=== PATIENT | female | born 1940 | race Caucasian/White ===

== ENCOUNTER 2017-04-08 12:12 | Emergency (ER) | payer OTHER, MEDICARE ==
--- NOTE | 2017-04-08 12:22 | PDOC ---
Attending Attestation - Resident Resident Name: Norah Love - ED Attending Attestation I have performed the following: I have examined & evaluated the patient, The case was reviewed & discussed with the resident, I agree w/resident's findings & plan, Exceptions are as noted - HPI HPI: 04/08/17 12:40 76yo F hx COPD, breast ca in remission, HTN, lung nodule p/w fall after her pants leg was caught on a drawer. She fell onto her R side with head strike and reports a few seconds of LOC. Per her , she was back to her baseline immediately when she came to. Reports R arm pain but no headache. Was able to walk afterwards. Has otherwise been in her USOH. Denies recent fevers, chills, CP, SOB, abd pain, N/V/D, LE edema, dysuria. - Physicial Exam PE: 04/08/17 12:47 GENERAL: Awake, alert, and fully oriented, in no acute distress HEAD: No signs of trauma EYES: PERRLA, EOMI, sclera anicteric, conjunctiva clear ENT: Auricles normal inspection, hearing grossly normal, nares patent, oropharynx clear without exudates. Moist mucosa NECK: Normal ROM, supple, no lymphadenopathy, JVD, or masses LUNGS: Breath sounds equal, clear to auscultation bilaterally. No wheezes, and no crackles HEART: Regular rate and rhythm, normal S1 and S2, no murmurs, rubs or gallops ABDOMEN: Soft, nontender, normoactive bowel sounds. No guarding, no rebound. No masses EXTREMITIES: RUE with pain in shoulder with passive range of motion, no edema, no bruising of RUE. No clubbing or cyanosis. No cords, erythema, or tenderness. 2+ distal pulses. Able to give thumbs up, okay sign, and outstretch her fingers in her RUE without difficulty. NEUROLOGICAL: Normal speech, cranial nerves intact, negative pronator drift, 5/ 5 strength in all 4 extremities, normal sensation to light touch in all 4 extremities, normal cerebellar exam, normal gait, normal reflexes and tone SKIN: Warm, Dry, normal turgor, no rashes or lesions noted. - Medical Decision Making 04/08/17 12:52 76-year-old female p/w RUE pain after a mechanical fall. Not on anticoagulation. Also with HS and LOC for a few seconds. Pt is neurologically intact but given LOC, will obtain CTH and c-spine. Will also image RUE. -CT -XR -tylenol -reassess
[2017-04-08 12:28] VITALS: BMI 20.7
--- NOTE | 2017-04-08 12:38 | PDOC ---
History of Present Illness - General Chief Complaint: Syncope/Near Syncope Stated Complaint: FALL Time Seen by Provider: 04/08/17 12:20 History Source: Patient, Family - History of Present Illness Initial Comments: 04/08/17 12:37 CC: Mechanical Fall Patient is a 76 y.o. female with a PMH of HTN, RA, h/o Breast CA (s/p L lumpectomy in 1997) and inoperable lung nodule who presents to our ED today c/o mechanical fall and subsequent R upper arm pain. Patient was bending down to arrange juarez in a flowerpot on the edge of her driveway when her pant leg was caught in a drawer on the driveway (patient's was removing furniture from the garage). Patient states she fell onto her right side hitting her head and possibly losing consciousness for few seconds. Patient denies any pre-fall shortness of breath, lightheadedness, blurry vision of confusion. Patient states her helped her post fall and further denies any confusion or headache. PMH: HTN, h/o Breast CA, lung nodule, rheumatoid arthritis (as per EMR, patient has h/o pancreatitis and multiple episodes of syncope) Past surgical: L lumpectomy (1997), appendicitis (childhood) Social: (-) nicotine, (-) alcohol, (-) marijuana/cocaine/heroin PCP: Dr. Bowman Allergies: Morphine 04/08/17 12:50 04/08/17 13:03 04/08/17 13:15 Past History - Past Medical History Allergies/Adverse Reactions: Allergies Allergy/AdvReac Type Severity Reaction Status Date / Time morphine AdvReac Mild N/V Verified 04/08/17 12:17 Home Medications: Ambulatory Orders Amlodipine Besylate [Norvasc -] 5 mg PO BID 10/15/15 Labetalol HCl [Normodyne -] 200 mg PO BID 10/15/15 Prednisone [Deltasone -] 7 mg PO DAILY 04/14/16 Acetaminophen [Tylenol -] 500 mg PO Q8H #36 tablet 04/08/17 Anemia: Yes Asthma: No Cancer: Yes (BREAST) Cardiac Disorders: No CVA: Yes (tia) COPD: Yes (chronic hemoptysis) CHF: No Dementia: No Diabetes: No GI Disorders: Yes (gastritis, pancreatitis) Disorders: No HTN: Yes Hypercholesterolemia: No Liver Disease: No Psychiatric Problems: No Suicide Attempt (Hx): No Seizures: No Thyroid Disease: No - Surgical History Abdominal Surgery: Yes (stent placement pancreas) Appendectomy: Yes Cholecystectomy: No Orthopedic Surgery: No - Immunization History Immunization Up to Date: Yes - Psycho/Social/Smoking Cessation Hx Anxiety: No Suicidal Ideation: No Smoking Status: No Smoking History: Never smoked Have you smoked in the past 12 months: No Number of Cigarettes Smoked Daily: 0 Hx Alcohol Use: No Drug/Substance Use Hx: No Substance Use Type: None Hx Substance Use Treatment: No Review of Systems - Review of Systems Constitutional: No: Fever, Weakness, Unexplained wgt Loss HEENTM: No: Blurred Vision, Double Vision, Tinnitus, Hearing Loss Respiratory: No: Shortness of Breath Cardiac (ROS): No: Chest Pain, Edema, Irregular Heart Rate, Lightheadedness, Palpitations ABD/GI: No: Constipated, Diarrhea Neurological: Yes: Pre-Existing Deficit, Tremors. No: Headache, Numbness All Other Systems: Reviewed and Negative *Physical Exam - Vital Signs Last Vital Signs Temp Pulse Resp BP Pulse Ox 98.3 F 70 20 129/69 95 04/08/17 12:13 04/08/17 12:13 04/08/17 12:13 04/08/17 12:13 04/08/17 12:13 - Physical Exam General Appearance: Yes: Appropriately Dressed, Thin HEENT: positive: EOMI, TRINY Neck: positive: Normal Thyroid, Supple Respiratory/Chest: positive: Lungs Clear, Normal Breath Sounds Cardiovascular: positive: Regular Rhythm, Regular Rate, S1, S2 Musculoskeletal: positive: Decreased Range of Motion (Decreased ROM in RUE, TTP over R humerus, RUE neurovascularly intact, R mandarin chinese teacher intact) Extremity: positive: Normal Capillary Refill, Other (R Humerus/Shoulder edematous c/o L) Integumentary: positive: Dry Neurologic: positive: boiler erector II-XII NML intact, Fully Oriented, Alert ED Treatment Course - RADIOLOGY Radiology Studies Ordered: Category Date Time Status HEAD CT WITHOUT CONTRAST [CT] Stat CT Scan 04/08/17 12:36 Ordered HUMERUS-RIGHT [RAD] Stat Radiology 04/08/17 12:36 Ordered Medical Decision Making - Medical Decision Making 04/08/17 13:41 Patient is a 76 y.o. female who presents following a mechanical fall earlier today in which she hit her head +/- LOC and . On PE, patient is A&O x4, however is c/o RUE pain, localized over her humerus. PLAN 1. CT head 2. R humerus XR 3. R shoulder XR 4. Chest XR 04/08/17 19:03 R humerus XR shows acute fracture of humeral head. CT chest/RUE shows comminuted fracture of humeral neck. Patient RUE stablized in a sling and patient discharged with instruction to follow-up with orthopedic surgery. Also , patient's PCP to be contacted Monday to give updated information on bronchiectasis appreciated on CXR and CT Chest. *DC/Admit/Observation/Transfer Diagnosis at time of Disposition: Falls - Discharge Dispostion Admit: No - Prescriptions Prescriptions: Acetaminophen [Tylenol -] 500 mg PO Q8H #36 tablet - Referrals Referrals: Raysa Davis MD [Primary Care Provider] - - Patient Instructions Additional Instructions: You were evaluated today in the ED and X-ray and CT scan showed that you have a fractured humerus. We have placed your arm in a sling, please keep the sling on daily and at night and remove only when showering. Please call Dr. Pryor, Orthopedic Surgery at [phone] on Monday (April 10, 2017) to make an appointment for further treatment. A prescription for supply Tylenol has been called to your pharmacy. Please return to the Emergency Department should you experience severe pain, shortness of breath or chest pain. - Attestations Physician Attestion: 04/08/17 18:35 I, Dr. Norah Love, attest that this document reflect my medical decision making.
[2017-04-08] MEDS ORDERED: ACETAMINOPHEN 500 MG TABLET (FP) PO ONE (12:50)
[2017-04-08 17:48] VITALS: TEMP 98.2
[2017-04-08 19:07] VITALS: BP 160/68; PULSE 66
== END 2017-04-08 19:09 | disposition home or self-care (01) ==
LOC: JER 12:12
DX: S42.294A Other nondisplaced fracture of upper end of right humerus, initial encounter for closed fracture (principal); S09.8XXA Other specified injuries of head, initial encounter; W01.198A Fall on same level from slipping, tripping and stumbling with subsequent striking against other object, initial encounter; Y93.H2 Activity, gardening and landscaping; Y92.014 Private driveway to single-family (private) house as the place of occurrence of the external cause; I10 Essential (primary) hypertension; M06.9 Rheumatoid arthritis, unspecified; Z85.3 Personal history of malignant neoplasm of breast
CPT/HCPCS: 70450-TC; 71020-TC; 71250-TC; 72125-TC; 73030-TC-RT; 73060-TC-RT; 73200-TC-RT; 99283-25

== ENCOUNTER 2017-04-16 13:05 | Inpatient (IN) | payer OTHER, MEDICARE ==
[2017-04-16 13:15] VITALS: BMI 20.7
--- NOTE | 2017-04-16 13:31 | PDOC ---
Attending Attestation - Resident Resident Name: Felicitas Epperson - ED Attending Attestation I have performed the following: I have examined & evaluated the patient, The case was reviewed & discussed with the resident, I agree w/resident's findings & plan, Exceptions are as noted - HPI HPI: 04/16/17 13:30 Broken Arm, Nausea and Vomiting after Pain Medicine - Physicial Exam PE: 04/16/17 13:30 VSS/ NAD/ Not Hypotensive Not Tachycardia - Medical Decision Making 04/16/17 13:[address] Epperson's assessment and plan
[2017-04-16] MEDS ORDERED: SODIUM CHLORIDE 1,000 ML IV STA ×2 (13:49→16:53)
[2017-04-16 14:35] LABS: BASOPHIL 0.3 % (0-2.0); EOSINOPHIL 1.7 % (0-4.5); MCH 28.6 pg (25.7-33.7); MCHC 32.7 g/dl (32.0-36.0); MEAN CELL VOLUME 87.4 fl (80-96); MEAN PLT VOLUME 7.1 fl (7.5-11.1); NEUTROPHILS 84.8 % (42.8-82.8); PLATELET COUNT 295 K/MM3 (134-434)
[2017-04-16] MEDS ORDERED: ONDANSETRON 4 MG/2 ML VIAL IVPB ONE (14:43)
[2017-04-16 15:01] LABS: ALBUMIN 3.2 g/dl (3.4-5.0); ANION GAP 9 (8-16); CALCIUM 9.1 mg/dL (8.5-10.1); CO2 27 mmol/L (21-32); CREATININE 1.2 mg/dL (0.55-1.02); GLUCOSE,RANDOM 124 mg/dL (74-106); SGPT/ALT 27 U/L (12-78)
[2017-04-16 15:05] LABS: ALK PHOS 82 U/L (45-117); BILIRUBIN,TOTAL 0.7 mg/dL (0.2-1.0); TOT PROT 7.7 g/dl (6.4-8.2); TROPONIN I < 0.02 ng/ml (0.00-0.05)
[2017-04-16 15:06] LABS: CPK 96 IU/L (26-192); SGOT/AST 43 U/L (15-37)
[2017-04-16] MEDS ORDERED: ONDANSETRON 4 MG/2 ML VIAL ONE (15:22)
[2017-04-16] MEDS ORDERED: traMADol HCL 50 MG TABLET PO ONE (15:27)
[2017-04-16] MEDS ORDERED: traMADol HCL 50 MG TABLET ONE (15:29)
[2017-04-16 16:16] LABS: URINE APPEARANCE CLEAR; URINE BILIRUBIN NEGATIVE (NEGATIVE); URINE BLOOD NEGATIVE (NEGATIVE); URINE COLOR LTYELLOW; URINE GLUCOSE (UA) NEGATIVE (NEGATIVE); URINE KETONE NEGATIVE (NEGATIVE); URINE LEUK ESTERASE NEGATIVE (NEGATIVE); URINE NITRITE NEGATIVE (NEGATIVE); URINE PROTEIN NEGATIVE (NEGATIVE); URINE UROBILINOGEN NEGATIVE mg/dL (0.2-1.0)
--- NOTE | 2017-04-16 16:58 | PDOC ---
History of Present Illness - General Chief Complaint: Nausea/Vomiting Stated Complaint: RT JOINT PAIN Time Seen by Provider: 04/16/17 13:17 History Source: Patient, Spouse Exam Limitations: Other (lethargic) - History of Present Illness Initial Comments: 76yo F with PMH of syncope, HTN presenting c/o nausea s/p syncope. Pt was last in ER one week ago with a Right humerus fx s/p mechanical fall. Pt has been taking Tramadol x 1 week for the fracture pain. Pt reports decreased appetite over the last week. This morning she had coffee and toast for breakfast, then went back to bed to lay down. At noon she syncopized in bed, and upon regaining consciousness felt nausea with some dry heaving prompting pt to come to the ER. Pt's at bedside assisted in giving history. Pt denies fever , chest pain, palpitations, SOB. 04/16/17 16:56 Timing/Duration: 1-3 hours Past History - Past Medical History Allergies/Adverse Reactions: Allergies Allergy/AdvReac Type Severity Reaction Status Date / Time morphine AdvReac Mild N/V Verified 04/16/17 13:15 Home Medications: Ambulatory Orders Amlodipine Besylate [Norvasc -] 5 mg PO DAILY 10/15/15 Labetalol HCl [Normodyne -] 200 mg PO BID 10/15/15 Prednisone [Deltasone -] 7 mg PO DAILY 04/14/16 Acetaminophen [Tylenol -] 500 mg PO Q8H #36 tablet 04/08/17 Tramadol HCl [Ultram] 50 mg PO Q6H PRN 04/16/17 Anemia: Yes Asthma: No Cancer: Yes (BREAST, inoperable lung Ca) Cardiac Disorders: No CVA: Yes (tia) COPD: Yes (chronic hemoptysis) CHF: No Dementia: No Diabetes: No GI Disorders: Yes (gastritis, pancreatitis) Disorders: No HTN: Yes Hypercholesterolemia: No Liver Disease: No Psychiatric Problems: No Suicide Attempt (Hx): No Seizures: No Thyroid Disease: No Other medical history: syncope, rheumatoid arthritis - Surgical History Abdominal Surgery: Yes (stent placement pancreas) Appendectomy: Yes Cholecystectomy: No Orthopedic Surgery: No Other Surgical History: Left lumpectomy 2/2 breast Ca 04/16/17 17:22 - Immunization History Immunization Up to Date: Yes - Psycho/Social/Smoking Cessation Hx Anxiety: No Suicidal Ideation: No Smoking Status: No Smoking History: Never smoked Have you smoked in the past 12 months: No Number of Cigarettes Smoked Daily: 0 Information on smoking cessation initiated: No Hx Alcohol Use: No Drug/Substance Use Hx: No Substance Use Type: None Hx Substance Use Treatment: No Review of Systems - Review of Systems Able to Perform ROS?: Yes Is the patient limited Chinese proficient: No Constitutional: Yes: Loss of Appetite, Weight Stable. No: Chills, Diaphoresis, Fever HEENTM: No: Recent change in vision, Ear Pain, Nose Pain, Throat Pain Respiratory: No: Cough, Orthopnea, Shortness of Breath, Stridor, Wheezing, Hemoptysis Cardiac (ROS): Yes: Syncope. No: Chest Pain, Irregular Heart Rate, Palpitations ABD/GI: Yes: Nausea. No: Abdominal Distended, Constipated, Diarrhea, Rectal Bleeding, Vomiting : No: Dysuria, Hematuria Musculoskeletal: Yes: Joint Pain (Right shoulder s/p humerus fx) Integumentary: Yes: Bruising (Right shoulder). No: Dryness, Lesions, Rash Neurological: Yes: Headache (mild), Weakness (mild generalized), Dizziness (mild ). No: Numbness, Paresthesia, Tingling *Physical Exam - Vital Signs Last Vital Signs Temp Pulse Resp BP Pulse Ox 97.7 F 77 16 160/80 98 04/16/17 13:07 04/16/17 15:48 04/16/17 15:48 04/16/17 15:48 04/16/17 15:48 - Physical Exam General Appearance: Yes: Thin, Other (lethargic, had difficulty answering all my questions. Pt's filled in the gaps for the history.). No: Apparent Distress HEENT: positive: EOMI, Normal Voice, Other (dry mucous membranes). negative: Pale Conjunctivae, Scleral Icterus (R), Scleral Icterus (L) Neck: positive: Trachea midline, Supple Respiratory/Chest: positive: Lungs Clear, Normal Breath Sounds. negative: Respiratory Distress, Accessory Muscle Use Cardiovascular: positive: Regular Rhythm, Regular Rate, S1, S2. negative: Murmur Gastrointestinal/Abdominal: positive: Soft. negative: Distended, Guarding, Rebound, Tenderness Extremity: negative: Swelling, Calf Tenderness, Erythema Integumentary: positive: Bruising (Right shoulder) Neurologic: positive: Alert. negative: Confused, Disoriented ED Treatment Course - LABORATORY CBC & Chemistry Diagram: 04/16/17 14:11 04/16/17 14:11 - ADDITIONAL ORDERS Additional order review: Laboratory Results 04/16/17 04/16/17 15:46 14:11 Sodium 137 Potassium 4.7 Chloride 101 Carbon Dioxide 27 Anion Gap 9 BUN 28 H Creatinine 1.2 H Creat Clearance w eGFR 43.56 Random Glucose 124 H Calcium 9.1 Total Bilirubin 0.7 AST 43 H D ALT 27 Alkaline Phosphatase 82 Creatine Kinase 96 Troponin I < 0.02 Total Protein 7.7 Albumin 3.2 L Urine Color Ltyellow Urine Appearance Clear Urine pH 7.0 Urine Protein Negative Urine Glucose (UA) Negative Urine Ketones Negative Urine Blood Negative Urine Nitrite Negative Urine Bilirubin Negative Urine Urobilinogen Negative Ur Leukocyte Esterase Negative 04/16/17 14:11 RBC 3.91 MCV 87.4 MCHC 32.7 RDW 15.0 MPV 7.1 L D Neutrophils % 84.8 H Lymphocytes % 5.8 L Monocytes % 7.4 D Eosinophils % 1.7 D Basophils % 0.3 - Medications Given in the ED: ED Medications Discontinued Medications Generic Name Dose Route Start Last Admin Trade Name Freq PRN Reason Stop Dose Admin Sodium Chloride 1,000 mls @ 1,000 mls/hr 04/16/17 13:49 04/16/17 13:51 Normal Saline - IV 04/16/17 14:48 1,000 mls/hr ASDIR STA Administration Ondansetron HCl 8 mg 04/16/17 14:43 04/16/17 15:28 Zofran Injection IVPB 04/16/17 14:44 8 mg ONCE ONE Administration Tramadol HCl 50 mg 04/16/17 15:27 04/16/17 15:47 Ultram - PO 04/16/17 15:28 50 mg ONCE ONE Administration Medical Decision Making - Medical Decision Making 76yo F with PMH of syncope, HTN presents c/o nausea s/p syncope. Pt with Right humerus fx s/p mechanical fall 1 week ago. Pt takes Tramadol for pain; nausea is a common adverse reaction. Pt likely dehydrated 2/2 decreased po intake over the last week. Zofran given for nausea 1 L NS bolus CBC with diff, CMP troponin (-) U/A (-) EKG -> NSR, LVH Pt has extensive hx of syncope, 30+ yrs, at all different times of day, with no discernable pattern. Most recent Head CT non-contrast and Chest CT non- contrast were on 04/08/17 showing no significant interval change. Tramadol given for pain After Zofran and NS bolus, pt looks better and reports she is feeling better. However, pt's will not take pt home as he feels she needs to be admitted. Pt's went home. Pt's PMD (Dr. Davis) called. Dr. Puentes is covering for Dr. Davis, and agreed to the admission since pt's has left. Consider Cardiology Consult and echo. 04/16/17 17:34 *DC/Admit/Observation/Transfer Diagnosis at time of Disposition: Syncope - Discharge Dispostion Admit: Yes - Referrals Referrals: Raysa Davis MD [Primary Care Provider] -
--- NOTE | 2017-04-16 22:47 | HP ---
DATE OF ADMISSION: 04/16/2017 CHIEF COMPLAINT: Syncope. HISTORY OF PRESENT ILLNESS: On the day of admission, this 76-year-old female with multiple medical problems including recent syncope and recent right humerus fracture for which the patient is taking tramadol, presents to the emergency room after the patient had an episode of syncope while she was lying in bed. This was soon after the patient had taken breakfast. The patient reports a feeling of weakness prior to the syncope, but no other associated complaints. The patient recovered normal mentation spontaneously and has no subsequent symptoms. The patient reports no specific aggravating or relieving factors. PAST MEDICAL HISTORY: Syncope, recent right humerus fracture, history of hypertension, history of COPD, history of rheumatoid arthritis, breast and lung cancer, gastritis and pancreatitis. PAST SURGICAL HISTORY: Pancreas stent placement, left lumpectomy secondary to breast cancer. FAMILY AND SOCIAL HISTORY: Unremarkable except for remote history of smoking. ALLERGIES: MORPHINE. HOME MEDICATIONS: Reviewed. REVIEW OF SYSTEMS: Unremarkable, except for presenting complaints. PHYSICAL EXAMINATION: General: This is an elderly female, in no acute distress. Vital signs: Temperature on admission 97.7 degrees Fahrenheit, pulse 77 per minute and regular, respiratory rate 16 per minute and nonlabored, blood pressure initially 160/80 and later 135/80, oxygen saturation 98%. HEENT: Examination is within normal limits. Neck: Supple with no JVD. Chest: Clear to auscultation with scattered crackles. Good air entry. No use of accessory muscles. Heart: Rate and rhythm are regular. S1, S2 heard. Abdomen: Soft, nontender, nondistended with normal bowel sounds. Extremities: No edema. Neurologic: The patient was awake, alert, oriented x3 with no gross focal neurological deficits. LABORATORY: WBC count is 10, hemoglobin 11.2, hematocrit was 34.2%, platelet count 295, sodium 137, potassium 4.7, BUN 28, creatinine 1.2. An EKG showed normal sinus rhythm with left ventricular hypertrophy by electrical criteria. IMPRESSION: 1. Syncope. 2. History of hypertension. 3. History of rheumatoid arthritis. 4. Chronic obstructive pulmonary disease. 5. Breast and lung cancer. 6. Transient ischemic attack in the past. 7. History of gastritis and pancreatitis. 8. History of recent right humerus fracture. PLAN: The patient will be admitted and monitored on telemetry. Cardiology will be consulted. The patient's usual medications have been continued. Blood pressure will be monitored and treated accordingly. Further management will be according to the results of these interventions. Tierney [id number]
[2017-04-16] MEDS: LABETALOL HCL 200 MG TABLET (FP) PO SCH (22:50)
[2017-04-16] MEDS: traMADol HCL 50 MG TABLET PO PRN (23:31)
[2017-04-17] MEDS: ACETAMINOPHEN 500 MG TABLET (FP) PO PRN ×2 (03:01→16:23)
[2017-04-17 07:52] LABS: BASOPHIL 0.3 % (0-2.0); EOSINOPHIL 1.8 % (0-4.5); MCH 28.5 pg (25.7-33.7); MCHC 32.7 g/dl (32.0-36.0); MEAN CELL VOLUME 87.1 fl (80-96); MEAN PLT VOLUME 6.9 fl (7.5-11.1); PLATELET COUNT 305 K/MM3 (134-434); RDW 14.9 % (11.6-15.6); WHITE BLOOD COUNT 7.2 K/mm3 (4.0-10.0)
[2017-04-17 08:23] LABS: ANION GAP 9 (8-16); CO2 27 mmol/L (21-32); GLUCOSE,RANDOM 67 mg/dL (74-106)
[2017-04-17 08:31] LABS: ALK PHOS 70 U/L (45-117); BILIRUBIN,TOTAL 0.7 mg/dL (0.2-1.0); SGOT/AST 23 U/L (15-37); SGPT/ALT 23 U/L (12-78); TROPONIN I 0.03 ng/ml (0.00-0.05)
[2017-04-17] MEDS: traMADol HCL 50 MG TABLET PO PRN ×2 (09:50→16:23)
[2017-04-17] MEDS: LABETALOL HCL 200 MG TABLET (FP) PO SCH ×2 (09:51→22:52)
[2017-04-17] MEDS: amLODIPine BESYLATE 5 MG TABLET (FP) PO SCH (09:52)
[2017-04-17] MEDS ORDERED: predniSONE 20 MG TABLET (UD) PO SCH (10:00)
[2017-04-17] MEDS: ENOXAPARIN NA (PORCINE) 40 MG/0.4 ML DISP.SYRIN SQ SCH (10:47)
[2017-04-17] MEDS: PREDNISONE PO SCH (13:38)
--- NOTE | 2017-04-17 18:44 | PN ---
Progress Note (short form) - Note Progress Note: Pt seen and examined. She is about 1 week s/p fall and right proximal humerus fracture. She c/o pain with motion, otherwise is comfortable. RUE is NVI Good ROM at the right elbow, forearm, wrist, fingers. NTD from an ortho pov I rec wearing a sling.
--- NOTE | 2017-04-17 20:44 | PN ---
Progress Note, Physician Chief Complaint: Feels better - Current Medication List Current Medications: Active Medications Acetaminophen (Tylenol -) 500 mg PO Q8H PRN PRN Reason: PAIN OR FEVER Last Admin: 04/17/17 16:23 Dose: 500 mg Amlodipine Besylate (Norvasc -) 5 mg PO DAILY [facility] Last Admin: 04/17/17 09:52 Dose: 5 mg Enoxaparin Sodium (Lovenox -) 40 mg SQ DAILY [facility] Last Admin: 04/17/17 10:47 Dose: 40 mg Labetalol HCl (Normodyne -) 200 mg PO BID [facility] Last Admin: 04/17/17 09:51 Dose: 200 mg Prednisone 5 mg/ Prednisone 2 (mg) 7 mg PO DAILY [facility] Last Admin: 04/17/17 13:38 Dose: 7 mg Tramadol HCl (Ultram -) 50 mg PO Q6H PRN PRN Reason: PAIN Last Admin: 04/17/17 16:23 Dose: 50 mg - Objective Vital Signs: Vital Signs Temperature 99.8 F H 04/17/17 17:50 Pulse Rate 76 04/17/17 17:50 Respiratory Rate 18 04/17/17 17:50 Blood Pressure 125/73 04/17/17 17:50 O2 Sat by Pulse Oximetry (%) 95 04/17/17 09:00 Constitutional: Yes: No Distress Neck: Yes: Supple Cardiovascular: Yes: Regular Rate and Rhythm, S1, S2 Respiratory: Yes: CTA Bilaterally Gastrointestinal: Yes: Normal Bowel Sounds, Soft Neurological: Yes: Alert, Oriented. No: Loss of Sensation ...Motor Strength: WNL Labs: CBC, BMP 04/17/17 06:00 04/17/17 06:00 Problem List - Problems (1) Syncope Assessment/Plan: Troponins negative, telemetry unremarkable, cardiology eval pending Code(s): R55 - SYNCOPE AND COLLAPSE Qualifiers: Encounter type: sequela (2) Humerus fracture Assessment/Plan: Seem by ortho, sling, pain control, rehab Code(s): S42.309A - UNSP FRACTURE OF SHAFT OF HUMERUS, UNSP ARM, INIT Qualifiers: Encounter type: subsequent encounter Humerus Location: proximal Fracture type: closed Fracture morphology: unspecified fracture morphology Laterality: right Fracture healing: with routine healing Qualified Code(s): S42.201D - Unspecified fracture of upper end of right humerus , subsequent encounter for fracture with routine healing
--- NOTE | 2017-04-17 22:16 | EKG ---
Test Reason : Blood Pressure : / mmHG Vent. Rate : 065 BPM Atrial Rate : 065 BPM P-R Int : 158 ms QRS Dur : 102 ms QT Int : 444 ms P-R-T Axes : 053 -24 045 degrees QTc Int : 461 ms NORMAL SINUS RHYTHM MODERATE VOLTAGE CRITERIA FOR LVH, MAY BE NORMAL VARIANT INFERIOR INFARCT , AGE UNDETERMINED ABNORMAL ECG WHEN COMPARED WITH ECG OF 14-APR-2016 17:10, NO SIGNIFICANT CHANGE WAS FOUND Confirmed by JANIS ALTAMIRANO MD ([id number]) on 04/17/2017 10:15:42 PM Referred By: Confirmed By:JANIS ALTAMIRANO MD
[2017-04-18] MEDS: traMADol HCL 50 MG TABLET PO PRN ×3 (06:37→22:15)
--- NOTE | 2017-04-18 08:48 | PN ---
Progress Note (short form) - Note Progress Note: 76 yo F admitted for a possible syncopal episode on Monday. went to lie down after lunch, took a short nap and when attempted to get up got very dizzy, slumped back to bed and her mind was very foggy. could not get her to the car so they called 911 to come to er. known history of frequent syncopal episodes without significant abnormalities. recently suffered a right humerus fracture, for which she used a sling and prn tramadol. 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
[2017-04-18 10:01] LABS: BASOPHIL 0.2 % (0-2.0); EOSINOPHIL 1.1 % (0-4.5); MCH 28.4 pg (25.7-33.7); MCHC 32.3 g/dl (32.0-36.0); MEAN CELL VOLUME 87.7 fl (80-96); MEAN PLT VOLUME 6.6 fl (7.5-11.1); NEUTROPHILS 72.6 % (42.8-82.8); PLATELET COUNT 330 K/MM3 (134-434); RDW 14.9 % (11.6-15.6); WHITE BLOOD COUNT 8.3 K/mm3 (4.0-10.0)
[2017-04-18] MEDS: amLODIPine BESYLATE 5 MG TABLET (FP) PO SCH (10:28)
[2017-04-18] MEDS: ENOXAPARIN NA (PORCINE) 40 MG/0.4 ML DISP.SYRIN SQ SCH (10:28)
[2017-04-18] MEDS: LABETALOL HCL 200 MG TABLET (FP) PO SCH ×2 (10:28→22:13)
[2017-04-18] MEDS ORDERED: PT OWN MED DRAWER 7, Y5N ONE (10:30)
[2017-04-18] MEDS: PREDNISONE PO SCH (10:32)
[2017-04-18 10:35] LABS: ALBUMIN 3.1 g/dl (3.4-5.0); ALK PHOS 84 U/L (45-117); ANION GAP 10 (8-16); BILIRUBIN,TOTAL 0.7 mg/dL (0.2-1.0); CALCIUM 9.4 mg/dL (8.5-10.1); CO2 29 mmol/L (21-32); CREATININE 1.3 mg/dL (0.55-1.02); GLUCOSE,RANDOM 93 mg/dL (74-106); SGOT/AST 27 U/L (15-37); SGPT/ALT 27 U/L (12-78); TOT PROT 7.5 g/dl (6.4-8.2); TROPONIN I 0.02 ng/ml (0.00-0.05)
--- NOTE | 2017-04-18 14:34 | PN ---
Progress Note (short form) - Note Progress Note: comfortable nvi Imp: doing well Plan: DC when medically ok. F/U as outpatient X 1 week
--- NOTE | 2017-04-18 20:41 | CONS ---
DATE OF CONSULTATION: 04/18/2017 TIME OF CONSULTATION: 7:15 p.m. CARDIOLOGY CONSULTATION REQUESTED BY: Raysa Davis MD CHIEF COMPLAINT: Loss of consciousness. The patient is a 76-year-old [place]ri[place] female with history of hypertension, polymyalgia rheumatica, and chronic obstructive pulmonary disease. Patient states that she recently had a syncopal episode which occurred while she was bending down, and felt lightheaded and fell on her right shoulder and apparently had transient loss of consciousness. She sustained a fracture of the shoulder. The patient, while she was home, got up from her bed and noticed lightheadedness that she describes as being severe. There is no history of dizziness, and she suddenly fell back and again lost consciousness that was witnessed by her . There is no history of loss of sphincter control, seizures, or focal weakness. There is no history of chest pain or discomfort either at rest or with exertion, history of exertional dyspnea especially walking up an incline, no history of paroxysmal nocturnal dyspnea or orthopnea. No history of palpitations. History of intermittent vertigo. No history of diabetes mellitus, hypercholesterolemia. No history of heart murmur. PAST HISTORY: As mentioned in the history of present illness. SURGICAL HISTORY: 1. Status post appendectomy. 2. History of stenting of the pancreatic duct. 3. Status post left lumpectomy followed by chemotherapy and radiation. 4. Status post left cataract extraction. SOCIAL HISTORY: . Has 3 children, 2 sons and a daughter. The sons are healthy. The daughter has had carcinoma of the fallopian tube. Does not smoke or drink. FAMILY HISTORY: Father in his late 80s of unknown cause. Mother in her 40s of unknown cause. Has 2 sisters and 2 brothers who are healthy. ALLERGIES: Patient is intolerant to MORPHINE. CURRENT MEDICATIONS: 1. Prednisone 7 mg p.o. daily. 2. Lovenox 40 mg subcutaneous daily. 3. Amlodipine 5 mg p.o. daily. 4. Labetalol 200 mg p.o. b.i.d. 5. Tramadol 50 mg q.6 h. p.r.n. REVIEW OF SYSTEMS: Constitutional: No history of chills, fever or night sweats. No history of unintentional weight loss. HEENT: Denies having any recent headaches, diplopia, or blurred vision. No history of epistaxis, hoarseness. No history of recent tinnitus. History of vertigo. No history of deafness reported. Cardiovascular: No history of palpitations, chest pain or discomfort. No history of rheumatic fever. Respiratory: History of COPD. No history of recent cough, expectoration or hemoptysis. No history of tuberculosis. Gastrointestinal: No history of nausea, vomiting, melena, or hematemesis. No history of abdominal pain or discomfort. No history of change in bowel habits. Neurological: See history of present illness. History of tremors involving the right hand and arm, right foot, and mouth, which according to the patient has progressively become more pronounced. Musculoskeletal: History of polymyalgia rheumatica. No history of arthralgias. Endocrine: No history of polyuria or polydipsia. Denies having intolerance to cold or warm weather. Hematological: No history of anemia, ecchymosis, or bleeding. EXAMINATION: General: A 76-year-old female who is in no acute distress. She was alert, coherent. There is no pallor, cyanosis, clubbing, or jaundice. Vital Signs: Blood pressure was 146/75 mmHg. Pulse was 82 beats per minute and regular. She was afebrile. Respirations were 18 per minute. Neck: Supple. No jugular venous distention. Carotids were equal and upstrokes were normal. No bruits were heard and no thyromegaly was present. Heart: PMI was in the 5th intercostal space. No heaves or thrills. S1 and S2 were normal. No murmur or gallops were heard. Lungs: Clear on auscultation. Chest: Probable scoliosis. Expansion was symmetrical. Abdomen: Soft, slightly protuberant, and nontender. No hepatosplenomegaly or palpable masses were felt. Bowel sounds were heard, no bruits were present. Extremities: No calf tenderness or dependent edema. Pulses were equal. Posterior tibial pulses could not be palpated. There were resting and intentional tremors involving the right hand, right foot, and lips. LABORATORY DATA: CT scan of the head dated April 18: Since April 08, 2017, there is moderate atrophy, ventricular dilatation, and mild periventricular chronic microvascular ischemic changes. No mass lesion, focal acute infarct, or intracranial hemorrhage are identified. There is calcification of the cavernous carotid arteries. CBC April 18, 2017: WBC 8300, hemoglobin 11.7 g, platelet count 330,000. Monocytes were elevated at 13.7. Sodium 140, potassium 3.9, chloride 101, CO2 29 mmol/L, BUN 26, creatinine 1.3 mg/dL. Normal liver function tests. Calcium was 9.4 mg/dL. ECG April 16, 2017: Normal sinus rhythm, moderate voltage criteria for LVH, may be a normal variant. Inferior infarct, age indeterminate. When compared to ECG of April 14, 2016, no significant changes are found. IMPRESSION: 1. Syncope, etiology to be determined. 2. Hypertension. 3. Hypertensive . 4. Chronic obstructive pulmonary disease. 5. History of pancreatitis, status post stenting of the pancreatic duct. 6. Status post carcinoma of the breast. 7. History of tremors, etiology to be determined. Parkinsonism needs to be excluded. RECOMMENDATIONS: 1. Check blood pressure supine and standing. 2. Holter monitor. 3. Neurological evaluation. 4. Carotid ultrasound. 5. Cause of syncope is not determined. Patient should have a tilt table test and, if necessary, event monitoring. Thank you for your referral. Yours sincerely, ADAM WEBSTER M.D. [id number]
[2017-04-19] MEDS: traMADol HCL 50 MG TABLET PO PRN ×3 (05:59→20:40)
[2017-04-19 07:31] LABS: BASOPHIL 0.4 % (0-2.0); EOSINOPHIL 1.3 % (0-4.5); MCH 28.6 pg (25.7-33.7); MEAN CELL VOLUME 86.8 fl (80-96); PLATELET COUNT 310 K/MM3 (134-434); RDW 14.8 % (11.6-15.6); WHITE BLOOD COUNT 7.8 K/mm3 (4.0-10.0)
[2017-04-19 07:45] LABS: ANION GAP 8 (8-16); CALCIUM 8.9 mg/dL (8.5-10.1); CO2 31 mmol/L (21-32); GLUCOSE,RANDOM 77 mg/dL (74-106)
[2017-04-19 07:52] LABS: ALK PHOS 79 U/L (45-117); BILIRUBIN,TOTAL 0.7 mg/dL (0.2-1.0); CREATININE 1.1 mg/dL (0.55-1.02); SGOT/AST 24 U/L (15-37); SGPT/ALT 27 U/L (12-78); TOT PROT 6.9 g/dl (6.4-8.2); TROPONIN I 0.04 ng/ml (0.00-0.05)
--- NOTE | 2017-04-19 08:36 | PN ---
Progress Note (short form) - Note Progress Note: 76 yo F admitted for a possible syncopal episode on Monday. went to lie down after lunch, took a short nap and when attempted to get up got very dizzy, slumped back to bed and her mind was very foggy. could not get her to the car so they called 911 to come to er. known history of frequent syncopal episodes without significant abnormalities. recently suffered a right humerus fracture, for which she used a sling and prn tramadol. 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
[2017-04-19] MEDS ORDERED: PT OWN MED DRAWER 7, Y5N ONE (08:50)
[2017-04-19] MEDS: ACETAMINOPHEN 500 MG TABLET (FP) PO PRN (08:57)
[2017-04-19] MEDS: PREDNISONE PO SCH (09:00)
[2017-04-19] MEDS: ENOXAPARIN NA (PORCINE) 40 MG/0.4 ML DISP.SYRIN SQ SCH (09:00)
[2017-04-19] MEDS: LABETALOL HCL 200 MG TABLET (FP) PO SCH (09:01)
[2017-04-19] MEDS: amLODIPine BESYLATE 5 MG TABLET (FP) PO SCH (09:01)
--- NOTE | 2017-04-19 19:05 | PN ---
Progress Note (short form) - Note Progress Note: 76yer old [place] female admitted with H/O syncope,known case of hypertension, polymyagia rheumatica and COPD.No further LOC,no palpitations or dizziness.work up in progress. Active Medications Acetaminophen (Tylenol -) 500 mg PO Q8H PRN PRN Reason: PAIN OR FEVER Last Admin: 04/19/17 08:57 Dose: 500 mg Amlodipine Besylate (Norvasc -) 5 mg PO DAILY [facility] Last Admin: 04/19/17 09:01 Dose: 5 mg Enoxaparin Sodium (Lovenox -) 40 mg SQ DAILY [facility] Last Admin: 04/19/17 09:00 Dose: 40 mg Labetalol HCl (Normodyne -) 200 mg PO BID [facility] Last Admin: 04/19/17 09:01 Dose: 200 mg Prednisone 5 mg/ Prednisone 2 (mg) 7 mg PO DAILY [facility] Last Admin: 04/19/17 09:00 Dose: 7 mg Tramadol HCl (Ultram -) 50 mg PO Q6H PRN PRN Reason: PAIN Last Admin: 04/19/17 10:41 Dose: 50 mg 76 year old female in no distress,no pallor,cyanosis,clubbing or jaundice. Vital Signs - 8 hr 04/19/17 14:55 Pulse Rate [ 82 Sitting] Pulse Rate [ 88 Standing] Pulse Rate [ 70 Supine] Blood Pressure 103/65 [Sitting] Blood Pressure 90/46 [Standing] Blood Pressure 133/73 [Supine] NECK: Supple,no JVD,carotids equal,no bruits or thyromegly. HEART: PMI in 5th ICS,no heaves or thrills.S1 and S2 were normal,NEC heard long the LSB.Grade I/ systolic murmur at the apex,no gallops heard. LUNGS: Bilateral basilar crepitations. ABDOMEN: Soft,nontender,no organomegaly or masses felt. EXTREMITIES: No calf tenderness or dependent edema. CBC, BMP 04/19/17 06:30 04/19/17 06:30 Echocardiogram report reviewed; Mitral and Tricuspid valve thickening with mild mitral and tricuspid regurgitation. Aortic valve thickening and aortic regurgitation A: 1. Syncope ot undetermined etiology. 2. Hypertension. 3. Polymyalgia Rheumatica. REcommendation; 1. Patient will require tilt table test if work up is inconclusive. 2. Holter monitor. 3. CT scan of the chest.
--- NOTE | 2017-04-19 20:56 | CONSULT ---
Consult - text type - Consultation Consultation Note: NEUROLOGY CONSULTATION is greatly appreciated: This 76 yo RHG woman with h/o HTN on labetolol, amlodipine, breat Ca, lung Ca, gastritis and pancreatitis is admitted after syncope. Pt fell 1 week ago with right humerus fracture treated with a sling. She recalls bending forward, then losing her balance, falling forward and then brief LOC. On day of admission was feeling week and unsteady. Became whoosy, dizzy and lightheaded and had brief LOC. Rapidly reoriented. Since admission, BP's have varied from 90/46-155/80. EKG-NSR. CT of head (reviewed): Normal. Pt notes > 1 year (maybe up to three) of progressive tremor. CHELI: Right arm and thigh echymoses. No bruits. No head trauma. NEURO: MS/Speech: Normal CN II-XII: Normal aside from rhythmic jaw tremor. Motor: Rhythmic (4-5 cps) Rest tremor. + cogwheel rigidity increased by reinforcement. Right arm strength difficult to test due to pain but Pts moves all groups well. Otherwise strength is normal. Normal reflexes. Toes downgoing. Coord: No FTN dystaxia Sensory: Normal Gait: Mild flexed and shuffling. IMP: Parkinson's Disease. Probable associated dysautonomia with orthostatic hypotension and syncope. SUGGEST: Keep well hydrated. Follow orthostatic BP's. Decrease labetolol to 100 mg BID Add Sinemet CR 25/100 as follows: 1/2 PO TID with meals x 3 days then 1 PO TID with meals. Neuro f/u as out patient. Thank you very much, Lino Hampton MD
[2017-04-19] MEDS: LABETALOL HCL 100 MG TABLET (FP) PO SCH (21:13)
[2017-04-20] MEDS ORDERED: PT OWN MED DRAWER 7, Y5N ONE ×3 (05:32→09:29)
[2017-04-20] MEDS: traMADol HCL 50 MG TABLET PO PRN (05:37)
[2017-04-20 07:06] LABS: BASOPHIL 0.5 % (0-2.0); EOSINOPHIL 1.9 % (0-4.5); MCH 28.4 pg (25.7-33.7); MCHC 32.8 g/dl (32.0-36.0); MEAN CELL VOLUME 86.6 fl (80-96); MEAN PLT VOLUME 6.9 fl (7.5-11.1); NEUTROPHILS 67.7 % (42.8-82.8); PLATELET COUNT 293 K/MM3 (134-434); RDW 14.7 % (11.6-15.6); WHITE BLOOD COUNT 6.8 K/mm3 (4.0-10.0)
[2017-04-20 07:28] LABS: ALBUMIN 2.8 g/dl (3.4-5.0); ANION GAP 9 (8-16); BILIRUBIN,TOTAL 0.6 mg/dL (0.2-1.0); CALCIUM 8.9 mg/dL (8.5-10.1); CO2 28 mmol/L (21-32); GLUCOSE,RANDOM 77 mg/dL (74-106); SGOT/AST 20 U/L (15-37); SGPT/ALT 23 U/L (12-78); TOT PROT 6.8 g/dl (6.4-8.2)
[2017-04-20 07:29] LABS: ALK PHOS 80 U/L (45-117)
--- NOTE | 2017-04-20 09:09 | DS ---
Physical Examination Vital Signs: Vital Signs Temperature 98.1 F 04/20/17 05:47 Pulse Rate 101 H 04/20/17 05:47 Respiratory Rate 20 04/20/17 05:47 Blood Pressure 138/89 04/20/17 05:47 O2 Sat by Pulse Oximetry (%) 96 04/19/17 22:00 Constitutional: Yes: Calm Eyes: Yes: EOM Intact HENT: Yes: Normocephalic Neck: Yes: Trachea Midline Cardiovascular: Yes: Regular Rate and Rhythm Respiratory: Yes: CTA Bilaterally Gastrointestinal: Yes: Normal Bowel Sounds, Soft Peripheral Pulses WNL: Yes Wound/Incision: Yes: Other (humerus fracture with hematoma) Neurological: Yes: Alert, Oriented, Tremors, Unsteady Gait Psychiatric: Yes: WNL Labs: CBC, BMP 04/20/17 06:00 04/20/17 06:00 Discharge Summary Reason For Visit: SYNCOPE Current Active Problems Anemia due to blood loss, chronic (Acute) Generalized weakness (Acute) History of polymyalgia rheumatica (Acute) Humerus fracture (Acute) ILD (interstitial lung disease) (Acute) Orthostatic hypotension (Acute) Pulmonary hypertension (Acute) Seizure (Acute) Syncope (Acute) Hospital Course: admitted for syncopal/nearsyncopal episode head CT unchanged echo unremarkable telemetry monitoring unremarkable noted to have orthostatic hypotension was seen by neurology -likely Parkinsons BP meds were reduced started sinemet educated on how to avoid orthostatic BP drops medically stable to f/up as outpt offered VNS, offered rehab evaluation, pt refused both Condition: Fair - Instructions Referrals: Raysa Davis MD [Primary Care Provider] - Disposition: HOME - Home Medications Comprehensive Discharge Medication List: Ambulatory Orders Amlodipine Besylate [Norvasc -] 5 mg PO DAILY 10/15/15 Prednisone [Deltasone -] 7 mg PO DAILY 04/14/16 Acetaminophen [Tylenol .Extra-Strength -] 500 mg PO Q8H #36 tablet 04/08/17 Tramadol HCl [Ultram -] 50 mg PO Q6H PRN 04/16/17 Carbidopa/Levodopa *Cr* 25/100 [Sinemet *Cr* 25/100 -] 1 combo PO TIDCM #90 tab 04/20/17 Labetalol HCl [Normodyne -] 100 mg PO BID #60 tablet 04/20/17
[2017-04-20] MEDS: amLODIPine BESYLATE 5 MG TABLET (FP) PO SCH (09:18)
[2017-04-20] MEDS: LABETALOL HCL 100 MG TABLET (FP) PO SCH (09:18)
[2017-04-20] MEDS: ENOXAPARIN NA (PORCINE) 40 MG/0.4 ML DISP.SYRIN SQ SCH (09:18)
[2017-04-20] MEDS: ACETAMINOPHEN 500 MG TABLET (FP) PO PRN (09:22)
[2017-04-20] MEDS: PREDNISONE PO SCH (09:30)
--- NOTE | 2017-04-20 09:47 | PN ---
Progress Note (short form) - Note Progress Note: Pt seen and examined. She has a right proximal humerus fracture. She is doing well. Less pain, better ROM of the RUE, better function. Plan: she can be DC'd from an ortho pov, then f/u as an out pt in 7-10 days for a f/u xray needs a sling
[2017-04-20 10:54] VITALS: BP 142/76; PULSE 85; TEMP 98.6
== END 2017-04-20 11:33 | disposition home or self-care (01) | DRG 312 ==
LOC: JER 13:05 → JERBED 17:16 → J4S 23:18
PROVIDERS: ADMIT Internal Medicine; ATTEND Internal Medicine
DX: I95.1 Orthostatic hypotension (principal); C34.90 Malignant neoplasm of unspecified part of unspecified bronchus or lung; J84.9 Interstitial pulmonary disease, unspecified; R11.0 Nausea; R51 Headache; E86.0 Dehydration; G20 Parkinson's disease; I10 Essential (primary) hypertension; Z85.3 Personal history of malignant neoplasm of breast; Z86.73 Personal history of transient ischemic attack (TIA), and cerebral infarction without residual deficits; J44.9 Chronic obstructive pulmonary disease, unspecified; M35.3 Polymyalgia rheumatica; Z91.81 History of falling; S42.201D Unspecified fracture of upper end of right humerus, subsequent encounter for fracture with routine healing; S50.11XD Contusion of right forearm, subsequent encounter; S70.11XD Contusion of right thigh, subsequent encounter; W01.0XXD Fall on same level from slipping, tripping and stumbling without subsequent striking against object, subsequent encounter
CPT/HCPCS: 36415; 70450-TC; 80053; 81003; 84484; 85025; 93005; 93010; 93306-TC; 93880-TC; 97116-GP; 97161-GP; 99285-25

== ENCOUNTER 2017-04-25 12:13 | Inpatient (IN) | payer OTHER, MEDICARE ==
--- NOTE | 2017-04-25 12:40 | PDOC ---
History of Present Illness <Roddy Dempsey - Last Filed: 04/25/17 16:22> - General History Source: Patient Exam Limitations: No Limitations - History of Present Illness Initial Comments: 04/25/17 13:25 Patient is a 76 year old female with h/o temporal arteritis (diagnosed 3 yo ago) , polymyalgia rheumatica, Parkinsons disease HTN, breast Ca, lung Ca, gastritis and pancreatitis who presents to the ED sent in by her fact checker for vision changes and headache. She reports intermittent headache localized to the bilateral temples with associated left eye vision changes she describes as half of the eye blackness. Patient states that she was initially diagnosed with polymyalgia rheumatica and was started on prednisone 3 year ago and is currently being tapered. Patient notes that after taking second dose of prednisone she was able to receive mild alleviation of her headache. She denies nausea or vomiting. She denies any recent falls, states that her last fall was on 04/16 which she was evaluated at [facility] s/p syncopal episode and had a negative CT finding. ALL - morphine Credit Control Manager - Dr. Pugh PCP - Dr. Alvarez <Ev Ansari - Last Filed: 04/25/17 16:56> - General Chief Complaint: Headache Stated Complaint: HEADACHE, BLURRY VISION Time Seen by Provider: 04/25/17 12:40 Past History - Past Medical History Anemia: Yes Asthma: No Cancer: Yes (BREAST) Cardiac Disorders: No CVA: Yes (tia) COPD: Yes (chronic hemoptysis) CHF: No Dementia: No Diabetes: No GI Disorders: Yes (gastritis, pancreatitis) Disorders: No HTN: Yes Hypercholesterolemia: No Liver Disease: No Psychiatric Problems: No Suicide Attempt (Hx): No Seizures: No Thyroid Disease: No Other medical history: tremors - Surgical History Abdominal Surgery: Yes (stent placement pancreas) Appendectomy: Yes Cholecystectomy: No Orthopedic Surgery: No - Immunization History Immunization Up to Date: Yes - Psycho/Social/Smoking Cessation Hx Anxiety: No Suicidal Ideation: No Smoking Status: No Smoking History: Never smoked Have you smoked in the past 12 months: No Number of Cigarettes Smoked Daily: 0 Information on smoking cessation initiated: No Hx Alcohol Use: No Drug/Substance Use Hx: No Substance Use Type: None Hx Substance Use Treatment: No <Roddy Dempsey - Last Filed: 04/25/17 16:22> <Kay Ansariyna - Last Filed: 04/25/17 16:56> - Past Medical History Allergies/Adverse Reactions: Allergies Allergy/AdvReac Type Severity Reaction Status Date / Time morphine AdvReac Mild N/V Verified 04/25/17 12:21 Home Medications: Ambulatory Orders Amlodipine Besylate [Norvasc -] 5 mg PO DAILY 10/15/15 Prednisone [Deltasone -] 7 mg PO DAILY 04/14/16 Acetaminophen [Tylenol .Extra-Strength -] 500 mg PO Q8H #36 tablet 04/08/17 Carbidopa/Levodopa *Cr* 25/100 [Sinemet *Cr* 25/100 -] 1 combo PO TIDCM #90 tab 04/20/17 Labetalol HCl [Normodyne -] 100 mg PO BID #60 tablet 04/20/17 *Physical Exam - Vital Signs Last Vital Signs Temp Pulse Resp BP Pulse Ox 98 F 81 19 146/77 98 04/25/17 12:19 04/25/17 12:19 04/25/17 12:19 04/25/17 12:19 04/25/17 12:19 <Roddy Dempsey - Last Filed: 04/25/17 16:22> - Vital Signs Last Vital Signs Temp Pulse Resp BP Pulse Ox 98 F 81 19 146/77 98 04/25/17 12:19 04/25/17 12:19 04/25/17 12:19 04/25/17 12:19 04/25/17 12:19 - Physical Exam Comments: 04/25/17 13:26 GENERAL: The patient is awake, alert, and fully oriented, in no acute distress. HEAD:+left scalp tenderness. Normal with no signs of trauma. EYES: Pupils equal, round and reactive to light, extraocular movements intact, sclera anicteric, conjunctiva clear with no pallor. ENT: Ears normal, nares patent, oropharynx clear without exudates. Moist mucous membranes. NECK: Normal range of motion, supple without lymphadenopathy, JVD, or masses. LUNGS: Breath sounds equal, clear to auscultation bilaterally. No wheeze/ crackles. HEART: Regular rate and rhythm, normal S1 and S2 without murmur or rub. ABDOMEN: Soft/nontender/nondistended. BS wnl. No guarding or rebound. No palpable masses. No hepatosplenomegaly. EXTREMITIES: Normal range of motion, no edema. No clubbing or cyanosis. No cords, erythema, or tenderness. NEUROLOGICAL: +resting jaw and bilateral upper extremity tremors. Cranial nerves II through XII grossly intact. Normal speech. PSYCH: Normal mood, normal affect. SKIN: Warm, Dry, normal turgor, no rashes or lesions noted. <Ev Ansari - Last Filed: 04/25/17 16:56> Heart Score/ECG Review #1 04/25/17 16:56 Sinus at 81 LVH QTC normal Inferior and septal Q waves No acute ST changes <Ev Ansari - Last Filed: 04/25/17 16:56> ED Treatment Course - LABORATORY CBC & Chemistry Diagram: 04/25/17 13:00 04/25/17 13:00 <Roddy Dempsey - Last Filed: 04/25/17 16:22> - LABORATORY CBC & Chemistry Diagram: 04/25/17 13:00 04/25/17 13:00 - ADDITIONAL ORDERS Additional order review: 04/25/17 13:00 RBC 3.83 MCV 87.7 MCHC 32.1 RDW 15.3 MPV 6.6 L Neutrophils % 82.9 H D Lymphocytes % 9.0 D Monocytes % 7.7 Eosinophils % 0.1 D Basophils % 0.3 <Ev Ansari - Last Filed: 04/25/17 16:56> Medical Decision Making - Medical Decision Making 04/25/17 13:01 76y/o F h/o PMR and diagnosed temporal arteritis diagnosed years ago on steroids daily, recently tapered to 8mg p/w onset of L temporal headache yesterday with vision changes similar to past TA, so she took an additional dose of her prednisone, called her fact checker Dr. Pugh, and was referred to the ED. TEJEDA stightly improved but persistent, vision still not back to baseline. VS as noted alert, fluent speech, pleasant woman with baseline resting tremor + L scalp ttp, EOMI, gross visual acuity intact, 20/70 on L 76y/o F with h/o PMR/temporal arteritis p/w L scapular headache and L vision change yesterday, now improving. Case discussed with Dr. Pugh, who knows the patient well. Apparently patient has been having these exacerbations recently, previous ESR wnl (45, 03/28/17) and CRP nl, so steroid doses were not increased. Recommends checking levels today before giving treatment dose steroids. labs including esr/crp ct head consider iv steroids pending results dispo accordingly 04/25/17 15:52 ESR now 75, elevated compared to prior 45. Will d/w Dr. Pugh regarding increasing steroid treatment in light of this finding. CT otherwise unchanged, labs otherwise wnl, CRP at baseline 1.6. 04/25/17 15:56 D/W Dr. Pugh, recommends IV therapeutic dosing of solumedrol 80mg. Will admit for further management and ophtho eval. 04/25/17 16:22 Accepted for inpt med/surg by Dr. Romero. <Roddy Dempsey - Last Filed: 04/25/17 16:22> - Medical Decision Making 04/25/17 13:27 A call was placed to Dr. Pugh at 1:06 PM Case was discussed with Dr. Pugh at 1:13 PM <Ev Ansari - Last Filed: 04/25/17 16:56> *DC/Admit/Observation/Transfer - Discharge Dispostion Admit: Yes <Roddy Dempsey - Last Filed: 04/25/17 16:22> - Attestations Scribe Attestion: 04/25/17 13:26 Documentation prepared by KESHA Hart, acting as medical anthropology director for Roddy Dempsey MD. <Ev Ansari - Last Filed: 04/25/17 16:56> Diagnosis at time of Disposition: Polymyalgia rheumatica, Temporal arteritis Headache Qualifiers: Headache type: unspecified Headache chronicity pattern: acute headache Intractability: not intractable Qualified Code(s): R51 - Headache - Discharge Dispostion Condition at time of disposition: Fair - Referrals Referrals: Raysa Davis MD [Primary Care Provider] -
[2017-04-25 13:12] LABS: BASOPHIL 0.3 % (0-2.0); EOSINOPHIL 0.1 % (0-4.5); MCH 28.1 pg (25.7-33.7); MCHC 32.1 g/dl (32.0-36.0); MEAN CELL VOLUME 87.7 fl (80-96); MEAN PLT VOLUME 6.6 fl (7.5-11.1); NEUTROPHILS 82.9 % (42.8-82.8); PLATELET COUNT 366 K/MM3 (134-434); RDW 15.3 % (11.6-15.6); WHITE BLOOD COUNT 5.8 K/mm3 (4.0-10.0)
[2017-04-25 13:27] LABS: INR 1.04 (0.82-1.09); PROTHROMBIN TIME (PATIENT) 11.4 SEC (9.98-11.88)
[2017-04-25 13:29] LABS: ACTIVATED PTT 25.4 SECONDS (26.9-34.4)
[2017-04-25 14:43] LABS: ALBUMIN 3.3 g/dl (3.4-5.0); ANION GAP 12 (8-16); C-REACTIVE PROTEIN 1.6 MG/DL (0.00-0.3); CALCIUM 9.3 mg/dL (8.5-10.1); CO2 26 mmol/L (21-32); CREATININE 1.2 mg/dL (0.55-1.02); GLUCOSE,RANDOM 153 mg/dL (74-106); SGOT/AST 28 U/L (15-37); SGPT/ALT 30 U/L (12-78); TOT PROT 7.4 g/dl (6.4-8.2)
[2017-04-25 14:48] LABS: ALK PHOS 133 U/L (45-117); BILIRUBIN,TOTAL 0.4 mg/dL (0.2-1.0)
[2017-04-25 15:26] LABS: ERYTHROCYTE SEDIMENTATION RATE 75 mm/hr (0-30)
[2017-04-25] MEDS ORDERED: methylPREDNISolone NA SUCC 125 MG/2 ML VIAL IVPB ONE ×2 (15:55)
[2017-04-25 17:50] VITALS: BMI 21.4
[2017-04-25] MEDS: ACETAMINOPHEN 500 MG TABLET (FP) PO PRN (21:07)
[2017-04-25] MEDS ORDERED: LABETALOL HCL 100 MG TABLET (FP) PO SCH (22:00)
[2017-04-26] MEDS: ACETAMINOPHEN 500 MG TABLET (FP) PO PRN (05:04)
[2017-04-26] MEDS ORDERED: PT OWN MED DRAWER 7, Y5N ONE (06:47)
[2017-04-26] MEDS: amLODIPine BESYLATE 5 MG TABLET (FP) PO SCH (06:49)
[2017-04-26] MEDS: LABETALOL HCL 100 MG TABLET (FP) PO SCH ×2 (06:50→22:01)
--- NOTE | 2017-04-26 08:57 | HP ---
Admitting History and Physical - Primary Care Physician PCP: Raysa Davis - Admission Chief Complaint: headache and transient visual field deficit History of Present Illness: came to er yesterday with c/o left sided temporal headache and also noted transient left eye lateral visual field deficit. in er hypertensive, but visual field deficit resolved -according to patient after the steroid administration. now still has left sided TEJEDA and blurry vision without deficit. 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 temporal artery biopsy on was not consistent with arteritis.) - Past Surgical History Past Surgical History: Yes: Appendectomy (at age 18), Hernia Repair (L inguinal 1983) Additional Past Surgical History: left breast lumpectomy - Smoking History Smoking history: Never smoked Have you smoked in the past 12 months: No Aproximately how many cigarettes per day: 0 - Alcohol/Substance Use Hx Alcohol Use: No - Social History ADL: Independent History of Recent Travel: No Home Medications - Allergies Allergies/Adverse Reactions: Allergies Allergy/AdvReac Type Severity Reaction Status Date / Time morphine AdvReac Mild N/V Verified 04/25/17 12:21 - Home Medications Home Medications: Ambulatory Orders Amlodipine Besylate [Norvasc -] 5 mg PO DAILY 10/15/15 Prednisone [Deltasone -] 7 mg PO DAILY 04/14/16 Acetaminophen [Tylenol .Extra-Strength -] 500 mg PO Q8H #36 tablet 04/08/17 Carbidopa/Levodopa *Cr* 25/100 [Sinemet *Cr* 25/100 -] 1 combo PO TIDCM #90 tab 04/20/17 Labetalol HCl [Normodyne -] 100 mg PO BID #60 tablet 04/20/17 Family Disease History - Family Disease History Family Disease History: Other: Father ( of CVA in 90s, HTN), Brother (HTN, prostate ca), Sister (HTN), Daughter Other Family History: ovarian ca. thyroid ca. Review of Systems - Review of Systems Eyes: reports: Blurred Vision Neurological: reports: Headache Physical Examination Vital Signs: Vital Signs Temperature 97.9 F 04/26/17 05:18 Pulse Rate 92 H 04/26/17 05:18 Respiratory Rate 92 H 04/26/17 05:37 Blood Pressure 155/96 04/26/17 05:37 O2 Sat by Pulse Oximetry (%) 94 L 04/25/17 17:22 Constitutional: Yes: No Distress, Calm Eyes: Yes: Conjunctiva Clear. No: Diplopia HENT: Yes: Atraumatic, Normocephalic Neck: Yes: Trachea Midline Cardiovascular: Yes: Regular Rate and Rhythm Respiratory: Yes: CTA Bilaterally Gastrointestinal: Yes: Normal Bowel Sounds, Soft Musculoskeletal: Yes: Other (right humerus fracture with resolving hematoma) Edema: No Peripheral Pulses WNL: Yes Neurological: Yes: Tremors (resting and intentional), Unsteady Gait, Other (no focal deficit) Imaging - Results Cat Scan: Report Reviewed Problem List - Problems (1) Headache Code(s): R51 - HEADACHE Qualifiers: Headache type: unspecified Headache chronicity pattern: acute headache Intractability: not intractable Qualified Code(s): R51 - Headache (2) History of polymyalgia rheumatica Code(s): Z87.39 - PERSONAL HISTORY OF DISEASES OF THE MS SYS AND CONN TISS (3) ILD (interstitial lung disease) Code(s): J84.9 - INTERSTITIAL PULMONARY DISEASE, UNSPECIFIED (4) Polymyalgia rheumatica Code(s): M35.3 - POLYMYALGIA RHEUMATICA (5) COPD (chronic obstructive pulmonary disease) Code(s): J44.9 - CHRONIC OBSTRUCTIVE PULMONARY DISEASE, UNSPECIFIED Qualifiers : COPD type: unspecified COPD Qualified Code(s): J44.9 - Chronic obstructive pulmonary disease, unspecified (6) Hypertension Code(s): I10 - ESSENTIAL (PRIMARY) HYPERTENSION Qualifiers: Hypertension type: essential hypertension Qualified Code(s): I10 - Essential (primary) hypertension (7) Poorly controlled blood pressure Code(s): I99.8 - OTHER DISORDER OF CIRCULATORY SYSTEM Assessment/Plan with elevated ESR, temporal TEJEDA and visual deficit r/o temporal arteritis, high dose steroids until rheumatology and neuro eval requested vascular consult if biopsy is needed MRI brain r/o TIA
[2017-04-26] MEDS ORDERED: ALPRAZolam 0.25 MG TABLET PO SCH (09:11)
[2017-04-26] MEDS: methylPREDNISolone NA SUCC 40 MG/1 ML VIAL IVPB SCH (09:34)
[2017-04-26] MEDS: PANTOPRAZOLE 40 MG TABLET (FP) PO SCH (09:34)
[2017-04-26] MEDS ORDERED: amLODIPine BESYLATE 5 MG TABLET (FP) PO SCH (10:00)
--- NOTE | 2017-04-26 11:09 | EKG ---
Test Reason : Blood Pressure : / mmHG Vent. Rate : 081 BPM Atrial Rate : 081 BPM P-R Int : 162 ms QRS Dur : 094 ms QT Int : 380 ms P-R-T Axes : 059 -23 060 degrees QTc Int : 441 ms NORMAL SINUS RHYTHM POSSIBLE LEFT ATRIAL ENLARGEMENT LEFT VENTRICULAR HYPERTROPHY INFERIOR INFARCT (CITED ON OR BEFORE 04-MAY-2012) ANTEROSEPTAL INFARCT , AGE UNDETERMINED ABNORMAL ECG WHEN COMPARED WITH ECG OF 16-APR-2017 13:37, NO SIGNIFICANT CHANGE WAS FOUND Confirmed by JULIÁN LEON, LESLIE ([id number]) on 04/26/2017 11:08:34 AM Referred By: Confirmed By:LESLIE GALLEGO MD
[2017-04-26] MEDS ORDERED: ALPRAZolam 0.25 MG TABLET PO ONE (14:45)
--- NOTE | 2017-04-26 17:22 | CONSULT ---
Consult Consult Specialty:: Rheumatology - History of Present Illness History of Present Illness: 76 year old female, with a significant past medical history of anemia, breast CA , COPD, HTN, pancreatitis, fibromyalgia and chronic headaches admitted with transient hemianopia in the left eye and MRI findings incicative of acute infarct. Ruleout temporal arteritis. HPI On 10/15/15 the patient was admitted with a 4 month history of headaches, blurry vision and fatigue. She had been taking Prednisone 5 mg.d, She had atemporal artery biopsy that was reported as negative for temporal arteritis. On 04/16/17 she was admitted after she had a syncope and fracture of the right humerus. In the present visit the patient reports she has been having chronic severe headaches for the last year, mainly localized to the occipital region. Yesterday she developed sudden loss of vision in the nasal field of the left eye , that resolved after 3 hours. She denies change in headaches and denies joint pain. On admission she was started on Solumedrol 60 mg IV daily. MRI reported with small acute right occipital /temporal cortical infarct and small chroinic left cerebelar infarct. Other changes (mild volume loss with multiple foci of small vessel infarction in the periventricular white matter and brainstem) unchanged when compared with previous study. Laboratory work-up revealed ESR 75 and CRP 1.6. Creatinine 1.2. 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 temporal artery biopsy on was not consistent with arteritis.) - Past Surgical History Past Surgical History: Yes: Appendectomy (at age 18), Hernia Repair (L inguinal 1983) - Alcohol/Substance Use Hx Alcohol Use: No - Smoking History Smoking history: Never smoked Have you smoked in the past 12 months: No Aproximately how many cigarettes per day: 0 - Social History ADL: Independent History of Recent Travel: No Home Medications - Allergies Allergies/Adverse Reactions: Allergies Allergy/AdvReac Type Severity Reaction Status Date / Time morphine AdvReac Mild N/V Verified 04/25/17 12:21 - Home Medications Home Medications: Ambulatory Orders Amlodipine Besylate [Norvasc -] 5 mg PO DAILY 10/15/15 Prednisone [Deltasone -] 7 mg PO DAILY 04/14/16 Acetaminophen [Tylenol .Extra-Strength -] 500 mg PO Q8H #36 tablet 04/08/17 Carbidopa/Levodopa *Cr* 25/100 [Sinemet *Cr* 25/100 -] 1 combo PO TIDCM #90 tab 04/20/17 Labetalol HCl [Normodyne -] 100 mg PO BID #60 tablet 04/20/17 Family Disease History - Family Disease History Family Disease History: Other: Father ( of CVA in 90s, HTN), Brother (HTN, prostate ca), Sister (HTN), Daughter Other Family History: ovarian ca. thyroid ca. Review of Systems - Review of Systems Constitutional: reports: Malaise Eyes: reports: Other HENT: reports: No Symptoms Neck: reports: No Symptoms Cardiovascular: reports: No Symptoms Respiratory: reports: No Symptoms Gastrointestinal: reports: No Symptoms Musculoskeletal: reports: No Symptoms Physical Exam Vital Signs: Vital Signs Temperature 98.4 F 04/26/17 14:14 Pulse Rate 89 04/26/17 14:14 Respiratory Rate 16 04/26/17 14:14 Blood Pressure 147/79 04/26/17 14:14 O2 Sat by Pulse Oximetry (%) 94 L 04/25/17 17:22 Constitutional: Yes: No Distress Eyes: Yes: WNL HENT: Yes: WNL Neck: Yes: WNL Cardiovascular: Yes: WNL Respiratory: Yes: WNL Gastrointestinal: Yes: WNL Musculoskeletal: Yes: Other (Temporal arteries not tender and normal in pulsation and consistency. Tenderness in sylvester right arm related to recent fracture. No active joints.) Labs: Laboratory Tests 04/25/17 04/25/17 13:00 13:00 WBC 5.8 RBC 3.83 Hgb 10.8 Hct 33.6 MCV 87.7 MCH 28.1 MCHC 32.1 RDW 15.3 Plt Count 366 D MPV 6.6 L Neutrophils % 82.9 H D Lymphocytes % 9.0 D Monocytes % 7.7 Eosinophils % 0.1 D Basophils % 0.3 ESR 75 H Sodium 140 Potassium 3.9 Chloride 102 Carbon Dioxide 26 Anion Gap 12 BUN 23 H Creatinine 1.2 H Creat Clearance w eGFR 43.56 Random Glucose 153 H D Calcium 9.3 Total Bilirubin 0.4 D AST 28 D ALT 30 D Alkaline Phosphatase 133 H D C-Reactive Protein 1.6 H D Total Protein 7.4 Albumin 3.3 L Problem List - Problems (1) CVA (cerebral vascular accident) Assessment/Plan: Acute occipital CVA. The MRI findings help to explain visual symptoms. It is unlikely that the patient has temporal arteritis. As per discussion with Dr. Noble, she will call Dr. Hampton for further management. Code(s): I63.9 - CEREBRAL INFARCTION, UNSPECIFIED
--- NOTE | 2017-04-26 19:52 | CONSULT ---
Consult - History of Present Illness History of Present Illness: 76 year old woman on whom I performed a temporal artery biopsy in 2016. She was admitted with left eye vision loss and CT showing occlipital stroke. She has chronic headache in back of head and neck pain. She has fibromyalgia and is on chronic prednisone therapy. 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 temporal artery biopsy on was not consistent with arteritis.) - Past Surgical History Past Surgical History: Yes: Appendectomy (at age 18), Hernia Repair (L inguinal 1983) - Alcohol/Substance Use Hx Alcohol Use: No - Smoking History Smoking history: Never smoked Have you smoked in the past 12 months: No Aproximately how many cigarettes per day: 0 - Social History ADL: Independent History of Recent Travel: No Home Medications - Allergies Allergies/Adverse Reactions: Allergies Allergy/AdvReac Type Severity Reaction Status Date / Time morphine AdvReac Mild N/V Verified 04/25/17 12:21 - Home Medications Home Medications: Ambulatory Orders Amlodipine Besylate [Norvasc -] 5 mg PO DAILY 10/15/15 Prednisone [Deltasone -] 7 mg PO DAILY 04/14/16 Acetaminophen [Tylenol .Extra-Strength -] 500 mg PO Q8H #36 tablet 04/08/17 Carbidopa/Levodopa *Cr* 25/100 [Sinemet *Cr* 25/100 -] 1 combo PO TIDCM #90 tab 04/20/17 Labetalol HCl [Normodyne -] 100 mg PO BID #60 tablet 04/20/17 Family Disease History - Family Disease History Family Disease History: Other: Father ( of CVA in 90s, HTN), Brother (HTN, prostate ca), Sister (HTN), Daughter Other Family History: ovarian ca. thyroid ca. Physical Exam Vital Signs: Vital Signs Temperature 98.4 F 04/26/17 14:14 Pulse Rate 89 04/26/17 14:14 Respiratory Rate 16 04/26/17 14:14 Blood Pressure 147/79 04/26/17 14:14 O2 Sat by Pulse Oximetry (%) 94 L 04/25/17 17:22 Constitutional: Yes: Anxious Eyes: Yes: EOM Intact HENT: Yes: Other (No temporal tenderness. S/p biopsy left temporal artery) Problem List - Problems (1) Temporal arteritis Assessment/Plan: While clinical picture and elevated ESR and CRP could be suggestive for temporal arteritis, I would agree with Dr. Capone that this diagnosis is unlikely. She has had a negative biopsy in the past. She has underlying PMR and fibromyalgia and this will cause the lab findings. She is already on daily steroids and so the biopsy will not greatly alter her management. The vision changes are explained by her acute stroke. Code(s): M31.6 - OTHER GIANT CELL ARTERITIS
[2017-04-26] MEDS: ASPIRIN COATED 81 MG TABLET.EC PO SCH (20:30)
[2017-04-27] MEDS: ACETAMINOPHEN 500 MG TABLET (FP) PO PRN (01:08)
[2017-04-27 08:51] LABS: BASOPHIL 0.2 % (0-2.0); EOSINOPHIL 0.1 % (0-4.5); MCH 28.4 pg (25.7-33.7); MCHC 32.5 g/dl (32.0-36.0); MEAN CELL VOLUME 87.5 fl (80-96); NEUTROPHILS 68.2 % (42.8-82.8); PLATELET COUNT 403 K/MM3 (134-434); RDW 15.2 % (11.6-15.6); WHITE BLOOD COUNT 7.4 K/mm3 (4.0-10.0)
[2017-04-27 09:24] LABS: ALBUMIN 3.2 g/dl (3.4-5.0); ALK PHOS 124 U/L (45-117); ANION GAP 10 (8-16); BILIRUBIN,TOTAL 0.8 mg/dL (0.2-1.0); C-REACTIVE PROTEIN 0.5 MG/DL (0.00-0.3); CALCIUM 9.3 mg/dL (8.5-10.1); CO2 28 mmol/L (21-32); CREATININE 1.3 mg/dL (0.55-1.02); GLUCOSE,RANDOM 94 mg/dL (74-106); SGOT/AST 28 U/L (15-37); SGPT/ALT 16 U/L (12-78); TOT PROT 7.2 g/dl (6.4-8.2)
[2017-04-27] MEDS: PANTOPRAZOLE 40 MG TABLET (FP) PO SCH (09:49)
[2017-04-27] MEDS: ASPIRIN COATED 81 MG TABLET.EC PO SCH (09:49)
[2017-04-27] MEDS: LABETALOL HCL 100 MG TABLET (FP) PO SCH ×2 (09:49→21:27)
[2017-04-27] MEDS: amLODIPine BESYLATE 5 MG TABLET (FP) PO SCH ×2 (09:49→21:27)
[2017-04-27] MEDS: methylPREDNISolone NA SUCC 40 MG/1 ML VIAL IVPB SCH (09:49)
[2017-04-27 10:11] LABS: ERYTHROCYTE SEDIMENTATION RATE 50 mm/hr (0-30)
--- NOTE | 2017-04-27 12:24 | PN ---
Progress Note (short form) - Note Progress Note: Admitted for transient vision loss and left sided temporal/orbital pain CBC, BMP 04/27/17 08:00 04/27/17 08:00 Vital Signs Period Temp Pulse Resp BP Sys/Garcia Pulse Ox Last 24 Hr 98.1 F-98.4 F 81-89 16-20 147-161/79-90 94 vision has improved, but still has some floaters S1S2 RRR Lungs cta Abd soft NT no focal neurological deficit, ambulating in hallway resting tremor present. IMp MRI with small right occipital, temporal cortical acute infarcts recent Echo and carotid last week was unremarkable. holter was requested add asa, statin, improve BP control neuro/cardiology f/up requested consults appreciated Problem List - Problems (1) Headache Code(s): R51 - HEADACHE Qualifiers: Headache type: unspecified Headache chronicity pattern: acute headache Intractability: not intractable Qualified Code(s): R51 - Headache (2) History of polymyalgia rheumatica Code(s): Z87.39 - PERSONAL HISTORY OF DISEASES OF THE MS SYS AND CONN TISS (3) ILD (interstitial lung disease) Code(s): J84.9 - INTERSTITIAL PULMONARY DISEASE, UNSPECIFIED (4) Polymyalgia rheumatica Code(s): M35.3 - POLYMYALGIA RHEUMATICA (5) COPD (chronic obstructive pulmonary disease) Code(s): J44.9 - CHRONIC OBSTRUCTIVE PULMONARY DISEASE, UNSPECIFIED Qualifiers : COPD type: unspecified COPD Qualified Code(s): J44.9 - Chronic obstructive pulmonary disease, unspecified (6) Hypertension Code(s): I10 - ESSENTIAL (PRIMARY) HYPERTENSION Qualifiers: Hypertension type: essential hypertension Qualified Code(s): I10 - Essential (primary) hypertension (7) Poorly controlled blood pressure Code(s): I99.8 - OTHER DISORDER OF CIRCULATORY SYSTEM
--- NOTE | 2017-04-27 12:49 | CONSULT ---
Admitting History and Physical - Primary Care Physician PCP: Bozena Helton - Admission History of Present Illness: Admitted for transient vision loss and left sided temporal/orbital pain. 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 temporal artery biopsy on was not consistent with arteritis.) - Past Surgical History Past Surgical History: Yes: Appendectomy (at age 18), Hernia Repair (L inguinal 1983) Additional Past Surgical History: left breast lumpectomy - Smoking History Smoking history: Never smoked Have you smoked in the past 12 months: No Aproximately how many cigarettes per day: 0 - Alcohol/Substance Use Hx Alcohol Use: No - Social History ADL: Independent History of Recent Travel: No History - Admission Reason For Visit: TEMPORAL ARTERITIS - Diagnostics MRI: Report Reviewed (small right occipital, temporal cortical acute infarcts) - General Mental Status: Alert and Oriented, Awake and Alert, Able to Follow Commands Attention: Intact Ability to Follow Directions: Excellent Head/Neck Control: WFL - Hearing Hearing: Functional Speech Evaluation - Communication Primary Language: BRITISH Communication: Yes: Within Normal Limits Oral Expression Ability: Yes: No Impairment - Speech Production Able to Make Needs Known: Yes: WNL Intelligibility: Yes: WNL - Speech Characteristics Voice Loudness: Normal Voice Pitch: Yes: Normal Voice Phonatory-based Quality: Yes: Dysphonia (mild) Speech Pattern: Normal Speech Clarity: < 100% Nasal Resonance: Normal Articulation: Yes: Precise Rate of Speech: Intact - Language/Auditory Comprehension Follows: Yes: 1 Stage Simple Commands Observation: Able to respond to yes/no queries: Yes, Yes/No Confusion: No, Comprehends Conversational Speech: Yes - Language/Verbal Expression Able to Respond to Simple Queries: Yes: WNL Able to Communicate Wants and Needs: Yes: WNL Functional Communication Status: Yes: WNL Attention: Yes: Intact - Memory/Perception group home Memory: Yes: WNL Short Term Memory: Yes: WNL - Swallow Evaluation/Bedside Assessment Current Nutritional Intake: Regular, Thin Liquids Oral Secretions: Yes: WFL Dentition: Yes: Adequate Facial Symmetry at Rest: Symmetrical Facial Symmetry on Retraction: Symmetrical Facial Movement: Controlled Sensation: Normal Against Resistance Opening: Normal Against Resistance Closing: Normal Pucker Lips: Normal Smile: Normal Lingual Movement: Symmetric (tongue/jaw tremor) Lingual Speed of Movement: Normal Lingual Movement Strgth Against Opposition: Normal Lingual Movement Characteristics: Normal Velopharyngeal Movement: Normal Laryngeal Elevation: WFL Laryngeal Movement: Able to Palpate Rate of Intake: WFL Bolus Size: WFL Labial Seal: WFL Chewing: WFL Oral Prep Time: WFL A-P Transit: WFL Pocketing: None Timing of Swallow: WFL Coughing/Throat Clear: No Change in Voice: No Recommendations - Speech Evaluation, Impression/Plan Impression: jaw/tongue tremor, said to be baseline.Tolerating diet. Speech/ language/swallow/cognition intact. Dysphonia. MRI with small right occipital, temporal cortical acute infarcts - Dysphagia Impressions/Plan Swallowing Skills: [facility] Dysphagia Impressions: No Impairment *Silent aspiration: cannot be R/O at bedside Recommendations: Neuro Consult, Modified Barium Swallow (if cough, congestion, fever.) - Recommendations Diet Consistency: Regular Medication Administration: Whole with water Liquids: Thin Liquids
--- NOTE | 2017-04-27 20:37 | CONSULT ---
Consult - text type - Consultation Consultation Note: NEUROLOGY CONSULTATION is greatly appreciated: Events reviewed and discussed with . This 76 yo RH woman with h/o HTN, Breast CA, Lung CA, gastritis and pancreatitis was seen by me on 04/19/17 after syncope and R arm fracture. Given L-Dopa for progressive tremors which was well-tolerated, to my knowledge, but discontinued by the patient at home since the same Rx, perhaps 3 years ago, produced dizziness. Pt carries a diagnosis of Temporal arteritis and polymyalgia rheumatica since 2016 although TA biopsy was negative. Headaches improved on prednisone ( maintained on 10 mg q d x last few years). Over the last few weeks the patient has had persistent, pressing, holocranial headaches. 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 Headaches have already improved markedly. CT of head (reviewed): scattered microvascular changes. MRI of brain (reviewed): scattered white matter changes including the Right occipetal lobe. CHELI: No bruits. Cor reg. No TA Palp tenderness. NEURO: MS/Speech: Vague but probably normal CN: Full monocular and binocular visual garcia. Rhythmic jaw tremor. Motor: 4-5 cps rest tremor. B/L Cogwheel rigidity. Normal to brisk, symmetrical reflexes. No FTN Dystaxia Sensory Normal. Gait: Deferred. IMP: Parkinson's disease. Temporal Arteritis. Suggest: Taper IV steroids. Give prednisone 60 mg qd x 2 weeks, then 40 mg qd x 2 weeks then 20 mg qd while following Glucose. Neuro and rheum follow-up. Thank you very much, Lino Hampton MD
[2017-04-27] MEDS: ATORVASTATIN CA 10 MG TABLET (FP) PO SCH (21:27)
[2017-04-27] MEDS: HEPARIN NA (PORCINE) 5,000 UNITS/ML 1ML VIAL SQ SCH (21:27)
[2017-04-28] MEDS: ACETAMINOPHEN 500 MG TABLET (FP) PO PRN (06:19)
[2017-04-28] MEDS: LABETALOL HCL 100 MG TABLET (FP) PO SCH ×3 (07:55→22:14)
[2017-04-28] MEDS: amLODIPine BESYLATE 5 MG TABLET (FP) PO SCH ×2 (07:55→22:14)
[2017-04-28] MEDS: ASPIRIN COATED 81 MG TABLET.EC PO SCH (07:55)
[2017-04-28] MEDS: PANTOPRAZOLE 40 MG TABLET (FP) PO SCH (09:17)
[2017-04-28] MEDS: predniSONE 20 MG TABLET (UD) PO SCH (09:18)
[2017-04-28] MEDS: HEPARIN NA (PORCINE) 5,000 UNITS/ML 1ML VIAL SQ SCH ×2 (09:18→22:14)
--- NOTE | 2017-04-28 09:26 | PN ---
Progress Note (short form) - Note Progress Note: Admitted for transient vision loss and left sided temporal/orbital pain CBC, BMP 04/27/17 08:00 04/27/17 08:00 Vital Signs Period Temp Pulse Resp BP Sys/Garcia Pulse Ox Last 24 Hr 98.2 F-98.9 F 82-85 20-22 138-176/74-95 94 vision has improved S1S2 RRR Lungs cta Abd soft NT no focal neurological deficit, ambulating in hallway resting tremor present. IMp MRI with small right occipital, temporal cortical acute infarcts recent Echo and carotid last week was unremarkable. holter was requested add asa, statin, improve BP control ESR down to 50 neuro/cardiology f/up requested/appreciated consults appreciated awaiting holter report dc planning afterwards slow steroid taper Problem List - Problems (1) Headache Code(s): R51 - HEADACHE Qualifiers: Headache type: unspecified Headache chronicity pattern: acute headache Intractability: not intractable Qualified Code(s): R51 - Headache (2) History of polymyalgia rheumatica Code(s): Z87.39 - PERSONAL HISTORY OF DISEASES OF THE MS SYS AND CONN TISS (3) ILD (interstitial lung disease) Code(s): J84.9 - INTERSTITIAL PULMONARY DISEASE, UNSPECIFIED (4) Polymyalgia rheumatica Code(s): M35.3 - POLYMYALGIA RHEUMATICA (5) COPD (chronic obstructive pulmonary disease) Code(s): J44.9 - CHRONIC OBSTRUCTIVE PULMONARY DISEASE, UNSPECIFIED Qualifiers : COPD type: unspecified COPD Qualified Code(s): J44.9 - Chronic obstructive pulmonary disease, unspecified (6) Hypertension Code(s): I10 - ESSENTIAL (PRIMARY) HYPERTENSION Qualifiers: Hypertension type: essential hypertension Qualified Code(s): I10 - Essential (primary) hypertension (7) Poorly controlled blood pressure Code(s): I99.8 - OTHER DISORDER OF CIRCULATORY SYSTEM
[2017-04-28] MEDS ORDERED: predniSONE 20 MG TABLET (UD) PO SCH (10:00)
--- NOTE | 2017-04-28 13:18 | HOL ---
Hook-up date: 2017-04-27 09:40:00 Duration: 23:56:00 Test Indications: R/O ATRIAL FIBRILLATION Medications: 75025 QRS complexes 711 Ventricular ectopics which represent 1 % of total QRS comp. 110 Supraventricular ectopics which represent <1 % of total QRS comp. * Paced QRS complexs which represent % of total QRS comp. 63 % of Time Classified as Noise VENTRICULAR ECTOPY 701 Isolated 0 Bigeminal Cycles 5 Couplets 0 Runs 0 Beats in Runs * Beats LONGEST at * BPM at :: -- * Beats FASTEST at * BPM at :: -- SUPRAVENTRICULAR ECTOPY 91 Isolated 2 Couplets 2 Runs 15 Beats in Runs 12 Beats LONGEST at 161 BPM at 14:06:53 2017-04-27 12 Beats FASTEST at 161 BPM at 14:06:53 2017-04-27 HEART RATES 65 MIN at 07:04:04 2017-04-28 84 AVG 114 MAX at 15:17:55 2017-04-27 LONGEST RR 1.256 secs at 23:33:43 2017-04-27 The underlying rhythm was normal sinus ranging from 65 to 114bpm. One short self limited run of paroxysmal supraventricular tachycardia lasting 12 beats at a rate of 161bpm. Frequent unifocal VPCs with rare ventricular couplets. No significant pauses. No diary entries. Confirmed by ANAHY DOHERTY MD ([id number]) on 04/28/2017 1:17:27 PM Referred By: Overread By: ANAHY DOHERTY MD
[2017-04-28] MEDS: ATORVASTATIN CA 10 MG TABLET (FP) PO SCH (22:14)
[2017-04-29] MEDS: LABETALOL HCL 100 MG TABLET (FP) PO SCH (06:03)
--- NOTE | 2017-04-29 07:47 | DS ---
Physical Examination Vital Signs: Vital Signs Temperature 97.8 F 04/29/17 05:59 Pulse Rate 78 04/29/17 05:59 Respiratory Rate 18 04/29/17 05:59 Blood Pressure 156/78 04/29/17 05:59 O2 Sat by Pulse Oximetry (%) 96 04/28/17 21:00 Constitutional: Yes: No Distress, Calm Eyes: Yes: Conjunctiva Clear Neck: Yes: Trachea Midline Cardiovascular: Yes: Regular Rate and Rhythm Respiratory: Yes: CTA Bilaterally Gastrointestinal: Yes: Normal Bowel Sounds, Soft Peripheral Pulses WNL: Yes Neurological: Yes: Tremors Labs: CBC, BMP 04/27/17 08:00 04/27/17 08:00 Discharge Summary Reason For Visit: TEMPORAL ARTERITIS Current Active Problems Anemia due to blood loss, chronic (Acute) CVA (cerebral vascular accident) (Acute) Generalized weakness (Acute) Headache (Acute) History of polymyalgia rheumatica (Acute) ILD (interstitial lung disease) (Acute) Orthostatic hypotension (Acute) Polymyalgia rheumatica (Acute) Pulmonary hypertension (Acute) Seizure (Acute) Temporal arteritis (Acute) Vision disorder (Acute) Hospital Course: Admitted for transient left visual loss and headache-improved on high dose steroid. However MRI brain showed right tremporooccipital acute small CVAs recent echo and carotid US reviewed 24 H holter shows no Afib. seen and examined by neuro and rheum. h/o PMR, no direct evidence of temporal arteritis other than elevated ESR and clinical improvment on steroids. Will taper steroids slowly, but also continue asa, statin and BP meds for stroke Condition: Fair - Instructions Diet, Activity, Other Instructions: f/up with next week and in 2 weeks Referrals: Raysa Davis MD [Primary Care Provider] - - Home Medications Comprehensive Discharge Medication List: Ambulatory Orders Active Medications Amlodipine Besylate (Norvasc -) 5 mg PO BID [facility] Last Admin: 04/28/17 22:14 Dose: 5 mg Aspirin (Ecotrin -) 81 mg PO DAILY [facility] Last Admin: 04/28/17 07:55 Dose: 81 mg Atorvastatin Calcium (Lipitor -) 10 mg PO HS [facility] Last Admin: 04/28/17 22:14 Dose: 10 mg Carbidopa/Levodopa (Sinemet *Cr* 25/100 -) 1 combo PO TIDCM [facility] Last Admin: 04/28/17 17:24 Dose: 1 combo Labetalol HCl (Normodyne -) 100 mg PO TID [facility] Last Admin: 04/29/17 06:03 Dose: 100 mg Pantoprazole Sodium (Protonix -) 40 mg PO DAILY [facility] Last Admin: 04/28/17 09:17 Dose: 40 mg Prednisone (Deltasone -) 60 mg PO DAILY [facility] Last Admin: 04/28/17 09:18 Dose: 60 mg taper to 40 mg daily on 05.02, then 20 mg daily on .2
[2017-04-29] MEDS: PANTOPRAZOLE 40 MG TABLET (FP) PO SCH (09:01)
[2017-04-29] MEDS: amLODIPine BESYLATE 5 MG TABLET (FP) PO SCH (09:02)
[2017-04-29] MEDS: predniSONE 20 MG TABLET (UD) PO SCH (09:02)
[2017-04-29] MEDS: HEPARIN NA (PORCINE) 5,000 UNITS/ML 1ML VIAL SQ SCH (09:03)
[2017-04-29] MEDS: ASPIRIN COATED 81 MG TABLET.EC PO SCH (09:03)
[2017-04-29 09:52] VITALS: BP 143/80; PULSE 74; TEMP 98
--- NOTE | 2017-04-29 19:23 | CONS ---
DATE OF CONSULTATION: 04/28/2017 TIME OF CONSULTATION: 2:45 p.m. REQUESTING PHYSICIAN: Bozena Helton MD CHIEF COMPLAINT: 1. History of occipital headaches for 3 days prior to admission. 2. History of sudden and partial loss of vision involving the left eye. HISTORY: A 76-year-old [place] female with a history of hypertension, hypertensive cardiovascular disease diagnosed with temporal arteritis and a history of fibromyalgia. The patient is also known to have chronic obstructive pulmonary disease/interstitial lung disease, divisum status post stents, history of recurring pancreatitis, history of superior mesenteric artery stenosis, celiac artery stenosis, history of chronic headaches. The patient states that prior to admission she developed severe occipital headaches, which radiated to the temporal areas for approximately 3 days. On the day of admission, she developed sudden and partial loss of vision involving the left eye. No focal weakness was reported. There was no history of dizziness or loss of consciousness. There was no history of speech disturbances. The patient was diagnosed to have right occipital stroke. No history of chest pain or discomfort either at rest or with exertion. Has minimal exertional dyspnea. No paroxysmal or nocturnal dyspnea, or orthopnea reported. No history of palpitations, lightheadedness, dizziness, presyncope, or syncope. PAST MEDICAL HISTORY: As mentioned in the history of present illness. PAST SURGICAL HISTORY: 1. Status post appendectomy. 2. Status post left inguinal hernia repair. SOCIAL HISTORY: She is . Has children. She is a nonsmoker. Denies excessive use of alcohol or caffeine. FAMILY HISTORY: Her daughter has had fallopian tube carcinoma. Father in his 80s. Mother in her 40s appropriately related to an infection. Has 2 brothers and 2 sisters who apparently are healthy. ALLERGIES: Intolerant to MORPHINE. CURRENT MEDICATIONS: 1. Prednisone 60 mg p.o. daily. 2. Labetalol 100 mg p.o. t.i.d. 3. Amlodipine 5 mg p.o. t.i.d. 4. Carbidopa/levodopa 25/100 mg p.o. t.i.d. 5. Atorvastatin 10 mg p.o. daily. 6. Aspirin 81 mg p.o. daily. 7. Protonix 40 mg p.o. daily. REVIEW OF SYSTEMS: Constitutional: No history of chills, fever, or night sweats reported. No history of unintentional weight loss. HEENT: See history of present illness. History of partial loss of vision involving the left eye. No history of diplopia. History of intermittent floaters in the left eye. No history of hoarseness or epistaxis. No history of tinnitus or deafness reported. Cardiovascular: No history of recent chest pain or discomfort. No history of rheumatic fever. Respiratory: See history of present illness. No history of recent cough or expectoration. Gastrointestinal: History of pancreas divisum. No history of recent abdominal pain or discomfort. No history of nausea, vomiting, melena, or hematemesis. No history of change in bowel habits reported. History of diverticulosis. Central Nervous System: See history of present illness. Musculoskeletal: Denies having any arthralgias or myalgias. Gastrointestinal: No history of dysuria, frequency, or hematuria. Endocrine: No history of polyuria or polydipsia. No history of intolerance to cold or warm weather. Hematological: No history of ecchymosis, bleeding, or anemia. PHYSICAL EXAMINATION: General: A 76-year-old female who is in no acute distress. No pallor, cyanosis, clubbing, or jaundice. Vital Signs: Blood pressure at 8 a.m. is 174/92 mmHg, currently 154/84 mmHg, pulse 82 beats per minute and regular, afebrile, respirations 20 per minute, weight 124.9 pounds. Neck: Supple. No jugular venous distention. Carotids are 2+. Upstrokes are normal. No bruits are heard, and no thyromegaly is present. Heart: PMI is in the 5th intercostal space. No heaves or thrills. S1, S2 are normal. Nonejection systolic click is heard along the left sternal border in the apex. No murmur or gallops are appreciated. Lungs: Fine crepitations at the right base decreased with cough. No expiratory wheezing or extraneous sounds are heard. Chest: Normal AP diameter. Expansion is symmetrical. Abdomen: Soft, slightly protuberant, and nontender. No hepatosplenomegaly or palpable masses are felt. There are no hernias palpated. Bowel sounds are present. No bruits are heard. Extremities: No calf tenderness or dependent edema. Pulses are equal. Dorsalis pedis and posterior tibial pulses are 1+. LABORATORY DATA: April 27, 2017 CBC: WBC count 7400, hemoglobin 11.3 g/dL, platelet count 403,000, monocytes 16.2%. ESR was elevated at 50 mg mm the first hour. Chemistry April 27, 2017: Sodium 141, potassium 3.7, chloride 103, CO2 is 28 mmol/L, BUN 38, creatinine 1.3 mg/dL, glucose 94 mg/dL, alkaline phosphatase slightly elevated at 1214, C-reactive protein elevated initially at 1.6 and on April 27 was 0.5. ECG dated April 25, 2017: Normal sinus rhythm, poor R-wave progression V1-V3, possibility of anteroseptal wall myocardial infarction cannot be excluded, left axis deviation, minor ST changes. Holter monitor dated April 27. Conclusion: Underlying rhythm was normal saline ranging from 65-114 beats per minute. One short, self-limited run of paroxysmal supraventricular tachycardia lasting 12 beats at a rate of 161 beats per minute. Frequent unifocal with rare ventricular couplets. No significant pauses. No diary entries. MRI of the brain April 26, 2017. Impression: Small, acute right occipital/temporal cortical infarcts are noted. The remainder of the exam appears unchanged in comparison to previous MRI study of March 20, 2015. Punctate, bilateral, frontal, subcortical, chronic infarcts. Small, left cerebellar infarct. IMPRESSION: 1. Hypertension, hypertensive cardiovascular disease. 2. Acute right occipital/temporal infarct. 3. Partial loss of vision secondary to number 2. 4. History of chronic, right-sided tremors in association with tremors. Has been diagnosed to have Parkinsonism. 5. Pancreas divisum. 6. History of chronic obstructive pulmonary disease/interstitial lung disease. 7. Supraventricular tachycardia. 8. History of fibromyalgia. 9. History of temporal arteritis. 10. Hypercholesterolemia. RECOMMENDATIONS: 1. Consider an event monitor, which would be undertaken on an outpatient basis to exclude the possibility of atrial fibrillation. 2. Strict control of blood pressure in view of multiple strokes both recent and old. 3. Lipid profile and if LDL remains elevated, consider increase in the dose of Lipitor. 4. Risk modifications. 5. Post follow up of blood pressure. Thank you for your referral. Tierney [id number]
== END 2017-04-29 10:31 | disposition home or self-care (01) | DRG 65 ==
LOC: JER 12:13 → JERBED 16:22 → J6S 18:09
PROVIDERS: ADMIT Internal Medicine; ATTEND Internal Medicine
DX: I63.9 Cerebral infarction, unspecified (principal); J84.9 Interstitial pulmonary disease, unspecified; C34.90 Malignant neoplasm of unspecified part of unspecified bronchus or lung; M35.3 Polymyalgia rheumatica; G20 Parkinson's disease; K29.60 Other gastritis without bleeding; J44.9 Chronic obstructive pulmonary disease, unspecified; I10 Essential (primary) hypertension; D64.9 Anemia, unspecified; I11.9 Hypertensive heart disease without heart failure; M79.7 Fibromyalgia; I27.2 Other secondary pulmonary hypertension; Z85.3 Personal history of malignant neoplasm of breast
CPT/HCPCS: 36415; 70450-TC; 70551-TC; 80053; 85025; 85610; 85651; 85730; 86140; 93005; 93010; 93225; 93226; 97116-GP; 97161-GP; 99284-25; J1644

== ENCOUNTER 2017-05-16 13:12 | Emergency (ER) | payer OTHER, MEDICARE ==
[2017-05-16 13:16] VITALS: BMI 21.4
--- NOTE | 2017-05-16 13:20 | PDOC ---
History of Present Illness - General Chief Complaint: Headache Stated Complaint: HEADACHES Time Seen by Provider: 05/16/17 13:19 - History of Present Illness Initial Comments: Patient is a 76 year old female with h/o temporal arteritis (diagnosed 3 yo ago but biopsy negative), polymyalgia rheumatica, Parkinsons disease HTN, breast Ca, lung Ca, gastritis and pancreatitis who presents to the ED sent in by her hand alterations seamstress for vision changes and headache. She has had this headache and left sided visual blurriness for the past month that were better when on her high dose steroids. However, they have worsened as she has started to taper her steroids. She describes the headache as a bi-temporal throbbing with occipital pain as well. The visual symptoms are simply unclear image borders in the left eye. She did have cataract surgery on that eye last year. She hasn't seen the outpatient neurologist or origination specialist yet but her rheuamtolgist recommended she come to the ER because she was going on vacation soon to see if these symptoms were anything serious. 05/16/17 14:28 Past History - Past Medical History Allergies/Adverse Reactions: Allergies Allergy/AdvReac Type Severity Reaction Status Date / Time morphine AdvReac Mild N/V Verified 05/16/17 13:17 Home Medications: Ambulatory Orders Carbidopa/Levodopa *Cr* 25/100 [Sinemet *Cr* 25/100 -] 1 combo PO TIDCM #90 tab 04/20/17 Amlodipine Besylate [Norvasc -] 5 mg PO BID #60 tablet 04/29/17 Aspirin Coated [Ecotrin -] 81 mg PO DAILY #30 tablet 04/29/17 Atorvastatin Ca [Lipitor] 10 mg PO HS #30 tablet 04/29/17 Pantoprazole Sodium [Protonix -] 40 mg PO DAILY #30 tab 04/29/17 Labetalol HCl [Normodyne -] 200 mg PO TID 05/16/17 Prednisone [Deltasone -] 20 mg PO DAILY 05/16/17 Prednisone [Deltasone -] 60 mg PO DAILY #21 tablet 05/16/17 Anemia: Yes Asthma: No Cancer: Yes (BREAST) Cardiac Disorders: No CVA: Yes (tia) COPD: Yes (chronic hemoptysis) CHF: No Dementia: No Diabetes: No GI Disorders: Yes (gastritis, pancreatitis) Disorders: No HTN: Yes Hypercholesterolemia: No Liver Disease: No Psychiatric Problems: No Seizures: No Thyroid Disease: No Other medical history: Right Shoulder Fracture - Surgical History Abdominal Surgery: Yes (stent placement pancreas) Appendectomy: Yes Cholecystectomy: No Orthopedic Surgery: No - Immunization History Immunization Up to Date: Yes - Suicide/Smoking/Psychosocial Hx Smoking Status: No Smoking History: Never smoked Have you smoked in the past 12 months: No Number of Cigarettes Smoked Daily: 0 Information on smoking cessation initiated: No Hx Alcohol Use: No Drug/Substance Use Hx: No Substance Use Type: None Hx Substance Use Treatment: No Review of Systems - Review of Systems Constitutional: No: Chills, Diaphoresis, Fever, Loss of Appetite HEENTM: Yes: Blurred Vision. No: Tearing, Recent change in vision Respiratory: No: Cough, Productive cough Cardiac (ROS): No: Chest Pain, Lightheadedness, Syncope ABD/GI: No: Diarrhea, Nausea, Vomiting : No: Dysuria, Hematuria *Physical Exam - Vital Signs Last Vital Signs Temp Pulse Resp BP Pulse Ox 97.5 F L 73 18 146/81 96 05/16/17 13:14 05/16/17 13:14 05/16/17 13:14 05/16/17 13:14 05/16/17 13:14 - Physical Exam General Appearance: Yes: Nourished, Appropriately Dressed. No: Apparent Distress HEENT: positive: EOMI, TRINY, Normal Voice, Other. negative: Normal ENT Inspection (bilateral temporal tenderness) Neck: positive: Trachea midline, Normal Thyroid. negative: Tender Respiratory/Chest: positive: Lungs Clear, Normal Breath Sounds. negative: Chest Tender, Respiratory Distress, Accessory Muscle Use Cardiovascular: positive: Regular Rhythm, Regular Rate Gastrointestinal/Abdominal: positive: Normal Bowel Sounds, Flat, Soft. negative : Tender Musculoskeletal: positive: Normal Inspection Extremity: positive: Normal Inspection, Normal Range of Motion Neurologic: positive: licensed prosthetist/orthotist II-XII NML intact, Fully Oriented, Alert, Motor Strength 5/5, Other (resting tremor at baseline.) ED Treatment Course - LABORATORY CBC & Chemistry Diagram: 05/16/17 14:38 05/16/17 14:38 Medical Decision Making - Medical Decision Making 76 year old female with bilateral temporal pain and left eye blurriness. CT head negative. Spoke to her origination specialist and she will see him tomorrow. Her headache is much better after 60 of prednisone. Will send her out on 60 pred x 7 days and then she can see her neurologist and hand alterations seamstress as well. 05/16/17 16:53 *DC/Admit/Observation/Transfer Diagnosis at time of Disposition: Temporal headache - Discharge Dispostion Disposition: HOME Condition at time of disposition: Improved Admit: No - Prescriptions Prescriptions: Prednisone [Deltasone -] 60 mg PO DAILY #21 tablet - Referrals Referrals: Raysa Davis MD [Primary Care Provider] - - Patient Instructions Additional Instructions: Your head CT was negative. Please See your origination specialist tomorrow. Please make an appointment with your neurologist and hand alterations seamstress as soon as possible. We prescribed you one week of increased steroids (60 mg) afterwards you should go back onto your 20 daily steroids.
--- NOTE | 2017-05-16 14:25 | PDOC ---
Attending Attestation - HPI HPI: 05/16/17 15:25 76 yr old female, pmhx of temporal arteritis, polymyalgia rheumatica, Parkinson s disease, HTN, Breast CA, Lung CA, gastritis, and pancreatitis, who presents to the emergency room complaining of bilateral temporal headache and blurry vision in the left eye. Patient was admitted for the same complaints on . During her stay, she was given steroids and her headaches and blurry vision resolved. Since being discharged, the steroid dosage has been tapered and she is now on a dose of 20mg. Since being on this low dose, the headache has been so severe that she could not sleep last night. Allergies: Morphine Prestidigitator: Dr. Pugh [phone] PCP: Dr. Alvarez - Physicial Exam PE: 05/16/17 15:25 GENERAL: Awake, alert, and fully oriented, in no acute distress HEAD: +left temporal tenderness to palpation. No signs of trauma EYES: PERRLA, EOMI, sclera anicteric, conjunctiva clear ENT: Auricles normal inspection, hearing grossly normal, nares patent, oropharynx clear without exudates. Moist mucosa NECK: Normal ROM, supple, no lymphadenopathy, JVD, or masses LUNGS: Breath sounds equal, clear to auscultation bilaterally. No wheezes, and no crackles HEART: Regular rate and rhythm, normal S1 and S2, no murmurs, rubs or gallops ABDOMEN: Soft, nontender, normoactive bowel sounds. No guarding, no rebound. No masses EXTREMITIES: Normal range of motion, no edema. No clubbing or cyanosis. No cords, erythema, or tenderness NEUROLOGICAL: Cranial nerves II through XII grossly intact. Normal speech, normal gait SKIN: Warm, Dry, normal turgor, no rashes or lesions noted. <Maria Fernanda Medeiros - Last Filed: 05/16/17 15:25> - Resident Resident Name: Hair Gray - ED Attending Attestation I have performed the following: I have examined & evaluated the patient, The case was reviewed & discussed with the resident, I agree w/resident's findings & plan, Exceptions are as noted - Medical Decision Making 05/16/17 15:49 A portion of this note was written by my scribe, under my supervision. Vital Signs Temp Pulse Resp BP Pulse Ox 97.5 F L 73 18 146/81 96 05/16/17 13:14 05/16/17 13:14 05/16/17 13:14 05/16/17 13:14 05/16/17 13:14 76 year old F c/ pmh polymyalgia rheumatica, temporal arteritis, still under treatment for temporal arteritis for left side p/w worsening left sided TA and headache. Pt was tapered down on the prednisone to 20 mg daily. Since then, symptoms worsened. OS: 50 OD: My resident, Dr. Gray, had spoken with the patient's optho doctor. Will see the patient tomorrow. CT head demonstrates no acute findings. Will draw labs including ESR. Will increase the patient's prednisone from 20 mg to 60 mg daily to improve the symptoms. <Ren Olea - Last Filed: 05/16/17 16:00>
[2017-05-16] MEDS ORDERED: SODIUM CHLORIDE 0.9% 1000 ML INFUS.BAG IV ONE (14:33)
[2017-05-16] MEDS ORDERED: predniSONE 20 MG TABLET (UD) PO ONE (14:43)
[2017-05-16] MEDS ORDERED: ACETAMINOPHEN 1000 MG/100 ML VIAL (NON FORMULARY) IVPB ONE (14:43)
[2017-05-16 14:46] LABS: BASOPHIL 0.2 % (0-2.0); EOSINOPHIL 0.1 % (0-4.5); MEAN CELL VOLUME 87.7 fl (80-96); MEAN PLT VOLUME 6.8 fl (7.5-11.1); NEUTROPHILS 95.2 % (42.8-82.8); PLATELET COUNT 227 K/MM3 (134-434); RDW 15.6 % (11.6-15.6); WHITE BLOOD COUNT 12.9 K/mm3 (4.0-10.0)
[2017-05-16] MEDS ORDERED: ACETAMINOPHEN 325 MG TABLET (FP) ONE (14:48)
[2017-05-16] MEDS ORDERED: predniSONE 20 MG TABLET (UD) ONE (14:48)
[2017-05-16 15:12] LABS: ALBUMIN 3.3 g/dl (3.4-5.0); ANION GAP 8 (8-16); BILIRUBIN,TOTAL 0.6 mg/dL (0.2-1.0); C-REACTIVE PROTEIN 1.2 MG/DL (0.00-0.3); CALCIUM 8.7 mg/dL (8.5-10.1); CO2 28 mmol/L (21-32); CREATININE 1.1 mg/dL (0.55-1.02); GLUCOSE,RANDOM 217 mg/dL (74-106); SGOT/AST 42 U/L (15-37); SGPT/ALT 23 U/L (12-78); TOT PROT 6.8 g/dl (6.4-8.2)
[2017-05-16 15:13] LABS: ALK PHOS 139 U/L (45-117)
[2017-05-16 15:58] LABS: ERYTHROCYTE SEDIMENTATION RATE 18 mm/hr (0-30)
[2017-05-16] MEDS ORDERED: ACETAMINOPHEN 500 MG TABLET (FP) PO ONE (16:41)
[2017-05-16 17:54] VITALS: BP 163/87; PULSE 71; TEMP 97.9
== END 2017-05-16 18:53 | disposition home or self-care (01) ==
LOC: JER 13:12
DX: R51 Headache (principal); M31.5 Giant cell arteritis with polymyalgia rheumatica; I10 Essential (primary) hypertension; G20 Parkinson's disease; Z85.3 Personal history of malignant neoplasm of breast; Z85.118 Personal history of other malignant neoplasm of bronchus and lung
CPT/HCPCS: 36415; 70450-TC; 80053; 85025; 85651; 86140; 99282-25

== ENCOUNTER 2017-05-21 16:23 | Inpatient (IN) | payer OTHER, MEDICARE ==
[2017-05-21] MEDS ORDERED: SODIUM CHLORIDE 1,000 ML IV STA (16:52)
[2017-05-21] MEDS ORDERED: ALBUTEROL SO4 0.083% IH SOL 2.5 MG/3 ML VIAL.NEB. NEB ONE (16:56)
[2017-05-21] MEDS ORDERED: ALBUTEROL SO4 2.5/IPRATROPIUM 0.5 INH SOL 3 ML VIAL.NEB. NEB ONE (16:56)
--- NOTE | 2017-05-21 17:09 | PDOC ---
History of Present Illness - General History Source: Patient Exam Limitations: No Limitations - History of Present Illness Initial Comments: Pt is a 76 yo female w/PMHx of HTN, COPD, TIA, polymyalgia rheumatica, temporal arteritis, breast cancer with left lumpectomy and pancreatitis who presents for shortness of breath, which onset a week ago and worsened today. She states her shortness of breath is worse with activity. Patient has not tried any inhalers or nebulizers at home. She also complains of episodes of hemoptysis with clots for the past one week. She admits to a headache but states this is similar to her chronic headaches. She also admits to urinary frequency and foul odor to her urine, which has been going on for a few weeks. She states she has not felt feverish at home. She denies any chest pain, palpitations, leg swelling, calf pain, diaphoresis, cold symptoms, sore throat, vision changes, numbness, tingling, focal weakness, abdominal pain, nausea, vomiting, diarrhea or dysuria. 05/21/17 17:24 <Chris Virk - Last Filed: 05/21/17 18:40> <Vira Loyd - Last Filed: 05/21/17 19:06> <Lorna Babb - Last Filed: 05/21/17 20:41> - General Chief Complaint: Shortness of Breath Stated Complaint: WEAKNESS Time Seen by Provider: 05/21/17 16:38 Past History - Past Medical History Anemia: Yes Asthma: No Cancer: Yes (BREAST) Cardiac Disorders: No CVA: Yes (tia) COPD: Yes (chronic hemoptysis) CHF: No Dementia: No Diabetes: No GI Disorders: Yes (gastritis, pancreatitis) Disorders: No HTN: Yes Hypercholesterolemia: No Liver Disease: No Psychiatric Problems: No Seizures: No Thyroid Disease: No - Surgical History Abdominal Surgery: Yes (stent placement pancreas) Appendectomy: Yes Cholecystectomy: No Orthopedic Surgery: No - Immunization History Immunization Up to Date: Yes - Suicide/Smoking/Psychosocial Hx Smoking Status: No Smoking History: Never smoked Have you smoked in the past 12 months: No Number of Cigarettes Smoked Daily: 0 Hx Alcohol Use: No Drug/Substance Use Hx: No Substance Use Type: None Hx Substance Use Treatment: No <Chris Virk - Last Filed: 05/21/17 18:40> <Vira Loyd - Last Filed: 05/21/17 19:06> <Lorna Babb - Last Filed: 05/21/17 20:41> - Past Medical History Allergies/Adverse Reactions: Allergies Allergy/AdvReac Type Severity Reaction Status Date / Time morphine AdvReac Mild N/V Verified 05/16/17 13:17 Home Medications: Ambulatory Orders Carbidopa/Levodopa *Cr* 25/100 [Sinemet *Cr* 25/100 -] 1 combo PO TIDCM #90 tab 04/20/17 Amlodipine Besylate [Norvasc -] 5 mg PO BID #60 tablet 04/29/17 Aspirin Coated [Ecotrin -] 81 mg PO DAILY #30 tablet 04/29/17 Pantoprazole Sodium [Protonix -] 40 mg PO DAILY #30 tab 04/29/17 Labetalol HCl [Normodyne -] 200 mg PO TID 05/16/17 Prednisone [Deltasone -] 60 mg PO DAILY #21 tablet 05/16/17 Review of Systems - Review of Systems Able to Perform ROS?: Yes Is the patient limited [place] proficient: No Constitutional: No: Chills, Diaphoresis, Fever HEENTM: No: Blurred Vision, Double Vision, Throat Pain Respiratory: Yes: Shortness of Breath, Hemoptysis Cardiac (ROS): No: Chest Pain, Lightheadedness, Palpitations ABD/GI: No: Constipated, Diarrhea, Nausea, Rectal Bleeding, Vomiting, Abdominal cramping : Yes: Frequency. No: Dysuria Musculoskeletal: No: Symptoms Reported Integumentary: No: Symptoms Reported Neurological: Yes: Headache (chronic). No: Numbness, Tingling, Weakness Psychiatric: No: Anxiety, Depression Endocrine: No: Symptoms Reported Hematologic/Lymphatic: No: Symptoms Reported All Other Systems: Reviewed and Negative <Chris Virk - Last Filed: 05/21/17 18:40> *Physical Exam - Physical Exam Comments: 05/21/17 17:18 Pt sitting in bed, labored breathing, resting tremor HEENT: positive: EOMI, TRINY. negative: Pharyngeal Erythema, Tonsillar Exudate, Tonsillar Erythema, Nasal Congestion, Rhinorrhea Neck: positive: Supple. negative: Tender Respiratory/Chest: positive: Wheezing (bilateral). negative: Accessory Muscle Use Cardiovascular: positive: Regular Rhythm, Regular Rate. negative: Murmur Vascular Pulses: Dorsalis-Pedis (R): 2+, Doralis-Pedis (L): 2+ Gastrointestinal/Abdominal: positive: Normal Bowel Sounds, Soft. negative: Tender Musculoskeletal: positive: Normal Inspection Extremity: positive: Normal Range of Motion Integumentary: positive: Warm, Pale. negative: Diaphoresis Neurologic: positive: Fully Oriented, Alert, Motor Strength 5/5. negative: Sensory Deficit <Chris Virk - Last Filed: 05/21/17 18:40> - Vital Signs Last Vital Signs Temp Pulse Resp BP Pulse Ox 102 F H 83 32 H 134/83 91 L 05/21/17 16:25 05/21/17 16:25 05/21/17 16:25 05/21/17 16:25 05/21/17 16:25 <Vira Loyd - Last Filed: 05/21/17 19:06> - Vital Signs Last Vital Signs Temp Pulse Resp BP Pulse Ox 98.5 F 86 24 122/78 98 05/21/17 20:13 05/21/17 20:13 05/21/17 20:13 05/21/17 20:13 05/21/17 20:13 <Lorna Babb - Last Filed: 05/21/17 20:41> ED Treatment Course - LABORATORY CBC & Chemistry Diagram: 05/21/17 17:15 05/21/17 17:15 - RADIOLOGY Radiology Studies Ordered: Category Date Time Status CHEST X-RAY PORTABLE* [RAD] Stat Radiology 05/21/17 16:52 Ordered - Medications Given in the ED: ED Medications Discontinued Medications Generic Name Dose Route Start Last Admin Trade Name Dimitris PRN Reason Stop Dose Admin Albuterol Sulfate 1 amp 05/21/17 16:56 05/21/17 16:58 Ventolin 0.083% Nebulizer Soln - NEB 05/21/17 16:57 1 amp ONCE ONE Administration Albuterol/Ipratropium 1 amp 05/21/17 16:56 05/21/17 16:58 Duoneb - NEB 05/21/17 16:57 1 amp ONCE ONE Administration <Chris Virk - Last Filed: 05/21/17 18:40> - LABORATORY CBC & Chemistry Diagram: 05/21/17 17:15 05/21/17 17:15 - ADDITIONAL ORDERS Additional order review: Laboratory Results 05/21/17 05/21/17 05/21/17 17:15 17:15 17:15 PT with INR 12.30 H INR 1.12 PTT (Actin FS) 22.6 L Sodium 138 Potassium 3.4 L Chloride 102 Carbon Dioxide 26 Anion Gap 10 BUN 25 H Creatinine 1.0 Creat Clearance w eGFR 53.76 Random Glucose 145 H D Lactic Acid 0.9 Calcium 8.3 L Total Bilirubin 0.8 Direct Bilirubin AST 24 ALT 9 L D Alkaline Phosphatase 98 Creatine Kinase 24 L Troponin I 0.18 H B-Natriuretic Peptide Total Protein 6.1 L Albumin 2.5 L Lipase 05/21/17 05/21/17 17:06 17:06 PT with INR INR PTT (Actin FS) Sodium Potassium Chloride Carbon Dioxide Anion Gap BUN Creatinine Creat Clearance w eGFR Random Glucose Lactic Acid Calcium Total Bilirubin 0.7 Direct Bilirubin 0.2 AST 25 D ALT 12 D Alkaline Phosphatase 100 D Creatine Kinase Troponin I B-Natriuretic Peptide 27365.53 H Total Protein 6.1 L Albumin 2.4 L D Lipase 85 05/21/17 17:15 RBC 3.75 MCV 87.4 MCHC 32.8 RDW 15.7 H MPV 7.3 L Neutrophils % No Result Required. Lymphocytes % No Result Required. - Medications Given in the ED: ED Medications Discontinued Medications Generic Name Dose Route Start Last Admin Trade Name Freq PRN Reason Stop Dose Admin Acetaminophen 1,000 mg 05/21/17 17:55 05/21/17 17:15 Ofirmev Injection - IVPB 05/21/17 17:56 1,000 mg ONCE ONE Administration Albuterol Sulfate 1 amp 05/21/17 16:56 05/21/17 16:58 Ventolin 0.083% Nebulizer Soln - NEB 05/21/17 16:57 1 amp ONCE ONE Administration Albuterol/Ipratropium 1 amp 05/21/17 16:56 05/21/17 16:58 Duoneb - NEB 05/21/17 16:57 1 amp ONCE ONE Administration Hydrocortisone Sodium Succinate 100 mg 05/21/17 17:30 05/21/17 17:55 Solu-Cortef - IVPUSH 05/21/17 17:31 100 mg ONCE ONE Administration Sodium Chloride 1,000 mls @ 1,000 mls/hr 05/21/17 16:52 05/21/17 17:45 Normal Saline - IV 05/21/17 17:51 1,000 mls/hr ASDIR STA Administration <Vira Loyd - Last Filed: 05/21/17 19:06> - LABORATORY CBC & Chemistry Diagram: 05/21/17 17:15 05/21/17 17:15 - ADDITIONAL ORDERS Additional order review: Laboratory Results 05/21/17 05/21/17 05/21/17 17:15 17:15 17:15 PT with INR 12.30 H INR 1.12 PTT (Actin FS) 22.6 L Sodium 138 Potassium 3.4 L Chloride 102 Carbon Dioxide 26 Anion Gap 10 BUN 25 H Creatinine 1.0 Creat Clearance w eGFR 53.76 Random Glucose 145 H D Lactic Acid 0.9 Calcium 8.3 L Total Bilirubin 0.8 Direct Bilirubin AST 24 ALT 9 L D Alkaline Phosphatase 98 Creatine Kinase 24 L Troponin I 0.18 H B-Natriuretic Peptide Total Protein 6.1 L Albumin 2.5 L Lipase 05/21/17 05/21/17 17:06 17:06 PT with INR INR PTT (Actin FS) Sodium Potassium Chloride Carbon Dioxide Anion Gap BUN Creatinine Creat Clearance w eGFR Random Glucose Lactic Acid Calcium Total Bilirubin 0.7 Direct Bilirubin 0.2 AST 25 D ALT 12 D Alkaline Phosphatase 100 D Creatine Kinase Troponin I B-Natriuretic Peptide 95938.53 H Total Protein 6.1 L Albumin 2.4 L D Lipase 85 05/21/17 17:15 RBC 3.75 MCV 87.4 MCHC 32.8 RDW 15.7 H MPV 7.3 L Neutrophils % No Result Required. Lymphocytes % No Result Required. - Medications Given in the ED: ED Medications Discontinued Medications Generic Name Dose Route Start Last Admin Trade Name Freq PRN Reason Stop Dose Admin Acetaminophen 1,000 mg 05/21/17 17:55 05/21/17 17:15 Ofirmev Injection - IVPB 05/21/17 17:56 1,000 mg ONCE ONE Administration Albuterol Sulfate 1 amp 05/21/17 16:56 05/21/17 16:58 Ventolin 0.083% Nebulizer Soln - NEB 05/21/17 16:57 1 amp ONCE ONE Administration Albuterol/Ipratropium 1 amp 05/21/17 16:56 05/21/17 16:58 Duoneb - NEB 05/21/17 16:57 1 amp ONCE ONE Administration Hydrocortisone Sodium Succinate 100 mg 05/21/17 17:30 05/21/17 17:55 Solu-Cortef - IVPUSH 05/21/17 17:31 100 mg ONCE ONE Administration Sodium Chloride 1,000 mls @ 1,000 mls/hr 05/21/17 16:52 05/21/17 17:45 Normal Saline - IV 05/21/17 17:51 1,000 mls/hr ASDIR STA Administration Levofloxacin 150 mls @ 100 mls/hr 05/21/17 18:38 05/21/17 19:00 Levaquin 750 Mg Premixed Ivpb - IVPB 05/21/17 20:07 100 mls/hr ONCE ONE Administration <Lorna Babb - Last Filed: 05/21/17 20:41> Medical Decision Making - Medical Decision Making 05/21/17 17:20 Pt is a 76 yo female w/PMHx of HTN, COPD, TIA, polymyalgia rheumatica, temporal arteritis, breast cancer and pancreatitis who presents with a week long history of shortness of breath that worsened today. Patient also admits to several episodes of hemoptysis over the past week. On exam, patient is sitting in bed with resting tremor, labored breathing Wheezing bilaterally on auscultation Patient given nebulizers Patient has a temp of 102 F, lactate and blood cultures sent EKG reviewed and negative Labs ordered CXR ordered 05/21/17 18:39 [facility] <Chris Virk - Last Filed: 05/21/17 18:40> - Medical Decision Making 05/21/17 19:06 Dr. Davis was called and the patient's case was discussed. <Vira Loyd - Last Filed: 05/21/17 19:06> *DC/Admit/Observation/Transfer - Discharge Dispostion Admit: Yes <Chris Virk - Last Filed: 05/21/17 18:40> <Vira Loyd - Last Filed: 05/21/17 19:06> <Lorna Babb - Last Filed: 05/21/17 20:41> Diagnosis at time of Disposition: Acute exacerbation of bronchiectasis, Acute exacerbation of chronic obstructive bronchitis Pneumonia Qualifiers: Pneumonia type: due to Escherichia coli Laterality: bilateral Lung location: unspecified part of lung Qualified Code(s): J15.5 - Pneumonia due to Escherichia coli - Discharge Dispostion Condition at time of disposition: Improved
[2017-05-21 17:29] LABS: MCH 28.7 pg (25.7-33.7); MCHC 32.8 g/dl (32.0-36.0); MEAN CELL VOLUME 87.4 fl (80-96); MEAN PLT VOLUME 7.3 fl (7.5-11.1); PLATELET COUNT 175 K/MM3 (134-434); RDW 15.7 % (11.6-15.6); WHITE BLOOD COUNT 8.4 K/mm3 (4.0-10.0)
[2017-05-21] MEDS ORDERED: HYDROCORTISONE SOD SUCCINATE 100 MG/2 ML VIAL IVPUSH ONE (17:30)
[2017-05-21 17:41] LABS: INR 1.12 (0.82-1.09); PROTHROMBIN TIME (PATIENT) 12.3 SEC (9.98-11.88)
[2017-05-21 17:44] LABS: ACTIVATED PTT 22.6 SECONDS (26.9-34.4)
[2017-05-21] MEDS ORDERED: ACETAMINOPHEN 1000 MG/100 ML VIAL (NON FORMULARY) IVPB ONE (17:55)
[2017-05-21 18:14] LABS: ALBUMIN 2.5 g/dl (3.4-5.0); ANION GAP 10 (8-16); BILIRUBIN,TOTAL 0.8 mg/dL (0.2-1.0); CALCIUM 8.3 mg/dL (8.5-10.1); CO2 26 mmol/L (21-32); GLUCOSE,RANDOM 145 mg/dL (74-106); SGOT/AST 24 U/L (15-37); SGPT/ALT 9 U/L (12-78); TOT PROT 6.1 g/dl (6.4-8.2)
[2017-05-21 18:17] LABS: ALK PHOS 98 U/L (45-117); CPK 24 IU/L (26-192); TROPONIN I 0.18 ng/ml (0.00-0.05)
[2017-05-21 18:25] LABS: PLATELET COMMENT2 NO CLOTTING DETECTED; PLATELET ESTIMATE ADEQUATE (NORMAL)
[2017-05-21] MEDS ORDERED: LEVOFLOXACIN 750 MG IVPB 150 ML IVPB ONE (18:38)
[2017-05-21 18:55] LABS: ALBUMIN 2.4 g/dl (3.4-5.0); BILIRUBIN,DIRECT 0.2 mg/dL (0.0-0.2); BILIRUBIN,TOTAL 0.7 mg/dL (0.2-1.0); TOT PROT 6.1 g/dl (6.4-8.2)
[2017-05-21 19:25] LABS: URINE APPEARANCE SLCLOUDY; URINE BILIRUBIN NEGATIVE (NEGATIVE); URINE BLOOD 1+ (NEGATIVE); URINE COLOR YELLOW; URINE GLUCOSE (UA) 1+ (NEGATIVE); URINE KETONE TRACE (NEGATIVE); URINE NITRITE NEGATIVE (NEGATIVE); URINE UROBILINOGEN NEGATIVE mg/dL (0.2-1.0)
[2017-05-21 19:27] LABS: URINE PROTEIN 2+ (NEGATIVE)
[2017-05-21 19:33] LABS: URINE BACTERIA RARE /hpf (NONE SEEN); URINE HYALINE CAST 3 /lpf; URINE MUCUS RARE; URINE RBC 1 /hpf (0-3); URINE WBC 2 /hpf (3-5)
[2017-05-21 21:28] LABS: URINE LEUK ESTERASE Negative (NEGATIVE)
[2017-05-21 22:12] VITALS: BMI 20.7
[2017-05-21] MEDS: LABETALOL HCL 100 MG TABLET (FP) PO SCH (22:55)
[2017-05-21] MEDS: amLODIPine BESYLATE 5 MG TABLET (FP) PO SCH (22:55)
[2017-05-22] MEDS ORDERED: methylPREDNISolone NA SUCC 40 MG/1 ML VIAL IVPB SCH (03:00)
[2017-05-22] MEDS: LABETALOL HCL 100 MG TABLET (FP) PO SCH ×3 (05:59→21:27)
[2017-05-22] MEDS: ALBUTEROL SO4 0.083% IH SOL 2.5 MG/3 ML VIAL.NEB. NEB PRN ×2 (07:00→23:05)
--- NOTE | 2017-05-22 08:34 | HP ---
Admitting History and Physical - Primary Care Physician PCP: Raysa Davis - Admission Chief Complaint: bloody sputum/weakness History of Present Illness: recently dc from hospital after evaluation and treatment for subacute CVA and presumptive temporal arteritis. felt progressively weaker at home, developed hemoptysis about 2 weeks ago, condition worsened and came to er yesterday due to profound weakness. had temp 102 in er. History Source: Patient Limitations to Obtaining History: No Limitations - Past Medical History REHABILITATION LIAISON: Yes: Other (chronic headaches recent diagnosis of Parkinson's ds. chronic cortical/subcortical small infarcts) Cardiovascular: Yes: CAD, HTN Pulmonary: Yes: COPD, Other (interstitial lung disease/ho MAC not tolerating RX) Gastrointestinal: Yes: Diverticulosis, Gastritis (H.pylori in 2010), Pancreatitis (Chronic pancreatitis/pancreas divisum s/p stents in past, none now ), Other (Superior mesenteric artery stenosis, celiac artery stenosis) Heme/Onc: Yes: Other (Left breast ca s/p lumpectomy/radiation/chemo) Musculoskeletal: Yes: Other (humerus fracture after a fall ) Rheumatology: Yes: Fibromyalgia, Other (Polymyalgia rheumatica. temporal artery biopsy on was not consistent with arteritis.) - Past Surgical History Past Surgical History: Yes: Appendectomy (at age 18), Hernia Repair (L inguinal 1983) - Smoking History Smoking history: Never smoked Have you smoked in the past 12 months: No Aproximately how many cigarettes per day: 0 - Alcohol/Substance Use Hx Alcohol Use: No - Social History Usual Living Arrangement: Yes: With Spouse ADL: Independent History of Recent Travel: No Home Medications - Allergies Allergies/Adverse Reactions: Allergies Allergy/AdvReac Type Severity Reaction Status Date / Time morphine AdvReac Mild N/V Verified 05/16/17 13:17 - Home Medications Home Medications: Ambulatory Orders Carbidopa/Levodopa *Cr* 25/100 [Sinemet *Cr* 25/100 -] 1 combo PO TIDCM #90 tab 04/20/17 Amlodipine Besylate [Norvasc -] 5 mg PO BID #60 tablet 04/29/17 Aspirin Coated [Ecotrin -] 81 mg PO DAILY #30 tablet 04/29/17 Pantoprazole Sodium [Protonix -] 40 mg PO DAILY #30 tab 04/29/17 Labetalol HCl [Normodyne -] 200 mg PO TID 10/03/17 Prednisone [Deltasone -] 60 mg PO DAILY #21 tablet 05/16/17 Family Disease History - Family Disease History Family Disease History: Other: Father ( of CVA in 90s, HTN), Brother (HTN, prostate ca), Sister (HTN), Daughter Review of Systems - Review of Systems Constitutional: reports: Fever, Lethargy, Weakness Eyes: reports: No Symptoms Neck: reports: No Symptoms Cardiovascular: reports: No Symptoms. denies: Chest Pain, Palpitations Respiratory: reports: Hemoptysis, SOB on Exertion, Wheezing Gastrointestinal: reports: No Symptoms Genitourinary: reports: No Symptoms Musculoskeletal: reports: Other (right humerus fracture-slowly healing) Integumentary: reports: No Symptoms Neurological: reports: Headache, Tremors, Unsteady Gait, Weakness Endocrine: reports: No Symptoms Hematology/Lymphatic: reports: No Symptoms Psychiatric: reports: No Symptoms Physical Examination Vital Signs: Vital Signs Temperature 97.6 F 05/22/17 06:00 Pulse Rate 92 H 05/22/17 06:00 Respiratory Rate 20 05/22/17 06:00 Blood Pressure 145/77 05/22/17 06:00 O2 Sat by Pulse Oximetry (%) 94 L 05/21/17 21:49 Constitutional: Yes: Calm, Other (weller facies) Eyes: Yes: WNL HENT: Yes: WNL Neck: Yes: Supple, Trachea Midline Cardiovascular: Yes: Regular Rate and Rhythm Respiratory: Yes: Rales (coarse basal rales). No: Wheezes Gastrointestinal: Yes: Normal Bowel Sounds, Soft Musculoskeletal: Yes: Muscle Weakness, Other (resting tremor) Extremities: Yes: WNL Edema: No Peripheral Pulses WNL: Yes Integumentary: Yes: WNL Neurological: Yes: WNL, Tremors Labs: Laboratory Results - last 24 hr 05/21/17 05/21/17 05/21/17 17:06 17:06 17:15 WBC 8.4 D RBC 3.75 Hgb 10.8 D Hct 32.8 MCV 87.4 MCH 28.7 MCHC 32.8 RDW 15.7 H Plt Count 175 D MPV 7.3 L Neutrophils % No Result Required. Neutrophils % (Manual) 83 H Band Neuts % (Manual) 8 Lymphocytes % No Result Required. Lymphocytes % (Manual) 6 L Monocytes % (Manual) 3 L Platelet Estimate Adequate Platelet Comment No clotting detected PT with INR INR PTT (Actin FS) Sodium Potassium Chloride Carbon Dioxide Anion Gap BUN Creatinine Creat Clearance w eGFR Random Glucose Lactic Acid Calcium Total Bilirubin 0.7 Direct Bilirubin 0.2 AST 25 D ALT 12 D Alkaline Phosphatase 100 D Creatine Kinase Troponin I B-Natriuretic Peptide 64625.53 H Total Protein 6.1 L Albumin 2.4 L D Lipase 85 Urine Color Urine Appearance Urine pH Ur Specific [place] Urine Protein Urine Glucose (UA) Urine Ketones Urine Blood Urine Nitrite Urine Bilirubin Urine Urobilinogen Ur Leukocyte Esterase Urine RBC Urine WBC Ur Epithelial Cells Urine Bacteria Hyaline Casts Urine Mucus Blood Type Antibody Screen 05/21/17 05/21/17 05/21/17 17:15 17:15 17:15 WBC RBC Hgb Hct MCV MCH MCHC RDW Plt Count MPV Neutrophils % Neutrophils % (Manual) Band Neuts % (Manual) Lymphocytes % Lymphocytes % (Manual) Monocytes % (Manual) Platelet Estimate Platelet Comment PT with INR 12.30 H INR 1.12 PTT (Actin FS) 22.6 L Sodium 138 Potassium 3.4 L Chloride 102 Carbon Dioxide 26 Anion Gap 10 BUN 25 H Creatinine 1.0 Creat Clearance w eGFR 53.76 Random Glucose 145 H D Lactic Acid 0.9 Calcium 8.3 L Total Bilirubin 0.8 Direct Bilirubin AST 24 ALT 9 L D Alkaline Phosphatase 98 Creatine Kinase 24 L Troponin I 0.18 H B-Natriuretic Peptide Total Protein 6.1 L Albumin 2.5 L Lipase Urine Color Urine Appearance Urine pH Ur Specific [place] Urine Protein Urine Glucose (UA) Urine Ketones Urine Blood Urine Nitrite Urine Bilirubin Urine Urobilinogen Ur Leukocyte Esterase Urine RBC Urine WBC Ur Epithelial Cells Urine Bacteria Hyaline Casts Urine Mucus Blood Type Antibody Screen 05/21/17 05/21/17 05/21/17 19:06 19:50 19:50 WBC RBC Hgb Hct MCV MCH MCHC RDW Plt Count MPV Neutrophils % Neutrophils % (Manual) Band Neuts % (Manual) Lymphocytes % Lymphocytes % (Manual) Monocytes % (Manual) Platelet Estimate Platelet Comment PT with INR INR PTT (Actin FS) Sodium Potassium Chloride Carbon Dioxide Anion Gap BUN Creatinine Creat Clearance w eGFR Random Glucose Lactic Acid 0.7 Calcium Total Bilirubin Direct Bilirubin AST ALT Alkaline Phosphatase Creatine Kinase Troponin I B-Natriuretic Peptide Total Protein Albumin Lipase Urine Color Yellow Urine Appearance Slcloudy Urine pH 5.0 D Ur Specific [place] 1.025 Urine Protein 2+ H Urine Glucose (UA) 1+ H Urine Ketones Trace H Urine Blood 1+ H Urine Nitrite Negative Urine Bilirubin Negative Urine Urobilinogen Negative Ur Leukocyte Esterase Negative Urine RBC 1 Urine WBC 2 Ur Epithelial Cells Rare Urine Bacteria Rare Hyaline Casts 3 Urine Mucus Rare Blood Type O POSITIVE Antibody Screen Negative Imaging - Results Chest X-ray: Report Reviewed EKG: Image Reviewed Problem List - Problems (1) Acute exacerbation of chronic obstructive bronchitis Code(s): J44.1 - CHRONIC OBSTRUCTIVE PULMONARY DISEASE W (ACUTE) EXACERBATION (2) Generalized weakness Code(s): R53.1 - WEAKNESS (3) History of polymyalgia rheumatica Code(s): Z87.39 - PERSONAL HISTORY OF DISEASES OF THE MS SYS AND CONN TISS (4) ILD (interstitial lung disease) Code(s): J84.9 - INTERSTITIAL PULMONARY DISEASE, UNSPECIFIED Assessment/Plan iv steroid iv abx repeat chest ct-possible mass on xray slightly elevated cardiac enzymkes, normal ekg-serial cardiac enzymes, telemtry monitor, card eval requested gi/dvt prophylaxis pulm consult requested-pt has long h/o intermittent hemoptysis, ILD, h/o MAC unable to tolerate rx in past
[2017-05-22 09:14] LABS: TROPONIN I 0.08 ng/ml (0.00-0.05)
[2017-05-22] MEDS ORDERED: DEXTROSE 5%-WATER - 50 ML IVPB ONE (09:15)
[2017-05-22] MEDS ORDERED: cefTRIAXone SODIUM 1 GM VIAL ONE (09:15)
[2017-05-22] MEDS: ASPIRIN COATED 81 MG TABLET.EC PO SCH (09:51)
[2017-05-22] MEDS: PANTOPRAZOLE 40 MG TABLET (FP) PO SCH (09:51)
[2017-05-22] MEDS: amLODIPine BESYLATE 5 MG TABLET (FP) PO SCH ×2 (09:52→21:27)
[2017-05-22] MEDS ORDERED: CEFTRIAXONE 1 GM in DEXTROSE 5%-WATER - 50 ML IVPB SCH (10:00)
[2017-05-22] MEDS ORDERED: ENOXAPARIN NA (PORCINE) 40 MG/0.4 ML DISP.SYRIN SQ SCH (10:00)
[2017-05-22] MEDS: methylPREDNISolone NA SUCC 40 MG/1 ML VIAL IVPB SCH ×3 (10:27→21:27)
--- NOTE | 2017-05-22 12:33 | PN ---
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 HEMOPTYSIS SECONDARY TO ABOVE COPD H/O BREAST CA TIA H/O MAC ON BAL H/O TEMPORAL ARTERITIS PLAN IV ANTIBIOTICS IV STEROIDS INHALED BRONCHODILATORS PRN QUANTIFY HEMOPTYSIS CULTURES F/U CHEST X-RAY MECHANICAL DVT PROPHYLAXIS ID EVALUATION DR HICKS Problem List - Problems (1) Acute exacerbation of bronchiectasis Code(s): J47.1 - BRONCHIECTASIS WITH (ACUTE) EXACERBATION (2) Generalized weakness Code(s): R53.1 - WEAKNESS (3) History of polymyalgia rheumatica Code(s): Z87.39 - PERSONAL HISTORY OF DISEASES OF THE MS SYS AND CONN TISS (4) Pneumonia Code(s): J18.9 - PNEUMONIA, UNSPECIFIED ORGANISM Qualifiers: Pneumonia type: due to Escherichia coli Laterality: bilateral Lung location: unspecified part of lung Qualified Code(s): J15.5 - Pneumonia due to Escherichia coli; J15.5 - Pneumonia due to Escherichia coli; J15.5 - Pneumonia due to Escherichia coli (5) COPD (chronic obstructive pulmonary disease) Code(s): J44.9 - CHRONIC OBSTRUCTIVE PULMONARY DISEASE, UNSPECIFIED Qualifiers : COPD type: unspecified COPD Qualified Code(s): J44.9 - Chronic obstructive pulmonary disease, unspecified; J44.9 - Chronic obstructive pulmonary disease, unspecified; J44.9 - Chronic obstructive pulmonary disease, unspecified; J44.9 - Chronic obstructive pulmonary disease, unspecified (6) CVA (cerebral vascular accident) Code(s): I63.9 - CEREBRAL INFARCTION, UNSPECIFIED (7) Cough Code(s): R05 - COUGH (8) MAC complex Code(s): A31.0 - PULMONARY MYCOBACTERIAL INFECTION (9) Sputum bloody Code(s): R04.2 - HEMOPTYSIS (10) Temporal arteritis Code(s): M31.6 - OTHER GIANT CELL ARTERITIS
--- NOTE | 2017-05-22 12:42 | EKG ---
Test Reason : Blood Pressure : / mmHG Vent. Rate : 089 BPM Atrial Rate : 089 BPM P-R Int : 120 ms QRS Dur : 096 ms QT Int : 362 ms P-R-T Axes : 035 -17 058 degrees QTc Int : 440 ms NORMAL SINUS RHYTHM LEFT VENTRICULAR HYPERTROPHY WITH REPOLARIZATION ABNORMALITY ABNORMAL ECG WHEN COMPARED WITH ECG OF 25-APR-2017 16:50, NO SIGNIFICANT CHANGE WAS FOUND Confirmed by JANIS ALTAMIRANO MD ([id number]) on 05/22/2017 12:42:36 PM Referred By: Marisa Solitario Confirmed By:JANIS ALTAMIRANO MD
--- NOTE | 2017-05-22 14:14 | PN ---
Progress Note (short form) - Note Progress Note: ID Consult dictated Hemoptysis in 76 year old female with chronic lung disease, now on steroids ? Community acquired pneumonia ? Atypical AFB ? Aspergillus Obtain sputum c/s Quantiferon Fungal serolgy Empiric ceftriaxone/ zithromax
[2017-05-22] MEDS ORDERED: AZITHROMYCIN IVPB 250 ML IVPB SCH (14:45)
--- NOTE | 2017-05-22 17:11 | CONS ---
DATE OF CONSULTATION: 05/22/2017 PULMONARY CONSULTATION REFERRING PHYSICIAN: Dr. Barton. HISTORY OF PRESENT ILLNESS: The patient is a 76-year-old white female with a past medical history of bronchiectasis, COPD, hypertension, polymyalgia rheumatica, TIA, temporal arteritis, history of breast cancer status post lumpectomy, history of pancreatitis, who presented to [facility] on May 21, complaining of a 2-3 day history of increasing shortness of breath, cough, fevers, chills and hemoptysis. The patient states she was doing well until approximately a week and a half prior to admission when she started developing some shortness of breath and hemoptysis. At that time she was placed on antibiotics with initial clinical response. She was doing well until approximately 2-3 days prior to this admission when she started developing a sudden onset shaking chills, shortness of breath and cough and hemoptysis. She presented to the emergency room with the above. She denied any nausea, vomiting, or diaphoresis. Denied any recent travel. She is a nonsmoker. There is no history of occupational exposure to chemicals or fumes. She is maintained on inhaled bronchodilator. She states the episode of hemoptysis was sputum mixed with occasional clots. She presented to the emergency room with the above. In the emergency room she was felt to have acute pneumonia and was admitted to the telemetry unit and started on broad-spectrum antibiotics and steroids . As stated before she is a nonsmoker. There is no history of occupational exposure to chemicals or fumes. Of noted, she underwent a bronchoscopy in 2013 which revealed no evidence of endobronchial pathology on some bronchial washings through MAP. PAST MEDICAL HISTORY: Again includes COPD, extensive bronchiectasis, hypertension, TIA, polymyalgia rheumatica, temporal arteritis, history of breast cancer, status post left lumpectomy and pancreatitis. REVIEW OF SYSTEMS: Positive for shortness of breath, positive for cough, positive for hemoptysis, no chest pain, no palpitations, positive fever, positive chills , no abdominal pain, no lower extremity edema. CURRENT MEDICATIONS: Include Solu-Medrol 40 q. 6 h, ceftriaxone, Lovenox, Albuterol, Normodyne, Norvasc, Sinemet, Ecotrin, and Protonix. PHYSICAL EXAMINATION: General: The patient is an elderly, thin white female who is well-developed, awake and alert, in no acute respiratory distress. Vitals: The patient is currently afebrile. Blood pressure is 145/77, respiratory rate 20, O2 saturation 94% on 2 L via nasal cannula. HEENT: Examination is normocephalic and atraumatic. Neck: Supple. Heart: Regular with normal S1, S2. Lungs: Scattered bilateral rhonchi throughout. Abdomen: Soft, bowel sounds positive. Extremities: No sign of edema. LABORATORY DATA: WBC 8.4, hemoglobin 10.8, hematocrit 32.8, platelet count 175, 000. INR is 1.12, BUN is 25, creatinine 1.0, BNP is 10,734. Chest CT revealed right upper lobe infiltrate as well as extensive bronchiectatic changes bilaterally with chronic left upper lobe fluid-filled cavity. IMPRESSION: 1. Pneumonia right upper lobe community acquired. 2. Extensive bronchiectasis. 3. Hemoptysis likely secondary to pneumonia as well as bronchiectasis, Aspergilloma 4. Elevated brain natriuretic peptide cannot exclude mild pulmonary failure. 5. History of breast cancer status post left lumpectomy. 6. History of polymyalgia rheumatica. PLAN: Broad-spectrum antibiotics, inhaled bronchodilators, supplemental O2, steroids, quantify hemoptysis, cultures, sputum cultures, obtain echocardiogram to evaluate left ventricular function, obtain followup chest x-rays. LUIS HICKS M.D. [id number] MTDD
[2017-05-22] MEDS: AZITHROMYCIN IVPB 500 MG in DEXTROSE 5%-WATER - 250 ML IVPB SCH (17:51)
--- NOTE | 2017-05-22 19:08 | CONS ---
DATE OF CONSULTATION: DATE OF DICTATION: 05/22/2017 INFECTIOUS DISEASE CONSULTATION HISTORY OF PRESENT ILLNESS: The patient is a 76-year-old female with a longstanding history of chronic lung disease, has an association between polymyalgia rheumatica and . She is admitted now with hemoptysis. Patient reports a longstanding history of hemoptysis dating back several years. She most recently complained of worsening generalized weakness, subjective fever and worsening cough. She fell at home and is stating trauma to her right upper extremity. She states she passed out. She was admitted to the hospital, where her course has been complicated by fever to 102. Chest x-ray and CAT scan show significant chronic lung disease with nodular lesions, and the official report is not available. She reports that coughing up a significant amount of blood, more so than usual. She denies any purulent sputum production. She denied any chest pain or shortness of breath. No known ill contacts. She was recently hospitalized at [facility] for temporal arteritis. She was started on a course of prednisone. Of note, the patient is a lifelong nonsmoker. She was recently placed on high-dose prednisone for diagnosis of temporal arteritis. She denies being steroid dependent, although history is somewhat vague, she did say she was on low-dose prednisone for temporal arteritis. No recent travel. PAST MEDICAL HISTORY: Positive for Parkinsonism, stroke, breast cancer, chronic lung disease, polymyalgia rheumatica, and temporal arteritis, COPD. PAST SURGICAL HISTORY: Status post left breast lumpectomy, appendectomy, hernia. ALLERGIES: MORPHINE. MEDICATION: Protonix, labetalol, Norvasc, aspirin, Sinemet. SOCIAL HISTORY: She was originally from [place]. She has been living in the [facility] for the past 20 years. She is a lifelong nonsmoker. LABORATORY: White count 8.4, hematocrit 32.8, platelet count of 175. BUN 25, creatinine 1.0. Urinalysis: 2 white cells. PHYSICAL EXAMINATION: General: She is a chronically ill-appearing elderly female. She has a resting tremor. She appears slightly short of breath at rest. Vital signs: Temperature 97.6, T-max 102, blood pressure 145/77, pulse 92 and regular, respirations 20 per minute. HEENT: Sclerae anicteric. Cardiovascular: Heart sounds S1, S2. No loud murmur. Lungs: Bilateral scattered rhonchi upper lung garcia and fine crepitations lower lung garcia bilaterally. Abdomen: Soft. No tenderness elicited. No mass, rebound, or rigidity. Extremities: Negative for edema. IMPRESSION: A 76-year-old female with a long history of chronic lung disease, now on steroids for temporal arteritis. Admitted with hemoptysis, shortness of breath, increased cough, now with fever 102. 1. Possible community acquired pneumonia. 2. Rule out atypical mycobacterial lung infection. 3. Rule out pulmonary aspergillosis. Concerned about the possibility of atypical mycobacterial disease in this patient with chronic lung disease and hemoptysis. Cannot rule out invasive pulmonary aspergillosis in light of steroid use and nodular appearance on CAT scan. Obtain sputum culture, urine legionella, and pneumococcal antigens. Quantiferon. Obtain fungal serology for aspergillus. Empiric antibiotic coverage with Zithromax and ceftriaxone. No objection to the steroid use. Pulmonary will follow up. Will follow. Thank you for the kind referral. ANAHY AMADOR M.D. [id number]
[2017-05-23] MEDS: methylPREDNISolone NA SUCC 40 MG/1 ML VIAL IVPB SCH ×4 (02:28→21:29)
[2017-05-23] MEDS: LABETALOL HCL 100 MG TABLET (FP) PO SCH ×3 (05:58→21:29)
[2017-05-23] MEDS ORDERED: CEFTRIAXONE 1 G/50 ML PREMIX 50 ML IVPB SCH (10:00)
[2017-05-23] MEDS: AZITHROMYCIN IVPB 500 MG in DEXTROSE 5%-WATER - 250 ML IVPB SCH (10:24)
[2017-05-23] MEDS: PANTOPRAZOLE 40 MG TABLET (FP) PO SCH (10:24)
[2017-05-23] MEDS: amLODIPine BESYLATE 5 MG TABLET (FP) PO SCH ×2 (10:24→21:29)
[2017-05-23] MEDS: ASPIRIN COATED 81 MG TABLET.EC PO SCH (10:24)
--- NOTE | 2017-05-23 10:30 | PN ---
Progress Note, Physician History of Present Illness: PULMONARY ALERT,FEELING BETTER,LESS DYSPNEIC,-HEMOPTYSIS - Current Medication List Current Medications: Active Medications Albuterol Sulfate (Ventolin 0.083% Nebulizer Soln -) 1 amp NEB Q4H PRN PRN Reason: SHORT OF BREATH/WHEEZING Last Admin: 05/22/17 23:05 Dose: 1 amp Amlodipine Besylate (Norvasc -) 5 mg PO BID [facility] Last Admin: 05/23/17 10:24 Dose: 5 mg Aspirin (Ecotrin -) 81 mg PO DAILY [facility] Last Admin: 05/23/17 10:24 Dose: 81 mg Carbidopa/Levodopa (Sinemet *Cr* 25/100 -) 1 combo PO TIDCM [facility] Last Admin: 05/23/17 08:47 Dose: 1 combo CEFTRIAXONE 1 G/50 ML PREMIX (Ceftriaxone 1 Gm-D5w Bag) 50 mls @ 100 mls/hr IVPB DAILY [facility] Stop: 05/28/17 10:29 Azithromycin 500 mg/ Dextrose 250 mls @ 250 mls/hr IVPB DAILY [facility] Last Admin: 05/23/17 10:24 Dose: 250 mls/hr Labetalol HCl (Normodyne -) 100 mg PO TID [facility] Last Admin: 05/23/17 05:58 Dose: 100 mg Methylprednisolone Sodium Succinate (Solu-Medrol -) 40 mg IVPB Q6H-IV [facility] Last Admin: 05/23/17 08:47 Dose: 40 mg Pantoprazole Sodium (Protonix -) 40 mg PO DAILY [facility] Last Admin: 05/23/17 10:24 Dose: 40 mg - Objective Vital Signs: Vital Signs Temperature 98.2 F 05/23/17 06:00 Pulse Rate 85 05/23/17 06:00 Respiratory Rate 20 05/23/17 06:00 Blood Pressure 138/75 05/23/17 06:00 O2 Sat by Pulse Oximetry (%) 95 05/22/17 21:00 Constitutional: Yes: Well Nourished, Calm Eyes: Yes: WNL HENT: Yes: WNL Neck: Yes: WNL Cardiovascular: Yes: Regular Rate and Rhythm, S1, S2 Respiratory: Yes: Wheezes (SCATTERED WHEEZES LILIAM) Gastrointestinal: Yes: Normal Bowel Sounds, Soft Extremities: Yes: WNL Edema: No Labs: INR, PTT INR 1.12 (0.82-1.09) 05/21/17 17:15 - ....Imaging Cat Scan: Report Reviewed, Image Reviewed Problem List - Problems (1) Acute exacerbation of bronchiectasis Code(s): J47.1 - BRONCHIECTASIS WITH (ACUTE) EXACERBATION (2) Generalized weakness Code(s): R53.1 - WEAKNESS (3) History of polymyalgia rheumatica Code(s): Z87.39 - PERSONAL HISTORY OF DISEASES OF THE MS SYS AND CONN TISS (4) Pneumonia Code(s): J18.9 - PNEUMONIA, UNSPECIFIED ORGANISM Qualifiers: Pneumonia type: due to Escherichia coli Laterality: bilateral Lung location: unspecified part of lung Qualified Code(s): J15.5 - Pneumonia due to Escherichia coli; J15.5 - Pneumonia due to Escherichia coli; J15.5 - Pneumonia due to Escherichia coli (5) COPD (chronic obstructive pulmonary disease) Code(s): J44.9 - CHRONIC OBSTRUCTIVE PULMONARY DISEASE, UNSPECIFIED Qualifiers : COPD type: unspecified COPD Qualified Code(s): J44.9 - Chronic obstructive pulmonary disease, unspecified; J44.9 - Chronic obstructive pulmonary disease, unspecified; J44.9 - Chronic obstructive pulmonary disease, unspecified; J44.9 - Chronic obstructive pulmonary disease, unspecified (6) CVA (cerebral vascular accident) Code(s): I63.9 - CEREBRAL INFARCTION, UNSPECIFIED (7) Cough Code(s): R05 - COUGH (8) MAC complex Code(s): A31.0 - PULMONARY MYCOBACTERIAL INFECTION (9) Sputum bloody Code(s): R04.2 - HEMOPTYSIS (10) Temporal arteritis Code(s): M31.6 - OTHER GIANT CELL ARTERITIS Assessment/Plan IMP [id number] BRONCHIECTASIS,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 SHARATH HEMOPTYSIS SECONDARY TO ABOVE COPD H/O BREAST CA TIA H/O MAC ON BAL H/O TEMPORAL ARTERITIS PLAN IV ANTIBIOTICS PER ID IV STEROIDS INHALED BRONCHODILATORS PRN QUANTIFY HEMOPTYSIS F/U CHEST X-RAY DVT PROPHYLAXIS DR HICKS Problem List - Problems (1) Acute exacerbation of bronchiectasis Code(s): J47.1 - BRONCHIECTASIS WITH (ACUTE) EXACERBATION (2) Generalized weakness Code(s): R53.1 - WEAKNESS (3) History of polymyalgia rheumatica Code(s): Z87.39 - PERSONAL HISTORY OF DISEASES OF THE MS SYS AND CONN TISS (4) Pneumonia Code(s): J18.9 - PNEUMONIA, UNSPECIFIED ORGANISM Qualifiers: Pneumonia type: due to Escherichia coli Laterality: bilateral Lung location: unspecified part of lung Qualified Code(s): J15.5 - Pneumonia due to Escherichia coli; J15.5 - Pneumonia due to Escherichia coli; J15.5 - Pneumonia due to Escherichia coli (5) COPD (chronic obstructive pulmonary disease) Code(s): J44.9 - CHRONIC OBSTRUCTIVE PULMONARY DISEASE, UNSPECIFIED Qualifiers : COPD type: unspecified COPD Qualified Code(s): J44.9 - Chronic obstructive pulmonary disease, unspecified; J44.9 - Chronic obstructive pulmonary disease, unspecified; J44.9 - Chronic obstructive pulmonary disease, unspecified; J44.9 - Chronic obstructive pulmonary disease, unspecified (6) CVA (cerebral vascular accident) Code(s): I63.9 - CEREBRAL INFARCTION, UNSPECIFIED (7) Cough Code(s): R05 - COUGH (8) MAC complex Code(s): A31.0 - PULMONARY MYCOBACTERIAL INFECTION (9) Sputum bloody Code(s): R04.2 - HEMOPTYSIS (10) Temporal arteritis Code(s): M31.6 - OTHER GIANT CELL ARTERITIS
--- NOTE | 2017-05-23 11:06 | PN ---
Progress Note (short form) - Note Progress Note: feels better, no fever, no hemoptysis yet today. CBC, BMP 05/21/17 17:15 05/21/17 17:15 2nd cardiac enzyme negative Vital Signs Period Temp Pulse Resp BP Sys/Garcia Pulse Ox Last 24 Hr 97.8 F-98.4 F 83-92 20-20 132-138/59-75 95 S1S2 RRR lungs coarse basal rales, no wheezing oral thrush present abd soft NT no edema resting significant tremor present IMP Hemoptysis pneumonia possible/likely aspergillosis h/o MAC on [facility] steroid use for PMR recent acute CVA thrush mildly elevated troponin on admission PLAN iv abx, nebulizers, oxygen steroid taper GI/DVT prophylaxis BP fairly sable add nystatin if ok with cardiology can transfer to regular floor Problem List - Problems (1) Acute exacerbation of chronic obstructive bronchitis Code(s): J44.1 - CHRONIC OBSTRUCTIVE PULMONARY DISEASE W (ACUTE) EXACERBATION (2) Generalized weakness Code(s): R53.1 - WEAKNESS (3) History of polymyalgia rheumatica Code(s): Z87.39 - PERSONAL HISTORY OF DISEASES OF THE MS SYS AND CONN TISS (4) ILD (interstitial lung disease) Code(s): J84.9 - INTERSTITIAL PULMONARY DISEASE, UNSPECIFIED
[2017-05-23] MEDS ORDERED: PT OWN MED DRAWER 7, Y5N ONE ×2 (13:08→21:21)
--- NOTE | 2017-05-23 13:15 | PN ---
Progress Note, Physician History of Present Illness: Awake, alert Breathing non-labored Denies cough or recurrent hemoptysis No c/o fever/ chills Temps down Afebrile - Current Medication List Current Medications: Active Medications Albuterol Sulfate (Ventolin 0.083% Nebulizer Soln -) 1 amp NEB Q4H PRN PRN Reason: SHORT OF BREATH/WHEEZING Last Admin: 05/22/17 23:05 Dose: 1 amp Amlodipine Besylate (Norvasc -) 5 mg PO BID [facility] Last Admin: 05/23/17 10:24 Dose: 5 mg Aspirin (Ecotrin -) 81 mg PO DAILY [facility] Last Admin: 05/23/17 10:24 Dose: 81 mg Carbidopa/Levodopa (Sinemet *Cr* 25/100 -) 1 combo PO TIDCM [facility] Last Admin: 05/23/17 13:10 Dose: 1 combo CEFTRIAXONE 1 G/50 ML PREMIX (Ceftriaxone 1 Gm-D5w Bag) 50 mls @ 100 mls/hr IVPB DAILY [facility] Stop: 05/28/17 10:29 Last Admin: 05/23/17 13:11 Dose: 100 mls/hr Azithromycin 500 mg/ Dextrose 250 mls @ 250 mls/hr IVPB DAILY [facility] Last Admin: 05/23/17 10:24 Dose: 250 mls/hr Labetalol HCl (Normodyne -) 100 mg PO TID [facility] Last Admin: 05/23/17 13:10 Dose: 100 mg Methylprednisolone Sodium Succinate (Solu-Medrol -) 40 mg IVPB Q6H-IV [facility] Last Admin: 05/23/17 08:47 Dose: 40 mg Nystatin (Mycolog -) 1,000,000 unit PO TID [facility] Pantoprazole Sodium (Protonix -) 40 mg PO DAILY [facility] Last Admin: 05/23/17 10:24 Dose: 40 mg - Objective Vital Signs: Vital Signs Temperature 97.8 F 05/23/17 10:00 Pulse Rate 76 05/23/17 10:07 Respiratory Rate 80 H 05/23/17 10:00 Blood Pressure 138/75 05/23/17 06:00 O2 Sat by Pulse Oximetry (%) 95 05/23/17 10:07 Constitutional: Yes: No Distress, Other (+ resting tremor) Eyes: Yes: Conjunctiva Clear Cardiovascular: Yes: Regular Rate and Rhythm, S1, S2 Respiratory: Yes: Other (+ crepitations at bases) Gastrointestinal: Yes: Normal Bowel Sounds, Soft. No: Tenderness Labs: INR, PTT INR 1.12 (0.82-1.09) 05/21/17 17:15 Assessment/Plan Hemoptysis- resolved Pneumonia RUL Exacerbation COPD ? Pulmonary aspergillosis ? atypical AFB Await c/s, serologies Continue zithromax Substitute cefepime (presumptive Pseudomonas in sputum)
--- NOTE | 2017-05-23 15:19 | CONS ---
DATE OF CONSULTATION: 05/23/2017 TIME OF CONSULTATION: 2:10 p.m. CONSULTATION REQUESTED BY: Raysa Davis MD CARDIOLOGY CONSULTATION CHIEF COMPLAINT: 1. Cough. 2. Fever. 3. Hemoptysis. HISTORY OF PRESENT ILLNESS: The patient is a 76-year-old [place] female with history of hypertension, chronic obstructive pulmonary disease, history of temporal arteritis with recurring episodes of transient loss of vision, history of polymyalgia rheumatica, history of pancreatitis, status post left breast lumpectomy for carcinoma. Developed a cough with scant expectoration, was seen by PCP and was started on oral antibiotics. Patient states that the symptoms persisted and were accompanied by hemoptysis which became more pronounced and she came to the emergency room. There is no history of chest pain or discomfort either at rest or with exertion. She has chronic exertional dyspnea, no paroxysmal nocturnal dyspnea or orthopnea reported. She also complains of intermittent left pleuritic chest discomfort. Patient also has history of parkinsonism. PAST HISTORY: As mentioned in the HPI. SURGICAL HISTORY: 1. Status post appendectomy. 2. Status post stent involving the pancreatic duct. SOCIAL HISTORY: , nonsmoker. Denies excessive use of alcohol. FAMILY HISTORY: Father in his 80s apparently of natural causes. Mother at age 42, states she had multiple illnesses, type uncertain. Two brothers and 3 sisters. One of the brothers is apparently related to carcinoma. The other siblings are healthy. ALLERGIES: Intolerant to MORPHINE. MEDICATIONS: 1. Solu-Medrol 40 mg IV q.6 hours. 2. Azithromycin 500 mg IV daily. 3. Cefepime 1 g IV q.8 hours. 4. Albuterol via nebulizer, 1 ampule q.4 hours p.r.n. 5. Labetalol 100 mg p.o. t.i.d. 6. Amlodipine 5 mg p.o. b.i.d. 7. Carbidopa/levodopa 25/100 mg 1 p.o. t.i.d. 8. Aspirin 81 mg p.o. daily. 9. Naftin 1 p.o. t.i.d. 10. Protonix 40 mg p.o. daily. REVIEW OF SYSTEMS: Constitutional: Denies having chills, history of fever. No history of night sweats reported. No history of recent unintentional weight loss. HEENT: No history of headaches, diplopia. History of multiple episodes of sudden transient loss of vision involving the left eye, apparently related to temporal arteritis. No history of hoarseness or epistaxis. No history of tinnitus or deafness reported. Cardiovascular: No history of chest pain or discomfort. History of hypertension. Respiratory: See history of present illness. No known history of tuberculosis. Gastrointestinal: See history of present illness. No history of nausea, vomiting, melena, or hematemesis. No history of change in bowel habits or abdominal discomfort. Neurologic: History of TIA. No history of focal weakness. History of parkinsonism. Endocrine: No history of polyuria or polydipsia, denies intolerance to cold or warm weather. Genitourinary: Recent history of frequency and dark urine. Hematological: No history of anemia, bleeding, or ecchymosis. Musculoskeletal: History of polymyalgia rheumatica. No history of arthralgias reported. PHYSICAL EXAMINATION: General: A 76-year-old female who had generalized resting tremors involving the mouth, right upper and lower extremities, and milder tremors involving the left upper extremity. Vital Signs: Blood pressure 138/75 mmHg. Pulse 76 beats per minute and regular. Temperature 97.8 degrees Fahrenheit. Respirations 20 per minute. Oxygen saturation 95% on 2 L of oxygen. Neck: Supple. No jugular venous distention. Carotids were 2+, upstrokes were normal. No bruits were heard, and no thyromegaly was present. Heart: PMI was in the 5th intercostal space. No heaves or thrills. Heart sounds were slightly obscured by coarse breath sounds. No murmur or gallops were appreciated. Lungs: Coarse crepitations at both bases, more pronounced at the left base posteriorly. Scattered expiratory rhonchi. Abdomen: Soft, slightly protuberant and nontender. No hepatosplenomegaly or palpable masses were felt. Extremities: No calf tenderness or dependent edema. Pulses were equal. Dorsalis pedis and posterior tibial were 1+. LABORATORY DATA: ECG May 21, 2017, sinus rhythm with interatrial conduction abnormality, LVH by voltage criteria, early transition in V2. Left axis deviation, probable interatrial conduction abnormality. Nonspecific ST abnormalities. Lab data May 21, 2017: CBC: WBC count 8400. Hemoglobin 10.8 g/dL. Platelet count 175,000. Differential: Neutrophils 83%. Bands 8%. Lymphocytes 6%. Monocytes 3%. Sodium 138, potassium 3.4, chloride 102, CO2 of 26 mmol/L. BUN 25, creatinine 1.0. Random glucose 145 mg/dL. BNP 10,734.53. CK 24 and 30, respectively. Troponins 0.18, 0.08. Urinalysis revealed 2+ protein, trace ketones, 1+ blood, [address] scan of the chest without contrast revealed when compared to study of April 08, 2017, interval development of right upper lobe and right lower lobe infiltrates, extensive bilateral upper and lower lobe pulmonary bronchiectasis. Left upper lobe and right middle lobe cavities containing nodular opacities suggestive of aspergillomas, trace bilateral effusion, probable cardiomegaly. IMPRESSION: 1. Elevated brain natriuretic peptide suggests congestive heart failure. 2. History of recurrence of pneumonia. 3. Bronchiectasis. 4. Pulmonary cavities suggestive of aspergillomas. 5. Temporal arteritis. 6. History of polymyalgia rheumatica. 7. Parkinsonism. 8. Hypokalemia. 9. Elevated troponins, possibly related to coronary artery disease. RECOMMENDATIONS: 1. Repeat basic metabolic profile. 2. Follow up EKG. 3. If potassium is , 20 mg of Lasix intravenously and then place her on 20 mg p.o. daily under close observation of BMP. 4. Concur with current antihypertensive therapy. 5. Would suggest repeat BNP. PROGNOSIS: Guarded. Thank you for your referral. ADAM WEBSTER M.D. [id number]
[2017-05-23] MEDS: NYSTATIN 500,000 UNITS TABLET PO SCH ×2 (15:26→21:29)
[2017-05-23 17:11] LABS: ANION GAP 9 (8-16); CALCIUM 8.8 mg/dL (8.5-10.1); CO2 28 mmol/L (21-32); CREATININE 1.2 mg/dL (0.55-1.02); GLUCOSE,RANDOM 136 mg/dL (74-106)
[2017-05-23 17:13] LABS: CPK 24 IU/L (26-192); TROPONIN I 0.06 ng/ml (0.00-0.05)
[2017-05-23] MEDS ORDERED: DEXTROSE 5%-WATER 100 ML IVPB ONE (17:30)
[2017-05-23] MEDS ORDERED: CEFEPIME HCL 1 GM VIAL (RESTRICTED TO ID) ONE (17:30)
[2017-05-23] MEDS: CEFEPIME 1 GM in DEXTROSE 5%-WATER 100 ML IVPB SCH (17:36)
[2017-05-23] MEDS ORDERED: CEFEPIME HCL 1 GM VIAL (RESTRICTED TO ID) IVPB SCH (18:00)
--- NOTE | 2017-05-23 21:40 | EKG ---
Test Reason : Blood Pressure : / mmHG Vent. Rate : 086 BPM Atrial Rate : 086 BPM P-R Int : 132 ms QRS Dur : 096 ms QT Int : 370 ms P-R-T Axes : 056 -16 018 degrees QTc Int : 442 ms NORMAL SINUS RHYTHM BASELINE ARTIFACT MODERATE VOLTAGE CRITERIA FOR LVH, MAY BE NORMAL VARIANT NONSPECIFIC ST ABNORMALITY ABNORMAL ECG WHEN COMPARED WITH ECG OF 21-MAY-2017 16:47, NO SIGNIFICANT CHANGE WAS FOUND PATIENT HAS MUSCLE TREMORS Confirmed by ADAM WEBSTER MD ([id number]) on 05/23/2017 9:39:42 PM Referred By: Marisa Solitario Confirmed By:ADAM WEBSTER MD
[2017-05-23] MEDS: diphenhydrAMINE HCL 25 MG CAPSULE (FP) PO SCH (22:50)
[2017-05-23] MEDS: ACETAMINOPHEN 325 MG TABLET (FP) PO SCH (22:50)
[2017-05-23] MEDS: ALBUTEROL SO4 0.083% IH SOL 2.5 MG/3 ML VIAL.NEB. NEB PRN (23:05)
[2017-05-24] MEDS ORDERED: CEFEPIME HCL 1 GM VIAL (RESTRICTED TO ID) ONE ×3 (02:24→16:19)
[2017-05-24] MEDS ORDERED: DEXTROSE 5%-WATER 100 ML IVPB ONE ×3 (02:24→16:20)
[2017-05-24] MEDS: CEFEPIME 1 GM in DEXTROSE 5%-WATER 100 ML IVPB SCH ×3 (02:31→17:00)
[2017-05-24] MEDS: methylPREDNISolone NA SUCC 40 MG/1 ML VIAL IVPB SCH ×4 (03:13→17:00)
[2017-05-24] MEDS: LABETALOL HCL 100 MG TABLET (FP) PO SCH ×3 (06:21→22:35)
[2017-05-24] MEDS: NYSTATIN 500,000 UNITS TABLET PO SCH (06:49)
--- NOTE | 2017-05-24 08:33 | PN ---
Progress Note (short form) - Note Progress Note: feels better, no fever, less hemoptysis CBC, BMP 05/21/17 17:15 05/23/17 15:15 Vital Signs Period Temp Pulse Resp BP Sys/Garcia Pulse Ox Last 24 Hr 97.6 F-98.4 F 76-93 17-80 134-151/74-82 95-96 S1S2 RRR lungs coarse basal rales, no wheezing oral thrush better abd soft NT no edema resting significant tremor present IMP Hemoptysis pneumonia likely aspergilloma h/o MAC on nursing home steroid use for PMR recent acute CVA thrush mildly elevated troponin on admission underlying CAD PLAN iv abx, nebulizers, oxygen steroid taper GI/DVT prophylaxis BP fairly sable add nystatin if ok with cardiology can transfer to regular floor PT eval consults appreciated Problem List - Problems (1) Acute exacerbation of chronic obstructive bronchitis Code(s): J44.1 - CHRONIC OBSTRUCTIVE PULMONARY DISEASE W (ACUTE) EXACERBATION (2) Generalized weakness Code(s): R53.1 - WEAKNESS (3) History of polymyalgia rheumatica Code(s): Z87.39 - PERSONAL HISTORY OF DISEASES OF THE MS SYS AND CONN TISS (4) ILD (interstitial lung disease) Code(s): J84.9 - INTERSTITIAL PULMONARY DISEASE, UNSPECIFIED
[2017-05-24] MEDS: ASPIRIN COATED 81 MG TABLET.EC PO SCH (09:19)
[2017-05-24] MEDS: PANTOPRAZOLE 40 MG TABLET (FP) PO SCH (09:19)
[2017-05-24] MEDS: amLODIPine BESYLATE 5 MG TABLET (FP) PO SCH ×2 (09:19→22:35)
[2017-05-24] MEDS ORDERED: PT OWN MED DRAWER 7, Y5N ONE (10:10)
[2017-05-24] MEDS: AZITHROMYCIN IVPB 500 MG in DEXTROSE 5%-WATER - 250 ML IVPB SCH (10:35)
--- NOTE | 2017-05-24 10:37 | PN ---
Progress Note, Physician History of Present Illness: Reports breathing improved No c/o dyspnea/ chest pain Denies cough. No recurrent hemoptysis Sputum c/s presumed pseudomonas - Current Medication List Current Medications: Active Medications Acetaminophen (Tylenol -) 325 mg PO [facility] Last Admin: 05/23/17 22:50 Dose: 325 mg Albuterol Sulfate (Ventolin 0.083% Nebulizer Soln -) 1 amp NEB Q4H PRN PRN Reason: SHORT OF BREATH/WHEEZING Last Admin: 05/23/17 23:05 Dose: 1 amp Amlodipine Besylate (Norvasc -) 5 mg PO BID [facility] Last Admin: 05/24/17 09:19 Dose: 5 mg Aspirin (Ecotrin -) 81 mg PO DAILY [facility] Last Admin: 05/24/17 09:19 Dose: 81 mg Carbidopa/Levodopa (Sinemet *Cr* 25/100 -) 1 combo PO TIDCM [facility] Last Admin: 05/24/17 09:19 Dose: 1 combo Diphenhydramine HCl (Benadryl -) 25 mg PO [facility] Last Admin: 05/23/17 22:50 Dose: 25 mg Azithromycin 500 mg/ Dextrose 250 mls @ 250 mls/hr IVPB DAILY [facility] Last Admin: 05/23/17 10:24 Dose: 250 mls/hr Cefepime HCl 1 gm/ Dextrose 100 mls @ 200 mls/hr IVPB Q8H-IV [facility] Last Admin: 05/24/17 09:19 Dose: 200 mls/hr Labetalol HCl (Normodyne -) 100 mg PO TID [facility] Last Admin: 05/24/17 06:21 Dose: 100 mg Methylprednisolone Sodium Succinate (Solu-Medrol -) 40 mg IVPB Q8H-IV [facility] Last Admin: 05/24/17 09:24 Dose: Not Given Nystatin (Nystatin Oral Suspension -) 1,000,000 units PO TID [facility] Pantoprazole Sodium (Protonix -) 40 mg PO DAILY [facility] Last Admin: 05/24/17 09:19 Dose: 40 mg - Objective Vital Signs: Vital Signs Temperature 98.2 F 05/24/17 06:00 Pulse Rate 89 05/24/17 06:00 Respiratory Rate 18 05/24/17 06:00 Blood Pressure 141/75 05/24/17 06:00 O2 Sat by Pulse Oximetry (%) 96 05/23/17 21:00 Constitutional: Yes: No Distress Cardiovascular: Yes: Regular Rate and Rhythm, S1, S2 Respiratory: Yes: Other (+ rales at bases bilaterally) Gastrointestinal: Yes: Normal Bowel Sounds, Soft. No: Tenderness Edema: No Labs: CBC, BMP 05/23/17 15:15 INR, PTT INR 1.12 (0.82-1.09) 05/21/17 17:15 Assessment/Plan Hemoptysis- resolved Pneumonia RUL Exacerbation COPD ? Pulmonary aspergillosis ? atypical AFB Await final c/s, serologies Continue zithromax/ cefepime
--- NOTE | 2017-05-24 10:41 | PN ---
Progress Note, Physician History of Present Illness: PULMONARY ALERT,FEELING BETTER,LESS DYSPNEIC,-HEMOPTYSIS - Current Medication List Current Medications: Active Medications Acetaminophen (Tylenol -) 325 mg PO HS [facility] Last Admin: 05/23/17 22:50 Dose: 325 mg Albuterol Sulfate (Ventolin 0.083% Nebulizer Soln -) 1 amp NEB Q4H PRN PRN Reason: SHORT OF BREATH/WHEEZING Last Admin: 05/23/17 23:05 Dose: 1 amp Amlodipine Besylate (Norvasc -) 5 mg PO BID [facility] Last Admin: 05/24/17 09:19 Dose: 5 mg Aspirin (Ecotrin -) 81 mg PO DAILY [facility] Last Admin: 05/24/17 09:19 Dose: 81 mg Carbidopa/Levodopa (Sinemet *Cr* 25/100 -) 1 combo PO TIDCM [facility] Last Admin: 05/24/17 09:19 Dose: 1 combo Diphenhydramine HCl (Benadryl -) 25 mg PO HS [facility] Last Admin: 05/23/17 22:50 Dose: 25 mg Azithromycin 500 mg/ Dextrose 250 mls @ 250 mls/hr IVPB DAILY [facility] Last Admin: 05/24/17 10:35 Dose: 250 mls/hr Cefepime HCl 1 gm/ Dextrose 100 mls @ 200 mls/hr IVPB Q8H-IV [facility] Last Admin: 05/24/17 09:19 Dose: 200 mls/hr Labetalol HCl (Normodyne -) 100 mg PO TID [facility] Last Admin: 05/24/17 06:21 Dose: 100 mg Methylprednisolone Sodium Succinate (Solu-Medrol -) 40 mg IVPB Q8H-IV [facility] Last Admin: 05/24/17 09:24 Dose: Not Given Nystatin (Nystatin Oral Suspension -) 1,000,000 units PO TID [facility] Pantoprazole Sodium (Protonix -) 40 mg PO DAILY [facility] Last Admin: 05/24/17 09:19 Dose: 40 mg - Objective Vital Signs: Vital Signs Temperature 98.2 F 05/24/17 06:00 Pulse Rate 89 05/24/17 06:00 Respiratory Rate 18 05/24/17 06:00 Blood Pressure 141/75 05/24/17 06:00 O2 Sat by Pulse Oximetry (%) 96 05/23/17 21:00 Constitutional: Yes: Well Nourished, Calm Eyes: Yes: WNL HENT: Yes: WNL Neck: Yes: WNL Cardiovascular: Yes: Regular Rate and Rhythm, S1, S2 Respiratory: Yes: Rales (LILIAM CRACKLES) Gastrointestinal: Yes: Normal Bowel Sounds, Soft Extremities: Yes: WNL Edema: No Labs: CBC, BMP 05/23/17 15:15 INR, PTT INR 1.12 (0.82-1.09) 05/21/17 17:15 Problem List - Problems (1) Acute exacerbation of bronchiectasis Code(s): J47.1 - BRONCHIECTASIS WITH (ACUTE) EXACERBATION (2) Generalized weakness Code(s): R53.1 - WEAKNESS (3) History of polymyalgia rheumatica Code(s): Z87.39 - PERSONAL HISTORY OF DISEASES OF THE MS SYS AND CONN TISS (4) Pneumonia Code(s): J18.9 - PNEUMONIA, UNSPECIFIED ORGANISM Qualifiers: Qualified Code(s): J15.5 - Pneumonia due to Escherichia coli; J15.5 - Pneumonia due to Escherichia coli; J15.5 - Pneumonia due to Escherichia coli (5) COPD (chronic obstructive pulmonary disease) Code(s): J44.9 - CHRONIC OBSTRUCTIVE PULMONARY DISEASE, UNSPECIFIED Qualifiers : Qualified Code(s): J44.9 - Chronic obstructive pulmonary disease, unspecified; J44.9 - Chronic obstructive pulmonary disease, unspecified; J44.9 - Chronic obstructive pulmonary disease, unspecified; J44.9 - Chronic obstructive pulmonary disease, unspecified (6) CVA (cerebral vascular accident) Code(s): I63.9 - CEREBRAL INFARCTION, UNSPECIFIED (7) Cough Code(s): R05 - COUGH (8) MAC complex Code(s): A31.0 - PULMONARY MYCOBACTERIAL INFECTION (9) Sputum bloody Code(s): R04.2 - HEMOPTYSIS (10) Temporal arteritis Code(s): M31.6 - OTHER GIANT CELL ARTERITIS Assessment/Plan IMP [id number] BRONCHIECTASIS,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 INHALED BRONCHODILATORS PRN QUANTIFY HEMOPTYSIS F/U CHEST X-RAY DVT PROPHYLAXIS ECHO DR HICKS Problem List - Problems (1) Acute exacerbation of bronchiectasis Code(s): J47.1 - BRONCHIECTASIS WITH (ACUTE) EXACERBATION (2) Generalized weakness Code(s): R53.1 - WEAKNESS (3) History of polymyalgia rheumatica Code(s): Z87.39 - PERSONAL HISTORY OF DISEASES OF THE MS SYS AND CONN TISS (4) Pneumonia Code(s): J18.9 - PNEUMONIA, UNSPECIFIED ORGANISM Qualifiers: Pneumonia type: due to Escherichia coli Laterality: bilateral Lung location: unspecified part of lung Qualified Code(s): J15.5 - Pneumonia due to Escherichia coli; J15.5 - Pneumonia due to Escherichia coli; J15.5 - Pneumonia due to Escherichia coli (5) COPD (chronic obstructive pulmonary disease) Code(s): J44.9 - CHRONIC OBSTRUCTIVE PULMONARY DISEASE, UNSPECIFIED Qualifiers : COPD type: unspecified COPD Qualified Code(s): J44.9 - Chronic obstructive pulmonary disease, unspecified; J44.9 - Chronic obstructive pulmonary disease, unspecified; J44.9 - Chronic obstructive pulmonary disease, unspecified; J44.9 - Chronic obstructive pulmonary disease, unspecified (6) CVA (cerebral vascular accident) Code(s): I63.9 - CEREBRAL INFARCTION, UNSPECIFIED (7) Cough Code(s): R05 - COUGH (8) MAC complex Code(s): A31.0 - PULMONARY MYCOBACTERIAL INFECTION (9) Sputum bloody Code(s): R04.2 - HEMOPTYSIS (10) Temporal arteritis Code(s): M31.6 - OTHER GIANT CELL ARTERITIS
[2017-05-24] MEDS: NYSTATIN 500,000 UNITS/5 ML SUSPENSION PO SCH ×2 (12:59→22:35)
--- NOTE | 2017-05-24 19:40 | PN ---
Progress Note (short form) - Note Progress Note: 76 year old female admitted with h/o of feve cough and hemoptysis,diagnosied to have a pneumonia and CHF, known case of COPD, bronchiectasis, Parkinsonism and h /o temporal arteritis. Patient is feeling better, less dyspneic, no chest pain or discomfort Active Medications Generic Name Dose Route Start Last Admin Trade Name Freq PRN Reason Stop Dose Admin Acetaminophen 325 mg 05/23/17 22:45 05/23/17 22:50 Tylenol - PO 325 mg HS [facility] Administration Albuterol Sulfate 1 amp 05/21/17 21:34 05/23/17 23:05 Ventolin 0.083% Nebulizer Soln - NEB 1 amp Q4H PRN Administration SHORT OF BREATH/WHEEZING Amlodipine Besylate 5 mg 05/21/17 22:00 05/24/17 09:19 Norvasc - PO 5 mg BID [facility] Administration Aspirin 81 mg 05/22/17 10:00 05/24/17 09:19 Ecotrin - PO 81 mg DAILY [facility] Administration Carbidopa/Levodopa 1 combo 05/22/17 08:00 05/24/17 17:00 Sinemet *Cr* 25/100 - PO 1 combo TIDCM [facility] Administration Diphenhydramine HCl 25 mg 05/23/17 22:45 05/23/17 22:50 Benadryl - PO 25 mg HS [facility] Administration Azithromycin 500 mg/ Dextrose 250 mls @ 250 mls/hr 05/22/17 16:00 05/24/17 10: 35 IVPB 250 mls/hr DAILY [facility] Administration Cefepime HCl 1 gm/ Dextrose 100 mls @ 200 mls/hr 05/23/17 18:00 05/24/17 17:00 IVPB 200 mls/hr Q8H-IV [facility] Administration Labetalol HCl 100 mg 05/21/17 22:00 05/24/17 13:00 Normodyne - PO 100 mg TID [facility] Administration Methylprednisolone Sodium Succinate 40 mg 05/24/17 08:45 05/24/17 17:00 Solu-Medrol - IVPB 40 mg Q8H-IV [facility] Administration Nystatin 1,000,000 units 05/24/17 08:58 05/24/17 12:59 Nystatin Oral Suspension - PO 1,000,000 units TID [facility] Administration Pantoprazole Sodium 40 mg 05/22/17 10:00 05/24/17 09:19 Protonix - PO 40 mg DAILY [facility] Administration 76 year old female with coarse tremors, no pallor, cyanosis or clubbing. Vital Signs - 8 hr 05/24/17 05/24/17 15:56 17:00 Temperature 98.3 F 98.4 F Pulse Rate 82 91 H Respiratory 18 20 Rate Blood Pressure 147/63 137/74 NECK: Supple, no JVD, +ve HJR carotids 2+. HEART: PMI in the 5th ICS, no heaves or thrills, grade I/ apical systolic murmur, no gallops heard LUNGS: bibasilar creps rt. more than left. ABDOMEN: Soft, nontender, no organomegaly, no masses felt. EXTREMITIES: No edema or calf tenderness. CBC, BMP 05/21/17 17:15 05/23/17 15:15 Intake & Output 05/21/17 05/22/17 05/23/17 05/24/17 23:59 23:59 23:59 23:59 Intake Total 836 929 5955 Balance 391 627 4952 Weight 124 lb 12.8 oz IMPRESSION: 1. Acute Bronchitis/ pneumonia. 2. Suspect superimposed CHF. 3. Bronchiectasis. 4. H/o temporial arteritis 5. Parkinsonism. RECOMMENDATIONS: 1. Short term addition of lasix( see consult). 2. F/u BNP. 3. F/u Xray chest. 4. Echocardiogram.
[2017-05-24] MEDS ORDERED: diphenhydrAMINE HCL 25 MG CAPSULE (FP) PO SCH (22:00)
[2017-05-24] MEDS ORDERED: ACETAMINOPHEN 325 MG TABLET (FP) PO SCH (22:00)
[2017-05-24] MEDS: diphenhydrAMINE HCL 25 MG CAPSULE (FP) PO SCH (22:35)
[2017-05-24] MEDS: ACETAMINOPHEN 325 MG TABLET (FP) PO SCH (22:36)
[2017-05-25] MEDS ORDERED: DEXTROSE 5%-WATER 100 ML IVPB ONE ×2 (01:44→08:09)
[2017-05-25] MEDS ORDERED: CEFEPIME HCL 1 GM VIAL (RESTRICTED TO ID) ONE ×2 (01:44→08:08)
[2017-05-25] MEDS: CEFEPIME 1 GM in DEXTROSE 5%-WATER 100 ML IVPB SCH ×2 (02:37→09:20)
[2017-05-25] MEDS: methylPREDNISolone NA SUCC 40 MG/1 ML VIAL IVPB SCH ×3 (02:37→18:14)
[2017-05-25] MEDS: NYSTATIN 500,000 UNITS/5 ML SUSPENSION PO SCH ×3 (06:45→21:51)
[2017-05-25] MEDS: LABETALOL HCL 100 MG TABLET (FP) PO SCH ×3 (06:45→21:50)
[2017-05-25 07:04] LABS: MCHC 32.1 g/dl (32.0-36.0); MEAN CELL VOLUME 87.2 fl (80-96); MEAN PLT VOLUME 7.3 fl (7.5-11.1); PLATELET COUNT 169 K/MM3 (134-434); RDW 15.5 % (11.6-15.6); WHITE BLOOD COUNT 5.9 K/mm3 (4.0-10.0)
[2017-05-25 07:13] LABS: ALBUMIN 2.5 g/dl (3.4-5.0); ANION GAP 9 (8-16); CALCIUM 8.7 mg/dL (8.5-10.1); CO2 29 mmol/L (21-32); GLUCOSE,RANDOM 174 mg/dL (74-106)
[2017-05-25 07:20] LABS: ALK PHOS 86 U/L (45-117); BILIRUBIN,TOTAL 0.6 mg/dL (0.2-1.0); SGOT/AST 19 U/L (15-37); SGPT/ALT 43 U/L (12-78)
[2017-05-25] MEDS ORDERED: PT OWN MED DRAWER 7, Y5N ONE ×2 (08:08→21:47)
--- NOTE | 2017-05-25 09:14 | PN ---
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 normal LV size, function and wall motion mild TR, AR Problem List - Problems (1) Acute exacerbation of chronic obstructive bronchitis Code(s): J44.1 - CHRONIC OBSTRUCTIVE PULMONARY DISEASE W (ACUTE) EXACERBATION (2) Generalized weakness Code(s): R53.1 - WEAKNESS (3) History of polymyalgia rheumatica Code(s): Z87.39 - PERSONAL HISTORY OF DISEASES OF THE MS SYS AND CONN TISS (4) ILD (interstitial lung disease) Code(s): J84.9 - INTERSTITIAL PULMONARY DISEASE, UNSPECIFIED
[2017-05-25] MEDS: PANTOPRAZOLE 40 MG TABLET (FP) PO SCH (09:20)
[2017-05-25] MEDS: FUROSEMIDE 20 MG TABLET (FP) PO SCH (09:20)
[2017-05-25] MEDS: amLODIPine BESYLATE 5 MG TABLET (FP) PO SCH ×2 (09:20→21:50)
[2017-05-25] MEDS: ASPIRIN COATED 81 MG TABLET.EC PO SCH (09:20)
[2017-05-25] MEDS: AZITHROMYCIN IVPB 500 MG in DEXTROSE 5%-WATER - 250 ML IVPB SCH (09:20)
[2017-05-25] MEDS: ALBUTEROL SO4 0.083% IH SOL 2.5 MG/3 ML VIAL.NEB. NEB PRN (09:51)
--- NOTE | 2017-05-25 13:00 | PN ---
Progress Note (short form) - Note Progress Note: Resting in NAD. No hemoptysis. No CP. Less SOB. CXR: Improving SHARATH opacity / otherwise no other significant changes Intake & Output 05/22/17 05/23/17 05/24/17 05/25/17 23:59 23:59 23:59 23:59 Intake Total 576 399 8601 480 Balance 222 163 2546 480 Last Vital Signs Temp Pulse Resp BP Pulse Ox 98.4 F 84 20 154/72 94 L 05/25/17 09:50 05/25/17 09:51 05/25/17 09:50 05/25/17 09:50 05/25/17 09:51 Active Medications Acetaminophen (Tylenol -) 325 mg PO HS [facility] Last Admin: 05/24/17 22:36 Dose: 325 mg Albuterol Sulfate (Ventolin 0.083% Nebulizer Soln -) 1 amp NEB Q4H PRN PRN Reason: SHORT OF BREATH/WHEEZING Last Admin: 05/25/17 09:51 Dose: 1 amp Amlodipine Besylate (Norvasc -) 5 mg PO BID [facility] Last Admin: 05/25/17 09:20 Dose: 5 mg Aspirin (Ecotrin -) 81 mg PO DAILY [facility] Last Admin: 05/25/17 09:20 Dose: 81 mg Carbidopa/Levodopa (Sinemet *Cr* 25/100 -) 1 combo PO TIDCM [facility] Last Admin: 05/25/17 11:43 Dose: 1 combo Diphenhydramine HCl (Benadryl -) 25 mg PO HS [facility] Last Admin: 05/24/17 22:35 Dose: 25 mg Furosemide (Lasix -) 20 mg PO DAILY [facility] Last Admin: 05/25/17 09:20 Dose: 20 mg Azithromycin 500 mg/ Dextrose 250 mls @ 250 mls/hr IVPB DAILY [facility] Last Admin: 05/25/17 09:20 Dose: 250 mls/hr Cefepime HCl 1 gm/ Dextrose 100 mls @ 200 mls/hr IVPB Q8H-IV [facility] Last Admin: 05/25/17 09:20 Dose: 200 mls/hr Labetalol HCl (Normodyne -) 100 mg PO TID [facility] Last Admin: 05/25/17 06:45 Dose: 100 mg Methylprednisolone Sodium Succinate (Solu-Medrol -) 40 mg IVPB Q8H-IV [facility] Last Admin: 05/25/17 09:20 Dose: 40 mg Nystatin (Nystatin Oral Suspension -) 1,000,000 units PO TID [facility] Last Admin: 05/25/17 06:45 Dose: 1,000,000 units Pantoprazole Sodium (Protonix -) 40 mg PO DAILY [facility] Last Admin: 05/25/17 09:20 Dose: 40 mg Constitutional: Yes: NAD Eyes: Yes: WNL HENT: Yes: WNL Neck: Yes: WNL Cardiovascular: Yes: Regular Rate and Rhythm, S1, S2 Respiratory: Yes: Bilateral Rhonchi Gastrointestinal: Yes: Normal Bowel Sounds, Soft Extremities: Yes: WNL Edema: No Labs: Laboratory Results - last 24 hr 05/23/17 05/25/17 05/25/17 05:35 06:15 06:15 WBC 5.9 RBC 3.43 L Hgb 9.6 L D Hct 29.9 L MCV 87.2 MCH 28.0 MCHC 32.1 RDW 15.5 Plt Count 169 MPV 7.3 L Neutrophils % 93.0 H Lymphocytes % 2.9 L D Monocytes % 4.1 Eosinophils % 0.0 D Basophils % 0.0 Sodium 143 Potassium 4.3 Chloride 105 Carbon Dioxide 29 Anion Gap 9 BUN 41 H Creatinine 1.0 Creat Clearance w eGFR 53.76 Random Glucose 174 H D Calcium 8.7 Total Bilirubin 0.6 D AST 19 D ALT 43 D Alkaline Phosphatase 86 B-Natriuretic Peptide 7103.23 H Total Protein 6.0 L Albumin 2.5 L TB Test (QFT) N Problem List - Problems (1) Acute exacerbation of bronchiectasis Code(s): J47.1 - BRONCHIECTASIS WITH (ACUTE) EXACERBATION (2) Generalized weakness Code(s): R53.1 - WEAKNESS (3) History of polymyalgia rheumatica Code(s): Z87.39 - PERSONAL HISTORY OF DISEASES OF THE MS SYS AND CONN TISS (4) Pneumonia Code(s): J18.9 - PNEUMONIA, UNSPECIFIED ORGANISM Qualifiers: Qualified Code(s): J15.5 - Pneumonia due to Escherichia coli; J15.5 - Pneumonia due to Escherichia coli; J15.5 - Pneumonia due to Escherichia coli (5) COPD (chronic obstructive pulmonary disease) Code(s): J44.9 - CHRONIC OBSTRUCTIVE PULMONARY DISEASE, UNSPECIFIED Qualifiers : Qualified Code(s): J44.9 - Chronic obstructive pulmonary disease, unspecified; J44.9 - Chronic obstructive pulmonary disease, unspecified; J44.9 - Chronic obstructive pulmonary disease, unspecified; J44.9 - Chronic obstructive pulmonary disease, unspecified (6) CVA (cerebral vascular accident) Code(s): I63.9 - CEREBRAL INFARCTION, UNSPECIFIED (7) Cough Code(s): R05 - COUGH (8) MAC complex Code(s): A31.0 - PULMONARY MYCOBACTERIAL INFECTION (9) Sputum bloody Code(s): R04.2 - HEMOPTYSIS (10) Temporal arteritis Code(s): M31.6 - OTHER GIANT CELL ARTERITIS Assessment/Plan IMP [id number] BRONCHIECTASIS WITH POSSIBLE SHARATH ASPERGILLOMA HEMOPTYSIS SECONDARY TO ABOVE COPD CHF H/O BREAST CA TIA H/O ANGELI H/O TEMPORAL ARTERITIS PLAN IV ANTIBIOTICS PER ID STEROID INHALED BRONCHODILATORS PRN MONITOR FOR HEMOPTYSIS DVT PROPHYLAXIS DR MAE
--- NOTE | 2017-05-25 14:42 | PN ---
Progress Note, Physician Chief Complaint: Cefepime and steroids Couph better NO hemoptysis - Current Medication List Current Medications: Active Medications Acetaminophen (Tylenol -) 325 mg PO HS [facility] Last Admin: 05/24/17 22:36 Dose: 325 mg Albuterol Sulfate (Ventolin 0.083% Nebulizer Soln -) 1 amp NEB Q4H PRN PRN Reason: SHORT OF BREATH/WHEEZING Last Admin: 05/25/17 09:51 Dose: 1 amp Amlodipine Besylate (Norvasc -) 5 mg PO BID [facility] Last Admin: 05/25/17 09:20 Dose: 5 mg Aspirin (Ecotrin -) 81 mg PO DAILY [facility] Last Admin: 05/25/17 09:20 Dose: 81 mg Carbidopa/Levodopa (Sinemet *Cr* 25/100 -) 1 combo PO TIDCM [facility] Last Admin: 05/25/17 11:43 Dose: 1 combo Diphenhydramine HCl (Benadryl -) 25 mg PO HS [facility] Last Admin: 05/24/17 22:35 Dose: 25 mg Furosemide (Lasix -) 20 mg PO DAILY [facility] Last Admin: 05/25/17 09:20 Dose: 20 mg Azithromycin 500 mg/ Dextrose 250 mls @ 250 mls/hr IVPB DAILY [facility] Last Admin: 05/25/17 09:20 Dose: 250 mls/hr Cefepime HCl 1 gm/ Dextrose 100 mls @ 200 mls/hr IVPB Q8H-IV [facility] Last Admin: 05/25/17 09:20 Dose: 200 mls/hr Labetalol HCl (Normodyne -) 100 mg PO TID [facility] Last Admin: 05/25/17 13:16 Dose: 100 mg Methylprednisolone Sodium Succinate (Solu-Medrol -) 40 mg IVPB Q8H-IV [facility] Last Admin: 05/25/17 09:20 Dose: 40 mg Nystatin (Nystatin Oral Suspension -) 1,000,000 units PO TID [facility] Last Admin: 05/25/17 13:16 Dose: 1,000,000 units Pantoprazole Sodium (Protonix -) 40 mg PO DAILY [facility] Last Admin: 05/25/17 09:20 Dose: 40 mg - Objective Vital Signs: Vital Signs Temperature 98.4 F 05/25/17 09:50 Pulse Rate 84 05/25/17 09:51 Respiratory Rate 20 05/25/17 09:50 Blood Pressure 154/72 05/25/17 09:50 O2 Sat by Pulse Oximetry (%) 94 L 05/25/17 09:51 Constitutional: Yes: No Distress HENT: Yes: WNL, Atraumatic Neck: Yes: WNL, Supple Respiratory: Yes: WNL, Regular, CTA Bilaterally. No: Rales, Tachypnea, Wheezes Gastrointestinal: Yes: Soft Labs: CBC, BMP 05/25/17 06:15 05/25/17 06:15 INR, PTT INR 1.12 (0.82-1.09) 05/21/17 17:15 Assessment/Plan Microbiology 05/21/17 19:15 Sputum - Expectorated Gram Stain - Final 05/21/17 19:15 Sputum - Expectorated Sputum Culture - Final Pseudomonas Aeruginosa 05/21/17 19:06 Urine - Urine Clean Catch Urine Culture - Final Contaminated: Please Repeat Laboratory Tests 05/25/17 05/25/17 06:15 06:15 WBC 5.9 Hgb 9.6 L D Plt Count 169 BUN 41 H Creatinine 1.0 Creat Clearance w eGFR 53.76 Assessment Infected bronchiectasisis Doubt aspergilloma though could be colonized with anything Plan Switch her po ciprofloxacin Anil LEON
[2017-05-25] MEDS: diphenhydrAMINE HCL 25 MG CAPSULE (FP) PO SCH (21:50)
[2017-05-25] MEDS: ACETAMINOPHEN 325 MG TABLET (FP) PO SCH (21:51)
[2017-05-25] MEDS: CIPROFLOXACIN 250 MG TABLET (RESTRICTED TO ID) PO SCH (21:51)
[2017-05-26 00:06] LABS: QFT TB AG - NIL VALUE <0.01 IU/mL (.); QUANT MITOGEN VALUE 0.06 IU/mL (.); QUANT NIL VALUE 0.05 IU/mL (.); QUANT TB AG VALUE 0.02 IU/mL (.); QUANTIFERON GOLD Indeterminate (Negative)
[2017-05-26] MEDS: LABETALOL HCL 100 MG TABLET (FP) PO SCH ×3 (06:27→21:07)
[2017-05-26] MEDS: methylPREDNISolone NA SUCC 40 MG/1 ML VIAL IVPB SCH ×2 (06:27→17:00)
[2017-05-26] MEDS: NYSTATIN 500,000 UNITS/5 ML SUSPENSION PO SCH ×3 (06:27→21:08)
[2017-05-26] MEDS: ASPIRIN COATED 81 MG TABLET.EC PO SCH (09:12)
[2017-05-26] MEDS: CIPROFLOXACIN 250 MG TABLET (RESTRICTED TO ID) PO SCH ×2 (09:12→21:07)
[2017-05-26] MEDS: PANTOPRAZOLE 40 MG TABLET (FP) PO SCH (09:12)
[2017-05-26] MEDS: amLODIPine BESYLATE 5 MG TABLET (FP) PO SCH ×2 (09:12→21:07)
[2017-05-26] MEDS: FUROSEMIDE 20 MG TABLET (FP) PO SCH (09:12)
--- NOTE | 2017-05-26 09:13 | PN ---
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 normal LV size, function and wall motion mild TR, AR dc planning on 7 day oral abx oral steroid will d/w pulm Problem List - Problems (1) Acute exacerbation of chronic obstructive bronchitis Code(s): J44.1 - CHRONIC OBSTRUCTIVE PULMONARY DISEASE W (ACUTE) EXACERBATION (2) Generalized weakness Code(s): R53.1 - WEAKNESS (3) History of polymyalgia rheumatica Code(s): Z87.39 - PERSONAL HISTORY OF DISEASES OF THE MS SYS AND CONN TISS (4) ILD (interstitial lung disease) Code(s): J84.9 - INTERSTITIAL PULMONARY DISEASE, UNSPECIFIED
--- NOTE | 2017-05-26 11:30 | PN ---
Progress Note, Physician History of Present Illness: pulmonary alert,feeling better,less dyspneic,-hemoptysis - Current Medication List Current Medications: Active Medications Acetaminophen (Tylenol -) 325 mg PO HS [facility] Last Admin: 05/25/17 21:51 Dose: 325 mg Albuterol Sulfate (Ventolin 0.083% Nebulizer Soln -) 1 amp NEB Q4H PRN PRN Reason: SHORT OF BREATH/WHEEZING Last Admin: 05/25/17 09:51 Dose: 1 amp Amlodipine Besylate (Norvasc -) 5 mg PO BID [facility] Last Admin: 05/26/17 09:12 Dose: 5 mg Aspirin (Ecotrin -) 81 mg PO DAILY [facility] Last Admin: 05/26/17 09:12 Dose: 81 mg Carbidopa/Levodopa (Sinemet *Cr* 25/100 -) 1 combo PO TIDCM [facility] Last Admin: 05/26/17 09:05 Dose: 1 combo Ciprofloxacin (Cipro (Restricted To Id)) 250 mg PO BID [facility] Last Admin: 05/26/17 09:12 Dose: 250 mg Diphenhydramine HCl (Benadryl -) 25 mg PO HS [facility] Last Admin: 05/25/17 21:50 Dose: 25 mg Furosemide (Lasix -) 20 mg PO DAILY [facility] Last Admin: 05/26/17 09:12 Dose: 20 mg Labetalol HCl (Normodyne -) 100 mg PO TID [facility] Last Admin: 05/26/17 06:27 Dose: 100 mg Methylprednisolone Sodium Succinate (Solu-Medrol -) 40 mg IVPB Q12H [facility] Last Admin: 05/26/17 06:27 Dose: 40 mg Nystatin (Nystatin Oral Suspension -) 1,000,000 units PO TID [facility] Last Admin: 05/26/17 06:27 Dose: 1,000,000 units Pantoprazole Sodium (Protonix -) 40 mg PO DAILY [facility] Last Admin: 05/26/17 09:12 Dose: 40 mg - Objective Vital Signs: Vital Signs Temperature 99.1 F 05/26/17 09:00 Pulse Rate 84 05/26/17 10:39 Respiratory Rate 20 05/26/17 09:00 Blood Pressure 157/82 05/26/17 09:00 O2 Sat by Pulse Oximetry (%) 97 05/26/17 10:39 Constitutional: Yes: Well Nourished, Calm Eyes: Yes: WNL HENT: Yes: WNL Neck: Yes: WNL Cardiovascular: Yes: Regular Rate and Rhythm, S1, S2 Respiratory: Yes: Rales (scattered dangelo rhonchi,crackles), Rhonchi Gastrointestinal: Yes: Normal Bowel Sounds, Soft Extremities: Yes: WNL Edema: No Labs: CBC, BMP 05/25/17 06:15 05/25/17 06:15 INR, PTT INR 1.12 (0.82-1.09) 05/21/17 17:15 Problem List - Problems (1) Acute exacerbation of bronchiectasis Code(s): J47.1 - BRONCHIECTASIS WITH (ACUTE) EXACERBATION (2) Generalized weakness Code(s): R53.1 - WEAKNESS (3) History of polymyalgia rheumatica Code(s): Z87.39 - PERSONAL HISTORY OF DISEASES OF THE MS SYS AND CONN TISS (4) Pneumonia Code(s): J18.9 - PNEUMONIA, UNSPECIFIED ORGANISM Qualifiers: Pneumonia type: due to Escherichia coli Laterality: bilateral Lung location: unspecified part of lung Qualified Code(s): J15.5 - Pneumonia due to Escherichia coli; J15.5 - Pneumonia due to Escherichia coli; J15.5 - Pneumonia due to Escherichia coli (5) COPD (chronic obstructive pulmonary disease) Code(s): J44.9 - CHRONIC OBSTRUCTIVE PULMONARY DISEASE, UNSPECIFIED Qualifiers : COPD type: unspecified COPD Qualified Code(s): J44.9 - Chronic obstructive pulmonary disease, unspecified; J44.9 - Chronic obstructive pulmonary disease, unspecified; J44.9 - Chronic obstructive pulmonary disease, unspecified; J44.9 - Chronic obstructive pulmonary disease, unspecified (6) CVA (cerebral vascular accident) Code(s): I63.9 - CEREBRAL INFARCTION, UNSPECIFIED (7) Cough Code(s): R05 - COUGH (8) MAC complex Code(s): A31.0 - PULMONARY MYCOBACTERIAL INFECTION (9) Sputum bloody Code(s): R04.2 - HEMOPTYSIS (10) Temporal arteritis Code(s): M31.6 - OTHER GIANT CELL ARTERITIS Assessment/Plan IMP [id number] clinically and radiographically improving BRONCHIECTASIS,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 INHALED BRONCHODILATORS PRN F/U CHEST X-RAY DVT PROPHYLAXIS DR HICKS Problem List - Problems (1) Acute exacerbation of bronchiectasis Code(s): J47.1 - BRONCHIECTASIS WITH (ACUTE) EXACERBATION (2) Generalized weakness Code(s): R53.1 - WEAKNESS (3) History of polymyalgia rheumatica Code(s): Z87.39 - PERSONAL HISTORY OF DISEASES OF THE MS SYS AND CONN TISS (4) Pneumonia Code(s): J18.9 - PNEUMONIA, UNSPECIFIED ORGANISM Qualifiers: Pneumonia type: due to Escherichia coli Laterality: bilateral Lung location: unspecified part of lung Qualified Code(s): J15.5 - Pneumonia due to Escherichia coli; J15.5 - Pneumonia due to Escherichia coli; J15.5 - Pneumonia due to Escherichia coli (5) COPD (chronic obstructive pulmonary disease) Code(s): J44.9 - CHRONIC OBSTRUCTIVE PULMONARY DISEASE, UNSPECIFIED Qualifiers : COPD type: unspecified COPD Qualified Code(s): J44.9 - Chronic obstructive pulmonary disease, unspecified; J44.9 - Chronic obstructive pulmonary disease, unspecified; J44.9 - Chronic obstructive pulmonary disease, unspecified; J44.9 - Chronic obstructive pulmonary disease, unspecified (6) CVA (cerebral vascular accident) Code(s): I63.9 - CEREBRAL INFARCTION, UNSPECIFIED (7) Cough Code(s): R05 - COUGH (8) MAC complex Code(s): A31.0 - PULMONARY MYCOBACTERIAL INFECTION (9) Sputum bloody Code(s): R04.2 - HEMOPTYSIS (10) Temporal arteritis Code(s): M31.6 - OTHER GIANT CELL ARTERITIS
--- NOTE | 2017-05-26 19:18 | PN ---
Progress Note (short form) - Note Progress Note: 76 year old female admitted with h/o of feve cough and hemoptysis,pneumonia,COPD , bronchiectasis, Parkinsonism and h/o temporal arteritis and CHF. Resting comfortably, no SOB, PND or orthopnea. On Lasix, Minimal cough, tolerating current therapy. Active Medications Acetaminophen (Tylenol -) 325 mg PO HS [facility] Last Admin: 05/25/17 21:51 Dose: 325 mg Albuterol Sulfate (Ventolin 0.083% Nebulizer Soln -) 1 amp NEB Q4H PRN PRN Reason: SHORT OF BREATH/WHEEZING Last Admin: 05/25/17 09:51 Dose: 1 amp Amlodipine Besylate (Norvasc -) 5 mg PO BID [facility] Last Admin: 05/26/17 09:12 Dose: 5 mg Aspirin (Ecotrin -) 81 mg PO DAILY [facility] Last Admin: 05/26/17 09:12 Dose: 81 mg Carbidopa/Levodopa (Sinemet *Cr* 25/100 -) 1 combo PO TIDCM [facility] Last Admin: 05/26/17 16:59 Dose: 1 combo Ciprofloxacin (Cipro (Restricted To Id)) 250 mg PO BID [facility] Last Admin: 05/26/17 09:12 Dose: 250 mg Diphenhydramine HCl (Benadryl -) 25 mg PO HS [facility] Last Admin: 05/25/17 21:50 Dose: 25 mg Furosemide (Lasix -) 20 mg PO DAILY [facility] Last Admin: 05/26/17 09:12 Dose: 20 mg Labetalol HCl (Normodyne -) 100 mg PO TID [facility] Last Admin: 05/26/17 14:51 Dose: 100 mg Methylprednisolone Sodium Succinate (Solu-Medrol -) 40 mg IVPB Q12H [facility] Last Admin: 05/26/17 17:00 Dose: 40 mg Nystatin (Nystatin Oral Suspension -) 1,000,000 units PO TID [facility] Last Admin: 05/26/17 14:51 Dose: 1,000,000 units Pantoprazole Sodium (Protonix -) 40 mg PO DAILY [facility] Last Admin: 05/26/17 09:12 Dose: 40 mg 76 year old female with coarse tremors, no pallor, cyanosis or clubbing. Vital Signs - 8 hr 05/26/17 05/26/17 15:00 18:00 Temperature 98.6 F 97.6 F Pulse Rate 88 87 Respiratory 18 19 Rate Blood Pressure 153/78 154/77 Intake & Output 05/23/17 05/24/17 05/25/17 05/26/17 23:59 23:59 23:59 23:59 Intake Total 580 1150 830 550 Balance 580 1150 830 550 NECK: Supple, no JVD, +ve HJR carotids 2+. HEART: PMI in the 5th ICS, no heaves or thrills, grade I/ apical systolic murmur, no gallops heard LUNGS: Minimal crepitations at the right base, left lung is clear. ABDOMEN: Soft, nontender, no organomegaly, no masses felt. EXTREMITIES: No edema or calf tenderness. CBC, BMP 05/25/17 06:15 05/25/17 06:15 IMPRESSION: 1. CHF, resolving. 2. H/O pneumonia. 3. Bronchiectasis. 4. H/o temporial arteritis 5. Parkinsonism. RECOMMENDATIONS: 1. Increase ambulation. 2. Current therapy. 3. Discharge when medically stable
[2017-05-26] MEDS ORDERED: PT OWN MED DRAWER 7, Y5N ONE (20:55)
[2017-05-26] MEDS: diphenhydrAMINE HCL 25 MG CAPSULE (FP) PO SCH (21:07)
[2017-05-26] MEDS: ACETAMINOPHEN 325 MG TABLET (FP) PO SCH (21:11)
[2017-05-27] MEDS: LABETALOL HCL 100 MG TABLET (FP) PO SCH (05:25)
[2017-05-27] MEDS: NYSTATIN 500,000 UNITS/5 ML SUSPENSION PO SCH (05:25)
[2017-05-27] MEDS: methylPREDNISolone NA SUCC 40 MG/1 ML VIAL IVPB SCH (05:25)
--- NOTE | 2017-05-27 07:51 | DS ---
Physical Examination Vital Signs: Vital Signs Temperature 98.1 F 05/27/17 05:24 Pulse Rate 79 05/27/17 05:24 Respiratory Rate 20 05/27/17 05:24 Blood Pressure 149/76 05/27/17 05:24 O2 Sat by Pulse Oximetry (%) 93 L 05/26/17 21:00 Constitutional: Yes: Calm Eyes: Yes: EOM Intact HENT: Yes: Normocephalic Neck: Yes: Trachea Midline Cardiovascular: Yes: Regular Rate and Rhythm Respiratory: Yes: Rales (coarse bilateral basal) Gastrointestinal: Yes: Normal Bowel Sounds, Soft Edema: No Neurological: Yes: Tremors Labs: CBC, BMP 05/25/17 06:15 05/25/17 06:15 Discharge Summary Reason For Visit: PNEUMONIA Current Active Problems Acute exacerbation of bronchiectasis (Acute) Acute exacerbation of chronic obstructive bronchitis (Acute) Anemia due to blood loss, chronic (Acute) Generalized weakness (Acute) History of polymyalgia rheumatica (Acute) ILD (interstitial lung disease) (Acute) Orthostatic hypotension (Acute) Pneumonia (Acute) Pulmonary hypertension (Acute) Seizure (Acute) Hospital Course: admitted for pneumonia, chest CT c/w severe bronchiectasis, suggestion of aspergilloma started iv steroids, iv abx, with improvement sputum cx grew pseudomonas, fungal testing still pending O2 sats on room air are over 92% ambulating, declined VNS medically stable to dc home with close outpt follow up. Condition: Guarded - Instructions Diet, Activity, Other Instructions: please follow up with next week Disposition: HOME - Home Medications Comprehensive Discharge Medication List: Ambulatory Orders Current Medications Acetaminophen (Tylenol -) 325 mg PO HS [facility] Last Admin: 05/26/17 21:11 Dose: Not Given Albuterol Sulfate (Ventolin 0.083% Nebulizer Soln -) 1 amp NEB Q4H PRN PRN Reason: SHORT OF BREATH/WHEEZING Last Admin: 05/25/17 09:51 Dose: 1 amp Amlodipine Besylate (Norvasc -) 5 mg PO BID [facility] Last Admin: 05/26/17 21:07 Dose: 5 mg Aspirin (Ecotrin -) 81 mg PO DAILY [facility] Last Admin: 05/26/17 09:12 Dose: 81 mg Carbidopa/Levodopa (Sinemet *Cr* 25/100 -) 1 combo PO TIDCM [facility] Last Admin: 10/13/17 16:59 Dose: 1 combo Ciprofloxacin (Cipro (Restricted To Id)) 250 mg PO BID [facility] Last Admin: 05/26/17 21:07 Dose: 250 mg Furosemide (Lasix -) 20 mg PO DAILY [facility] Last Admin: 05/26/17 09:12 Dose: 20 mg Labetalol HCl (Normodyne -) 100 mg PO TID [facility] Last Admin: 05/27/17 05:25 Dose: 100 mg Nystatin (Nystatin Oral Suspension -) 1,000,000 units PO TID [facility] Last Admin: 05/27/17 05:25 Dose: 1,000,000 units Pantoprazole Sodium (Protonix -) 40 mg PO DAILY [facility] Last Admin: 05/26/17 09:12 Dose: 40 mg Prednisone 40 mg x2 days, then 20 mg daily
[2017-05-27] MEDS: FUROSEMIDE 20 MG TABLET (FP) PO SCH (09:00)
[2017-05-27] MEDS: PANTOPRAZOLE 40 MG TABLET (FP) PO SCH (09:00)
[2017-05-27] MEDS: amLODIPine BESYLATE 5 MG TABLET (FP) PO SCH (09:00)
[2017-05-27] MEDS: ASPIRIN COATED 81 MG TABLET.EC PO SCH (09:00)
[2017-05-27] MEDS: CIPROFLOXACIN 250 MG TABLET (RESTRICTED TO ID) PO SCH (09:00)
[2017-05-27 11:09] VITALS: PULSE 82
[2017-05-27 11:23] VITALS: BP 136/84; TEMP 98.4
[2017-05-27 12:34] LABS: ASPERGILLUS GALACTOMANNAN AG 0.05
== END 2017-05-27 11:41 | disposition home or self-care (01) | DRG 867 ==
LOC: JER 16:23 → JERBED 18:41 → J4W 21:48
PROVIDERS: ADMIT Internal Medicine; ATTEND Internal Medicine
DX: B44.9 Aspergillosis, unspecified (principal); J15.5 Pneumonia due to Escherichia coli; J84.9 Interstitial pulmonary disease, unspecified; J47.1 Bronchiectasis with (acute) exacerbation; R04.2 Hemoptysis; B37.0 Candidal stomatitis; Z86.73 Personal history of transient ischemic attack (TIA), and cerebral infarction without residual deficits; M35.3 Polymyalgia rheumatica; Z85.3 Personal history of malignant neoplasm of breast; G20 Parkinson's disease; E87.6 Hypokalemia; I50.9 Heart failure, unspecified; I27.20 Pulmonary hypertension, unspecified; I11.0 Hypertensive heart disease with heart failure
CPT/HCPCS: 36415; 71010-TC; 71250-TC; 80048; 80053; 80076; 81003; 81015; 82550; 83605; 83690; 83880; 84484; 85025; 85610; 85730; 86480; 86850; 86900; 86901; 87040; 87070; 87086; 87186; 87205; 87305; 87449; 93005; 93010; 94640; 94761; 97116-GP; 97161-GP; 99283-25

== ENCOUNTER 2017-05-30 20:14 | Emergency (ER) | payer OTHER, MEDICARE ==
[2017-05-30 20:34] VITALS: TEMP 97.8; BMI 20.7
--- NOTE | 2017-05-30 20:36 | PDOC ---
History of Present Illness - General History Source: Patient, Old Records Exam Limitations: No Limitations - History of Present Illness Initial Comments: 05/30/17 21:13 The patient is a 76 year old female, with a significant past medical history of anemia, breast CA, TIA, chronic hemoptysis, gastritis, pancreatitis, and HTN, who presents to the emergency department with cough, abdominal pain and dark stools. She describes her abdominal pain as localized on her lower abdomen, ranging from mild to moderate, without radiation or modifying factors. She describes her stool as dark and tarry. She was recently discharged 3 days ago after being treated for pneumonia. The patient denies chest pain, shortness of breath, headache and dizziness. Denies fever, chills, nausea, vomit, diarrhea and constipation. Denies dysuria, frequency, urgency and hematuria. Allergies: Morphine Past surgical history: Appendectomy, Pancreas stent placement Social history: No alcohol, tobacco or drug use reported <Chato Piedra - Last Filed: 05/30/17 23:24> <Eloisa Alfonso - Last Filed: 05/31/17 03:00> - General Chief Complaint: Pain Stated Complaint: ABDOMINAL PAIN Time Seen by Provider: 05/30/17 20:21 Past History <Chato Piedra - Last Filed: 05/30/17 23:24> - Past Medical History Anemia: Yes Asthma: No Cancer: Yes (BREAST) Cardiac Disorders: No CVA: Yes (tia) COPD: Yes (chronic hemoptysis) CHF: No Dementia: No Diabetes: No GI Disorders: Yes (gastritis, pancreatitis) Disorders: No HTN: Yes Hypercholesterolemia: No Liver Disease: No Psychiatric Problems: No Seizures: No Thyroid Disease: No - Surgical History Abdominal Surgery: Yes (stent placement pancreas) Appendectomy: Yes Cholecystectomy: No Orthopedic Surgery: No - Immunization History Immunization Up to Date: Yes - Suicide/Smoking/Psychosocial Hx Smoking Status: No Smoking History: Never smoked Have you smoked in the past 12 months: No Number of Cigarettes Smoked Daily: 0 Information on smoking cessation initiated: No Hx Alcohol Use: No Drug/Substance Use Hx: No Substance Use Type: None Hx Substance Use Treatment: No <Eloisa Alfonso - Last Filed: 05/31/17 03:00> - Past Medical History Allergies/Adverse Reactions: Allergies Allergy/AdvReac Type Severity Reaction Status Date / Time morphine AdvReac Mild N/V Verified 05/30/17 20:22 Home Medications: Ambulatory Orders Carbidopa/Levodopa *Cr* 25/100 [Sinemet *Cr* 25/100 -] 1 combo PO TIDCM #90 tab 04/20/17 Amlodipine Besylate [Norvasc -] 5 mg PO BID #60 tablet 04/29/17 Aspirin Coated [Ecotrin -] 81 mg PO DAILY #30 tablet 04/29/17 Pantoprazole Sodium [Protonix -] 40 mg PO DAILY #30 tab 04/29/17 Labetalol HCl [Normodyne -] 200 mg PO TID 05/16/17 Albuterol 0.083% Nebulizer Ester [Ventolin 0.083% Nebulizer Soln -] 1 amp NEB Q4H PRN #60 amp 05/27/17 Furosemide [Lasix -] 20 mg PO DAILY #30 tablet 05/27/17 Nystatin Oral Suspension - [Nystatin Oral Susp 282382 Units/5 ML -] 1,000,000 units PO TID #300 ml 05/27/17 Prednisone [Deltasone -] 20 mg PO DAILY #30 tablet 05/27/17 Review of Systems - Review of Systems Able to Perform ROS?: Yes Comments:: 05/30/17 21:13 GENERAL/CONSTITUTIONAL: No fever or chills. No weakness. HEAD, EYES, EARS, NOSE AND THROAT: No change in vision. No ear pain or discharge. No sore throat.- CARDIOVASCULAR: No chest pain or shortness of breath RESPIRATORY: (+) Cough. No wheezing, or hemoptysis. GASTROINTESTINAL: (+) Abdominal pain and Dark Stools. No nausea, vomiting, diarrhea or constipation. GENITOURINARY: No dysuria, frequency, or change in urination. MUSCULOSKELETAL: No joint or muscle swelling or pain. No neck or back pain. SKIN: No rash NEUROLOGIC: No headache, vertigo, loss of consciousness, or change in strength/ sensation. ENDOCRINE: No increased thirst. No abnormal weight change HEMATOLOGIC/LYMPHATIC: No anemia, easy bleeding, or history of blood clots. ALLERGIC/IMMUNOLOGIC: No hives or skin allergy. <Chato Piedra - Last Filed: 05/30/17 23:24> *Physical Exam - Vital Signs Last Vital Signs Temp Pulse Resp BP Pulse Ox 97.8 F 90 14 149/80 92 L 05/30/17 20:26 05/30/17 20:26 05/30/17 20:26 05/30/17 20:26 05/30/17 20:26 - Physical Exam Comments: 05/30/17 21:14 GENERAL: Awake, alert, and fully oriented, in no acute distress HEAD: No signs of trauma, normocephalic, atraumatic EYES: PERRLA, EOMI, sclera anicteric, conjunctiva clear ENT: Auricles normal inspection, hearing grossly normal, nares patent, oropharynx clear without exudates. Moist mucosa NECK: Normal ROM, supple, no lymphadenopathy, JVD, or masses LUNGS: (+) Scattered ronchi in all lungs garcia. No distress, speaks full sentences. HEART: Regular rate and rhythm, normal S1 and S2, no murmurs, rubs or gallops, peripheral pulses normal and equal bilaterally. ABDOMEN: Soft, nontender, normoactive bowel sounds. No guarding, no rebound. No masses EXTREMITIES : Normal inspection, Normal range of motion, no edema. No clubbing or cyanosis. NEUROLOGICAL: Cranial nerves II through XII grossly intact. Normal speech, normal gait, no focal sensorimotor deficits SKIN: Warm, Dry, normal turgor, no rashes or lesions noted. RECTAL EXAM: Brown stool. <Chato Piedra - Last Filed: 05/30/17 23:24> - Vital Signs Last Vital Signs Temp Pulse Resp BP Pulse Ox 97.8 F 90 14 149/80 92 L 05/30/17 20:26 05/30/17 20:26 05/30/17 20:26 05/30/17 20:26 05/30/17 20:26 <Eloisa Alfonso - Last Filed: 05/31/17 03:00> ED Treatment Course - LABORATORY CBC & Chemistry Diagram: 05/30/17 23:30 05/30/17 23:30 <Eloisa Alfonso - Last Filed: 05/31/17 03:00> Medical Decision Making - Medical Decision Making 05/31/17 02:49 On exam patient is alert and conversant. She is not in any acute distress. On exam, she was Hemoccult negative and her abdomen was benign pt had been discharged 3 days ago from the hospital after being treated for pneumonia lung exam showed some scattered rhonchi. CVS regular rate and rhythm S1, S2 abd soft, ni reboiund Neuro no gross focal neural deficits plan ct scan of abd /pel, if negative pt may be discharged <Eloisa Alfonso - Last Filed: 05/31/17 03:00> *DC/Admit/Observation/Transfer - Attestations Scribe Attestion: 05/30/17 21:14 Documentation prepared by Chato Piedra, acting as biomedical equipment tech for Eloisa Alfonso MD <Chato Piedra - Last Filed: 05/30/17 23:24> <Elosia Alfonso - Last Filed: 05/31/17 03:00> - Referrals Referrals: STAFF,NOT ON [Primary Care Provider] -
[2017-05-30] MEDS ORDERED: SODIUM CHLORIDE 500 ML IV STA (20:40)
[2017-05-30 23:35] LABS: MCH 28.5 pg (25.7-33.7); MCHC 32.9 g/dl (32.0-36.0); MEAN CELL VOLUME 86.7 fl (80-96); MEAN PLT VOLUME 7.6 fl (7.5-11.1); PLATELET COUNT 199 K/MM3 (134-434); RDW 15.8 % (11.6-15.6); WHITE BLOOD COUNT 8.9 K/mm3 (4.0-10.0)
[2017-05-31 00:13] LABS: ALBUMIN 2.8 g/dl (3.4-5.0); ANION GAP 10 (8-16); CALCIUM 8.3 mg/dL (8.5-10.1); CO2 32 mmol/L (21-32); CREATININE 1.2 mg/dL (0.55-1.02); GLUCOSE,RANDOM 113 mg/dL (74-106); SGOT/AST 34 U/L (15-37); SGPT/ALT 30 U/L (12-78)
[2017-05-31 00:15] LABS: ALK PHOS 107 U/L (45-117); BILIRUBIN,TOTAL 0.6 mg/dL (0.2-1.0); TOT PROT 6.2 g/dl (6.4-8.2)
[2017-05-31 00:19] LABS: INR 1.03 (0.82-1.09); PROTHROMBIN TIME (PATIENT) 11.6 SEC (9.98-11.88)
[2017-05-31 03:25] LABS: TOTAL CELLS COUNTED 100
--- NOTE | 2017-05-31 05:50 | PDOC ---
*Physical Exam - Vital Signs Last Vital Signs Temp Pulse Resp BP Pulse Ox 97.8 F 90 14 149/80 92 L 05/30/17 20:26 05/30/17 20:26 05/30/17 20:26 05/30/17 20:26 05/30/17 20:26 ED Treatment Course - LABORATORY CBC & Chemistry Diagram: 05/30/17 23:30 05/30/17 23:30 - ADDITIONAL ORDERS Additional order review: Laboratory Results 05/30/17 05/30/17 05/30/17 23:30 23:30 23:30 PT with INR 11.60 INR 1.03 Sodium 144 Potassium 3.5 Chloride 102 Carbon Dioxide 32 Anion Gap 10 BUN 34 H Creatinine 1.2 H Creat Clearance w eGFR 43.56 Random Glucose 113 H D Calcium 8.3 L Total Bilirubin 0.6 AST 34 D ALT 30 D Alkaline Phosphatase 107 D Total Protein 6.2 L Albumin 2.8 L Lipase 134 Stool Occult Blood Negative 05/30/17 23:30 RBC 3.80 MCV 86.7 MCHC 32.9 RDW 15.8 H MPV 7.6 Neutrophils % No Result Required. Lymphocytes % No Result Required. Medical Decision Making - Medical Decision Making 05/31/17 05:46 ct scan or Abd/pel just shows small fibroids and and ovarian cysts. No SBO or colitis. Pt to be discharged to follow up with pcp. *DC/Admit/Observation/Transfer Diagnosis at time of Disposition: Abdominal pain Qualifiers: Abdominal location: generalized Qualified Code(s): R10.84 - Generalized abdominal pain; R10.84 - Generalized abdominal pain - Discharge Dispostion Disposition: HOME Condition at time of disposition: Stable - Referrals Referrals: STAFF,NOT ON [Primary Care Provider] - Bozena Helton MD [Staff Physician] - Raysa Davis MD [Staff Physician] - - Patient Instructions Printed Discharge Instructions: DI for Abdominal Pain-Adult Additional Instructions: Please follow up with your primary care if your symptoms don't improve. - Post Discharge Activity
[2017-05-31 08:01] VITALS: BP 138/62; PULSE 72
--- NOTE | 2017-05-31 11:54 | EKG ---
Test Reason : Blood Pressure : / mmHG Vent. Rate : 087 BPM Atrial Rate : 087 BPM P-R Int : 098 ms QRS Dur : 118 ms QT Int : 402 ms P-R-T Axes : 056 -22 020 degrees QTc Int : 483 ms POOR DATA QUALITY, INTERPRETATION MAY BE ADVERSELY AFFECTED SINUS RHYTHM WITH SHORT ND POSSIBLE LEFT ATRIAL ENLARGEMENT LEFT VENTRICULAR HYPERTROPHY WITH QRS WIDENING CANNOT RULE OUT SEPTAL INFARCT , AGE UNDETERMINED INFERIOR INFARCT , AGE UNDETERMINED ABNORMAL ECG WHEN COMPARED WITH ECG OF 23-MAY-2017 15:08, ND INTERVAL HAS DECREASED Confirmed by LESLIE GALLEGO MD ([id number]) on 05/31/2017 11:53:52 AM Referred By: Confirmed By:LESLIE GALLEGO MD
== END 2017-05-31 08:01 | disposition home or self-care (01) ==
LOC: JER 20:14
DX: R10.30 Lower abdominal pain, unspecified (principal); D25.9 Leiomyoma of uterus, unspecified; N83.202 Unspecified ovarian cyst, left side; Z86.73 Personal history of transient ischemic attack (TIA), and cerebral infarction without residual deficits; Z85.3 Personal history of malignant neoplasm of breast
CPT/HCPCS: 36415; 71010-TC; 74176-TC; 80053; 82272; 83690; 85025; 85610; 93005; 93010; 99283-25

== ENCOUNTER 2017-08-15 22:05 | Inpatient (IN) | payer OTHER, MEDICARE ==
[2017-08-15] MEDS ORDERED: SODIUM CHLORIDE 1,000 ML IV STA (22:38)
[2017-08-15 23:25] LABS: HEMATOCRIT 33.5 % (32.4-45.2); HEMOGLOBIN 10.7 GM/dL (10.7-15.3); MCH 27.6 pg (25.7-33.7); MCHC 31.8 g/dl (32.0-36.0); MEAN CELL VOLUME 86.7 fl (80-96); MEAN PLT VOLUME 7.1 fl (7.5-11.1); PLATELET COUNT 371 K/MM3 (134-434); RBC 3.87 M/mm3 (3.60-5.2); RDW 17.1 % (11.6-15.6); WHITE BLOOD COUNT 7.4 K/mm3 (4.0-10.0)
[2017-08-15 23:37] LABS: INR 1.04 (0.82-1.09); PROTHROMBIN TIME (PATIENT) 11.7 SEC (9.98-11.88)
--- NOTE | 2017-08-15 23:44 | PDOC ---
History of Present Illness - General History Source: Patient Exam Limitations: No Limitations - History of Present Illness Initial Comments: 08/16/17 00:18 Patient is a 76 year old female with a significant past medical history of CA ( Left breast 1997), stroke (05/2017), COPD Anemia, , Pneumonia , Seizures , Pulmonary hypertension, parkinson's, who presents to the ED with complaints of general weakness that began 2 weeks ago. As per patient's patient began experiencing general weakness suddenly, showing no signs of subsiding. He reports patient has been tolerating liquids but states she has been experiencing decreased appetite. reports patient experienced left sided lung pain 1 week ago but is unsure if it is related to current symptoms. Denies chest pain, SOB. Denies nausea, vomiting. Denies fevers, chills. Denies contact with sick individuals, out of state travel. Denies any other symptoms. Allergies: None Social history: Lives with . No smoking. No alcohol. No illicit drugs. Surgical history: Left Mastectomy. PMD: Dr. Haas. <Clint Henriquez - Last Filed: 08/16/17 01:11> <Eloisa Alfonso - Last Filed: 08/16/17 02:35> - General Chief Complaint: Weakness Stated Complaint: WEAKNESS Time Seen by Provider: 08/15/17 22:35 Past History <Clint Henriquez - Last Filed: 08/16/17 01:11> - Past Medical History Anemia: Yes Asthma: No Cancer: Yes (BREAST) Cardiac Disorders: No CVA: Yes (tia) COPD: Yes (chronic hemoptysis) CHF: No Dementia: No Diabetes: No GI Disorders: Yes (gastritis, pancreatitis) Disorders: No HTN: Yes Hypercholesterolemia: No Liver Disease: No Psychiatric Problems: No Seizures: No Thyroid Disease: No - Surgical History Abdominal Surgery: Yes (stent placement pancreas) Appendectomy: Yes Cholecystectomy: No Orthopedic Surgery: No - Immunization History Immunization Up to Date: Yes - Suicide/Smoking/Psychosocial Hx Smoking Status: No Smoking History: Never smoked Have you smoked in the past 12 months: No Number of Cigarettes Smoked Daily: 0 Information on smoking cessation initiated: No Hx Alcohol Use: No Drug/Substance Use Hx: No Substance Use Type: None Hx Substance Use Treatment: No <Eloisa Alfonso - Last Filed: 08/16/17 02:35> - Past Medical History Allergies/Adverse Reactions: Allergies Allergy/AdvReac Type Severity Reaction Status Date / Time morphine AdvReac Mild N/V Verified 08/15/17 22:14 Home Medications: Ambulatory Orders Carbidopa/Levodopa *Cr* 25/100 [Sinemet *Cr* 25/100 -] 1 combo PO TIDCM #90 tab 04/20/17 Amlodipine Besylate [Norvasc -] 5 mg PO BID #60 tablet 04/29/17 Aspirin Coated [Ecotrin -] 81 mg PO DAILY #30 tablet 04/29/17 Pantoprazole Sodium [Protonix -] 40 mg PO DAILY #30 tab 04/29/17 Labetalol HCl [Normodyne -] 200 mg PO TID 05/16/17 Albuterol 0.083% Nebulizer Ester [Ventolin 0.083% Nebulizer Soln -] 1 amp NEB Q4H PRN #60 amp 05/27/17 Furosemide [Lasix -] 20 mg PO DAILY #30 tablet 05/27/17 Nystatin Oral Suspension - [Nystatin Oral Susp 622008 Units/5 ML -] 1,000,000 units PO TID #300 ml 05/27/17 Prednisone [Deltasone -] 20 mg PO DAILY #30 tablet 05/27/17 Carbidopa/Levodopa *Cr* 25/100 [Sinemet *Cr* 25/100 -] 1 combo PO BID 08/15/17 Review of Systems - Review of Systems Able to Perform ROS?: Yes Comments:: 08/16/17 00:18 CONSTITUTIONAL: +general weakness. Absent: fever, chills, diaphoresis, generalized weakness, malaise, loss of appetite HEENT: Absent: rhinorrhea, nasal congestion, throat pain, throat swelling, difficulty swallowing, mouth swelling, ear pain, eye pain, visual Changes CARDIOVASCULAR: Absent: chest pain, syncope, palpitations, irregular heart rate, lightheadedness , peripheral edema RESPIRATORY: + Exertional dyspnea. +Coughing Absent: shortness of breath, orthopnea, wheezing, stridor, hemoptysis GASTROINTESTINAL: +decreased appetite. Absent: abdominal pain, abdominal distension, nausea, vomiting, diarrhea, constipation, melena, hematochezia GENITOURINARY: +Urinary urgency. Absent: dysuria, frequency,, hesitancy, hematuria, flank pain, genital pain MUSCULOSKELETAL: Absent: myalgia, arthralgia, joint swelling SKIN: Absent: rash, itching, pallor HEMATOLOGIC/IMMUNOLOGIC: Absent: easy bleeding, easy bruising, lymphadenopathy, frequent infections ENDOCRINE: Absent: unexplained weight gain, unexplained weight loss, heat intolerance, cold intolerance NEUROLOGIC: Absent: headache, focal weakness or paresthesias, dizziness, unsteady gait, seizure, mental status changes, bladder or bowel incontinence PSYCHIATRIC: Absent: anxiety, depression, suicidal or homicidal ideation, hallucinations All Other Systems: Reviewed and Negative <Clint Henriquez - Last Filed: 08/16/17 01:11> *Physical Exam - Vital Signs Last Vital Signs Temp Pulse Resp BP Pulse Ox 98.3 F 90 22 105/64 93 L 08/15/17 22:12 08/15/17 22:12 08/15/17 22:12 08/15/17 22:12 08/15/17 22:12 - Physical Exam Comments: 08/16/17 00:18 GENERAL: Well developed, well nourished. Awake and alert. No acute distress. HEENT: +Dry Mucous Membranes. Normocephalic, atraumatic. PERRLA, EOMI. No conjunctival pallor. Sclera are non- icteric. Oropharynx is clear. NECK: Supple. Full ROM. No JVD. Carotid pulses 2+ and symmetric, without bruits. No thyromegaly. No lymphadenopathy. CARDIOVASCULAR: Regular rate and rhythm. No murmurs, rubs, or gallops. Distal pulses are 2+ and symmetric. PULMONARY: + Bibasilar rales No evidence of respiratory distress. Lungs clear to auscultation bilaterally. No wheezing, rales or rhonchi. ABDOMINAL: Soft. Non-tender. Non-distended. No rebound or guarding. No organomegaly. Normoactive bowel sounds. MUSCULOSKELETAL Normal range of motion at all joints. No bony deformities or tenderness. No CVA tenderness. EXTREMITIES: No cyanosis. No clubbing. No edema. No calf tenderness. SKIN: Warm and dry. Normal capillary refill. No rashes. No jaundice. NEUROLOGICAL: Alert, awake, appropriate. Cranial nerves 2-12 intact. No deficits to light touch and temperature in face, upper extremities and lower extremities. No motor deficits in the in face, upper extremities and lower extremities. Normoreflexic in the upper and lower extremities. Normal speech. Toes are down-going bilaterally. Gait is normal without ataxia. PSYCHIATRIC: Cooperative. Good eye contact. Appropriate mood and affect. <Clint Henriquez - Last Filed: 08/16/17 01:11> - Vital Signs Last Vital Signs Temp Pulse Resp BP Pulse Ox 98.3 F 90 22 105/64 93 L 08/15/17 22:12 08/15/17 22:12 08/15/17 22:12 08/15/17 22:12 08/15/17 22:12 <Eloisa Alfonso - Last Filed: 08/16/17 02:35> Heart Score/ECG Review - ECG Intrepretation Comment:: 08/16/17 01:11 Completed at 0:52:19. Vent. Rate 93 bpm Sinus rhythm with premature atrial complexes Nonspecific ST and T wave Abnormality Prolonged QT Abnormal ECG <Clint Henriquez - Last Filed: 08/16/17 01:11> ED Treatment Course - LABORATORY CBC & Chemistry Diagram: 08/15/17 23:00 08/15/17 23:00 - ADDITIONAL ORDERS Additional order review: Laboratory Results 08/15/17 08/15/17 08/15/17 23:00 23:00 23:00 PT with INR 11.70 INR 1.04 Creatine Kinase Cancelled Troponin I Cancelled C-Reactive Protein 9.9 H D 08/15/17 23:00 RBC 3.87 MCV 86.7 MCHC 31.8 L RDW 17.1 H MPV 7.1 L Neutrophils % No Result Required. Lymphocytes % No Result Required. - Medications Given in the ED: ED Medications Discontinued Medications Generic Name Dose Route Start Last Admin Trade Name Freq PRN Reason Stop Dose Admin Sodium Chloride 1,000 mls @ 1,000 mls/hr 08/15/17 22:38 08/15/17 23:24 Normal Saline - IV 08/15/17 23:37 1,000 mls/hr ASDIR STA Administration <Clint Henriquez - Last Filed: 08/16/17 01:11> - LABORATORY CBC & Chemistry Diagram: 08/15/17 23:00 08/15/17 23:00 - ADDITIONAL ORDERS Additional order review: Laboratory Results 08/15/17 08/15/17 23:00 23:00 PT with INR 11.70 INR 1.04 Creatine Kinase Cancelled Troponin I Cancelled 08/15/17 23:00 RBC 3.87 MCV 86.7 MCHC 31.8 L RDW 17.1 H MPV 7.1 L Neutrophils % No Result Required. Lymphocytes % No Result Required. - RADIOLOGY Radiology Studies Ordered: Category Date Time Status CHEST X-RAY PORTABLE* [RAD] Stat Radiology 08/15/17 22:39 Ordered - Medications Given in the ED: ED Medications Discontinued Medications Generic Name Dose Route Start Last Admin Trade Name Freq PRN Reason Stop Dose Admin Sodium Chloride 1,000 mls @ 1,000 mls/hr 08/15/17 22:38 08/15/17 23:24 Normal Saline - IV 08/15/17 23:37 1,000 mls/hr ASDIR STA Administration <Eloisa Alfonso - Last Filed: 08/16/17 02:35> Medical Decision Making - Medical Decision Making 08/16/17 02:27 76-year-old female presented with this evening for complaint of shortness of breath and increasing weakness for the past few days. Patient appeared to be in some mild distress with increased respiratory rate, mild hypoxia and a chronic significant facial and extremity tremor for which she takes carbidopa. Patient had a few scattered coarse rhonchi and scant wheezing on exam. Patient denied any fever or chills, productive cough, nausea, vomiting, diarrhea , or substernal chest pain. Patient is a past medical history significant for interstitial lung disease, Parkinson's disease, coronary artery disease, COPD, H. pylori, pancreatitis that required stents placed, fibromyalgia, humerus fracture in 2016 and a subcortical infarct. She had a echo done in April 2017 that showed left ventricle normal size and left ventricular systolic function normal. There is mild to moderate tricuspid regurg and some aortic regurg. No pericardial effusion. EKG was done and compared to prior EKGs. Today's EKG was normal sinus rhythm at 93 bpm, nonspecific with nonspecific ST and T-wave abnormalities. No significant change from her 05/30/2017 EKG Cardiac enzyme was negative. Labs reviewed, and she had a very mild hypokalemia that was supplemented Revealing chemistries revealing creatinine elevated slightly and she appears sl dehydrated and was given some IVF -IMP copd exacerbation case discussed w PCP Dr Davis and pt admitted to med/surg 08/16/17 02:32 08/16/17 02:33 <Eloisa Alfonso - Last Filed: 08/16/17 02:35> *DC/Admit/Observation/Transfer - Attestations Scribe Attestion: 08/16/17 00:19 Documentation prepared by Clint Henriquez, acting as adjunct faculty for medical terminology for Eloisa Alfonso MD/DO. <Clint Henriquez - Last Filed: 08/16/17 01:11> - Discharge Dispostion Admit: Yes <Eloisa Alfonso - Last Filed: 08/16/17 02:35> Diagnosis at time of Disposition: ILD (interstitial lung disease), Acute exacerbation of chronic obstructive bronchitis, Generalized weakness
[2017-08-15 23:49] LABS: ALBUMIN 2.8 g/dl (3.4-5.0); ANION GAP 13 (8-16); BILIRUBIN,TOTAL 0.5 mg/dL (0.2-1.0); BLOOD UREA NITROGEN 37 mg/dL (7-18); CALCIUM 9.2 mg/dL (8.5-10.1); CHLORIDE 99 mmol/L (98-107); CO2 29 mmol/L (21-32); CREATININE 1.6 mg/dL (0.55-1.02); GLUCOSE,RANDOM 113 mg/dL (74-106); POTASSIUM 3.4 mmol/L (3.5-5.1); SGOT/AST 18 U/L (15-37); SGPT/ALT 7 U/L (12-78); SODIUM 141 mmol/L (136-145); TOT PROT 7.3 g/dl (6.4-8.2)
[2017-08-15 23:52] LABS: ALK PHOS 112 U/L (45-117)
[2017-08-16] MEDS ORDERED: ALBUTEROL SO4 2.5/IPRATROPIUM 0.5 INH SOL 3 ML VIAL.NEB. NEB ONE ×2 (00:27→00:31)
[2017-08-16] MEDS ORDERED: POTASSIUM CHLORIDE TABS 20 MEQ TABLET.ER (FP) PO ONE ×2 (00:31→01:01)
[2017-08-16 00:49] LABS: URINE APPEARANCE CLEAR; URINE BILIRUBIN NEGATIVE (NEGATIVE); URINE BLOOD NEGATIVE (NEGATIVE); URINE COLOR YELLOW; URINE GLUCOSE (UA) NEGATIVE (NEGATIVE); URINE KETONE TRACE (NEGATIVE); URINE LEUK ESTERASE NEGATIVE (NEGATIVE); URINE NITRITE NEGATIVE (NEGATIVE); URINE PROTEIN NEGATIVE (NEGATIVE); URINE UROBILINOGEN NEGATIVE mg/dL (0.2-1.0)
[2017-08-16] MEDS ORDERED: methylPREDNISolone NA SUCC 125 MG/2 ML VIAL IVPB ONE (01:10)
[2017-08-16] MEDS ORDERED: methylPREDNISolone NA SUCC 125 MG/2 ML VIAL ONE (01:24)
[2017-08-16] MEDS: ALBUTEROL SO4 0.083% IH SOL 2.5 MG/3 ML VIAL.NEB. NEB SCH ×4 (06:46→23:21)
--- NOTE | 2017-08-16 08:42 | HP ---
Admitting History and Physical - Primary Care Physician PCP: Raysa Davis - Admission Chief Complaint: weakness History of Present Illness: progressively worsening generalized weakness for the past 2 weeks baseline poor energy levels, mostly sedentary, dyspneic on minimal exertion may have recently finished abx course for resp.tract infection? 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 chronic cortical/subcortical small infarcts) Cardiovascular: Yes: CAD, HTN Pulmonary: Yes: COPD, Other (interstitial lung disease/ho MAC not tolerating RX ?aspergilloma on CT ) Gastrointestinal: Yes: Diverticulosis, Gastritis (H.pylori in 2010), Pancreatitis (Chronic pancreatitis/pancreas divisum s/p stents in past, none now ), Other (Superior mesenteric artery stenosis, celiac artery stenosis) ...: No Heme/Onc: Yes: Other (Left breast ca s/p lumpectomy/radiation/chemo) Musculoskeletal: Yes: Other (humerus fracture after a fall ) Rheumatology: Yes: Fibromyalgia, Other (Polymyalgia rheumatica. temporal artery biopsy on was not consistent with arteritis.) - Past Surgical History Past Surgical History: Yes: Appendectomy (at age 18), Hernia Repair (L inguinal 1983) - Smoking History Smoking history: Never smoked Have you smoked in the past 12 months: No Aproximately how many cigarettes per day: 0 - Alcohol/Substance Use Hx Alcohol Use: No - Social History ADL: Independent History of Recent Travel: No Home Medications - Allergies Allergies/Adverse Reactions: Allergies Allergy/AdvReac Type Severity Reaction Status Date / Time No Known Drug Allergies Allergy Verified 08/16/17 05:42 morphine AdvReac Mild N/V Verified 08/15/17 22:14 - Home Medications Home Medications: Ambulatory Orders Carbidopa/Levodopa *Cr* 25/100 [Sinemet *Cr* 25/100 -] 1 combo PO TIDCM #90 tab 04/20/17 Amlodipine Besylate [Norvasc -] 5 mg PO BID #60 tablet 04/29/17 Aspirin Coated [Ecotrin -] 81 mg PO DAILY #30 tablet 04/29/17 Pantoprazole Sodium [Protonix -] 40 mg PO DAILY #30 tab 04/29/17 Labetalol HCl [Normodyne -] 200 mg PO TID 05/16/17 Albuterol 0.083% Nebulizer Ester [Ventolin 0.083% Nebulizer Soln -] 1 amp NEB Q4H PRN #60 amp 05/27/17 Furosemide [Lasix -] 20 mg PO DAILY #30 tablet 05/27/17 Prednisone [Deltasone -] 20 mg PO DAILY #30 tablet 05/27/17 Family Disease History - Family Disease History Family Disease History: Other: Father ( of CVA in 90s, HTN), Brother (HTN, prostate ca), Sister (HTN), Daughter Review of Systems - Review of Systems Constitutional: reports: Lethargy, Loss of Appetite, Weakness Cardiovascular: reports: Shortness of Breath Respiratory: reports: Cough (yellow, green sputum), Exercise Intolerance, SOB on Exertion, Wheezing Gastrointestinal: reports: No Symptoms Genitourinary: reports: No Symptoms Musculoskeletal: reports: Muscle Weakness Neurological: reports: Headache, Tremors, Unsteady Gait, Weakness Psychiatric: reports: No Symptoms Physical Examination Vital Signs: Vital Signs Temperature 97.9 F 08/16/17 06:00 Pulse Rate 77 08/16/17 06:00 Respiratory Rate 20 08/16/17 06:00 Blood Pressure 141/74 08/16/17 06:00 O2 Sat by Pulse Oximetry (%) 94 L 08/16/17 01:39 Constitutional: Yes: Calm, Thin Eyes: Yes: Conjunctiva Clear HENT: Yes: Normocephalic Neck: Yes: Trachea Midline Cardiovascular: Yes: Regular Rate and Rhythm Respiratory: Yes: Regular, Rales (coarse bilateral scattered rales) Gastrointestinal: Yes: Normal Bowel Sounds, Soft Extremities: Yes: WNL Edema: No Peripheral Pulses WNL: Yes Neurological: Yes: Alert, Oriented, Tremors (resting and intentional) Psychiatric: Yes: WNL Labs: CBC, BMP 08/15/17 23:00 08/15/17 23:00 Imaging - Results Chest X-ray: Report Reviewed Problem List - Problems (1) Generalized weakness Code(s): R53.1 - WEAKNESS (2) ILD (interstitial lung disease) Code(s): J84.9 - INTERSTITIAL PULMONARY DISEASE, UNSPECIFIED (3) COPD (chronic obstructive pulmonary disease) Code(s): J44.9 - CHRONIC OBSTRUCTIVE PULMONARY DISEASE, UNSPECIFIED Qualifiers: COPD type: unspecified COPD Qualified Code(s): J44.9 - Chronic obstructive pulmonary disease, unspecified (4) History of polymyalgia rheumatica Code(s): Z87.39 - PERSONAL HISTORY OF DISEASES OF THE MS SYS AND CONN TISS (5) Dehydration Code(s): E86.0 - DEHYDRATION (6) Hypertension Code(s): I10 - ESSENTIAL (PRIMARY) HYPERTENSION Qualifiers: Hypertension type: essential hypertension Qualified Code(s): I10 - Essential (primary) hypertension Assessment/Plan generalized weakness likely multifactorial due to ILD, PArkinson's, PMR mild dehydration r/o infection check sputum culture CT chest iv steroids rheum/pulm/ID and neuro f/up will be requested GI/DVT prophylaxis Physical therapy received iv hydration in er
[2017-08-16] MEDS: methylPREDNISolone NA SUCC 125 MG/2 ML VIAL IVPUSH SCH ×2 (09:37→17:44)
[2017-08-16] MEDS: PANTOPRAZOLE 40 MG TABLET (FP) PO SCH (09:38)
[2017-08-16] MEDS: ASPIRIN COATED 81 MG TABLET.EC PO SCH (09:38)
[2017-08-16] MEDS: amLODIPine BESYLATE 5 MG TABLET (FP) PO SCH ×2 (09:38→21:22)
--- NOTE | 2017-08-16 13:16 | CON.PULM ---
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 As per patient's patient began experiencing general weakness suddenly, showing no signs of subsiding. He reports patient has been tolerating liquids but states she has been experiencing decreased appetite. reports patient experienced left sided lung pain 1 week ago but is unsure if it is related to current symptoms. 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 chronic cortical/subcortical small infarcts temporal arteritis) Cardio/Vascular: Yes: CAD, HTN Pulmonary: Yes: COPD, Other (interstitial lung disease/ho MAC not tolerating RX ?aspergilloma on CT ) Gastrointestinal: Yes: Diverticulosis, Gastritis (H.pylori in 2010), Pancreatitis (Chronic pancreatitis/pancreas divisum s/p stents in past, none now ), Other (Superior mesenteric artery stenosis, celiac artery stenosis) Hepatobiliary: No: Cirrhosis Reproductive: Yes: Postmenopausal ...: No Heme/Onc: Yes: Anemia Psych: No: Addictions Musculoskeletal: Yes: Other (humerus fracture after a fall ) Rheumatology: Yes: Fibromyalgia, Other (Polymyalgia rheumatica. temporal artery biopsy on was not consistent with arteritis.) - Past Surgical History Past Surgical History: Yes: Appendectomy (at age 18), Hernia Repair (L inguinal 1983) - Alcohol/Substance Use Hx Alcohol Use: No - Smoking History Smoking history: Never smoked Have you smoked in the past 12 months: No Aproximately how many cigarettes per day: 0 - Social History Usual Living Arrangement: With Spouse ADL: Independent History of Recent Travel: No Home Medications - Allergies Allergies/Adverse Reactions: Allergies Allergy/AdvReac Type Severity Reaction Status Date / Time No Known Drug Allergies Allergy Verified 08/16/17 05:42 morphine AdvReac Mild N/V Verified 08/15/17 22:14 - Home Medications Home Medications: Ambulatory Orders Carbidopa/Levodopa *Cr* 25/100 [Sinemet *Cr* 25/100 -] 1 combo PO TIDCM #90 tab 04/20/17 Amlodipine Besylate [Norvasc -] 5 mg PO BID #60 tablet 04/29/17 Aspirin Coated [Ecotrin -] 81 mg PO DAILY #30 tablet 04/29/17 Pantoprazole Sodium [Protonix -] 40 mg PO DAILY #30 tab 04/29/17 Labetalol HCl [Normodyne -] 200 mg PO TID 05/16/17 Albuterol 0.083% Nebulizer Ester [Ventolin 0.083% Nebulizer Soln -] 1 amp NEB Q4H PRN #60 amp 05/27/17 Furosemide [Lasix -] 20 mg PO DAILY #30 tablet 05/27/17 Prednisone [Deltasone -] 20 mg PO DAILY #30 tablet 05/27/17 Family Disease History - Family Disease History Family Disease History: Other: Father ( of CVA in 90s, HTN), Brother (HTN, prostate ca), Sister (HTN), Daughter Review of Systems Unable to obtain ROS, reason: poor informant Physical Exam Vital Sings: Vital Signs Temperature 98.2 F 08/16/17 08:42 Pulse Rate 98 H 08/16/17 08:42 Respiratory Rate 20 08/16/17 08:42 Blood Pressure 146/70 08/16/17 08:42 O2 Sat by Pulse Oximetry (%) 96 08/16/17 09:00 Constitutional: Yes: Anxious, Mild Distress, Pallor Eyes: Yes: EOM Intact HENT: Yes: Normocephalic Neck: Yes: Trachea Midline Cardiovascular: Yes: Regular Rate and Rhythm, S1, S2 Respiratory: Yes: Poor Air Entry, Rhonchi Gastrointestinal: Yes: Soft Musculoskeletal: Yes: Muscle Weakness Edema: No Neurological: Yes: Alert, Lethargy, Pre-Existing Deficit, Tremors Labs: CBC, BMP 08/15/17 23:00 08/15/17 23:00 rest reviewed Imaging - Results Chest X-ray: Report Reviewed, Image Reviewed Cat Scan: Report Reviewed, Image Reviewed EKG: Report Reviewed, Image Reviewed Problem List - Problems (1) Breast CA Code(s): C50.919 - MALIGNANT NEOPLASM OF UNSP SITE OF UNSPECIFIED FEMALE BREAST (2) Acute exacerbation of chronic obstructive bronchitis Code(s): J44.1 - CHRONIC OBSTRUCTIVE PULMONARY DISEASE W (ACUTE) EXACERBATION (3) Generalized weakness Code(s): R53.1 - WEAKNESS (4) Hypertension Code(s): I10 - ESSENTIAL (PRIMARY) HYPERTENSION Qualifiers: Hypertension type: essential hypertension Qualified Code(s): I10 - Essential (primary) hypertension (5) ILD (interstitial lung disease) Code(s): J84.9 - INTERSTITIAL PULMONARY DISEASE, UNSPECIFIED (6) Acute exacerbation of bronchiectasis Code(s): J47.1 - BRONCHIECTASIS WITH (ACUTE) EXACERBATION (7) Mycobacteria, atypical Code(s): A31.9 - MYCOBACTERIAL INFECTION, UNSPECIFIED (8) Cavitary lesion of lung Code(s): J98.4 - OTHER DISORDERS OF LUNG Assessment/Plan CHEST PT/O2/BRONCHODILATORS/TRIAL OF STEROIDS/SPUTUM FUNGAL CULTURE/GRAM STAIN CONSIDER EMPIRIC TRIAL OF ANTIBIOTICS ASPIRATION PRECAUTIONS/SWALLOW EVAL IF NOT PREVIOUSLY DONE SUGGEST NEURO RE-EVAL/CONTINUE [facility] Emerald CARRANZA MD
--- NOTE | 2017-08-16 13:18 | EKG ---
Test Reason : Blood Pressure : / mmHG Vent. Rate : 093 BPM Atrial Rate : 093 BPM P-R Int : 148 ms QRS Dur : 104 ms QT Int : 400 ms P-R-T Axes : 074 -23 117 degrees QTc Int : 497 ms SINUS RHYTHM WITH PREMATURE ATRIAL COMPLEXES NONSPECIFIC ST AND T WAVE ABNORMALITY PROLONGED QT ABNORMAL ECG WHEN COMPARED WITH ECG OF 30-MAY-2017 21:22, PREMATURE ATRIAL COMPLEXES ARE NOW PRESENT CRITERIA FOR INFERIOR INFARCT ARE NO LONGER PRESENT NONSPECIFIC T WAVE ABNORMALITY NO LONGER EVIDENT IN INFERIOR LEADS NONSPECIFIC T WAVE ABNORMALITY NOW EVIDENT IN LATERAL LEADS Confirmed by RAIN LLAMAS MD ([id number]) on 08/16/2017 1:18:20 PM Referred By: Confirmed By:RAIN LLAMAS MD
[2017-08-16] MEDS ORDERED: LEVOFLOXACIN 500 MG IVPB 500 MG/100 ML BAG IVPB ONE (13:40)
--- NOTE | 2017-08-16 14:38 | PN ---
Progress Note (short form) - Note Progress Note: ID consult dictated imp/reccd 76 year old female with PD, COPD on prednisone, extensive bronchiectasis, last hospitalized in May 2017 with pneumonia- sputum culture positive for pseudomonas, history of pulmonary MAC- didnot tolerate treatment treated 2 weeks ago by pmd with zpak, now with increased weakness and fatigue, poor appetite, increased cough yellow, no hemoptysis ct scan reviewed, stable SHARATH/RML cavities c/w aspergilloma, extensive bronchiectasis with new infiltrate RLL RLL pneumonia- extensive bronchiectasis-prior pseudomonas suggest cultures, legionella urinary antigen sputum culture fungal culture zosyn stable cavitary disease- ?aspergilloma, will order fungal culture and aspergillus IgG Problem List - Problems (1) Pneumonia Code(s): J18.9 - PNEUMONIA, UNSPECIFIED ORGANISM (2) Bronchiectasis Code(s): J47.9 - BRONCHIECTASIS, UNCOMPLICATED (3) Aspergilloma Code(s): B44.9 - ASPERGILLOSIS, UNSPECIFIED
--- NOTE | 2017-08-16 15:51 | CONS ---
DATE OF CONSULTATION: DATE OF DICTATION: 08/16/2017 REQUESTED BY: Dr. Helton HISTORY OF PRESENT ILLNESS: This is a 76-year-old woman with a history of Parkinson disease. She has a history as well of fibromyalgia. She has a history of interstitial lung disease and MAC. Has not tolerated treatment. Question of aspergilloma on CAT scan in May 2017 when she was hospitalized with pneumonia. Sputum at that time few Pseudomonas. She was treated with cefepime followed by oral ciprofloxacin. She most recently was treated with Zithromax 2 weeks ago when she presented to her doctor complaining of more cough. She had some initial improvement. Then her symptoms recurred. She had weakness, decreased appetite, increased shortness of breath and cough and she presented with these complaints. She denies any fevers. Overall has been declining over the last 2 years with combined weight loss, weakness, but she does report in the last 2 weeks she has been more fatigued with more cough than usual. She was seen by Pulmonary who ordered a CAT scan of her chest. I reviewed the CAT scan with Radiology. She has extensive bronchiectasis. She has new right basilar infiltrate and she has chronic cavitary disease that appears unchanged from CAT scan in May. She is maintained on prednisone as an outpatient. She takes 20 mg daily. PAST MEDICAL HISTORY: Notable for chronic headaches. She was recently diagnosed with Parkinson disease. She has history of coronary artery disease, hypertension, COPD, interstitial lung disease. She has had MAC diagnosed by bronchoscopy but has been unable to tolerate treatment. Diverticulosis, gastritis, H pylori, pancreatitis. She has pancreas divisum status post stents in the past. She has a history of superior mesenteric artery stenosis, celiac artery stenosis, left breast cancer, status post lumpectomy, radiation, and chemotherapy. She has a history of a humerus fracture after a fall in March of this year as well as fibromyalgia. SURGICAL HISTORY: Notable for appendectomy and hernia repair. SOCIAL HISTORY: She is independent. She lives at home. There is no history of any cigarette use. ALLERGIES: She is allergic to MORPHINE. MEDICATIONS: At home include carbidopa-levodopa, amlodipine, aspirin, Protonix, labetalol, Ventolin nebulizer, Lasix and prednisone. FAMILY HISTORY: Notable for CVA and hypertension in her father, brother with hypertension, prostate cancer, sister with hypertension. REVIEW OF SYSTEMS: Notable for loss of appetite, weakness, lethargy, cough with yellow-green sputum. She has no hemoptysis and she has no diarrhea or dysuria. PHYSICAL EXAMINATION: General: She is a weak-appearing woman. She has some involuntary mouth movements and cogwheeling. Vital Signs: Temperature is 98.2, pulse of 69, blood pressure is 146/70, respiratory rate is 20, she is saturating 96% on 2 L, she weighs 121 pounds. HEENT: She is normocephalic. Her eyes are anicteric. She has a tremor and involuntary mouth movements. She has no thrush or pharyngitis. Neck: Supple. Lungs: Have crackles at both bases. Heart: Regular rate and rhythm. Abdomen: Soft, nontender. Extremities: Without edema. LABORATORIES: Notable for a white count of 7.4, hemoglobin 10.7, platelets of 371. BUN is 37 and creatinine is 1.6. LFTs are normal. CRP is 9.9. Her urinalysis is negative. Prior testing included a galactomannan antigen in May that was negative and a beta 1, 3 glucan that was negative as well. Cultures from the last admission grew a Pseudomonas in the sputum. ASSESSMENT: 1. In summary, this is an elderly woman on chronic prednisone with extensive bronchiectasis with history of pulmonary mycobacterium avium complex, did not tolerate treatment, with stable cavitary disease consistent radiographically with aspergilloma, recently treated with a Z-Todd, now with computed axial tomography evidence of a new right lower lobe pneumonia. I would suggest we obtain blood cultures, Legionella urinary antigen, sputum culture, fungal culture. Treat her with Zosyn to cover both community-acquired pneumonia as well as Pseudomonas. 2. 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 Will order fungal culture and aspergillus IgG. 3. History of chronic obstructive pulmonary disease. 4. Chronic bronchiectasis. Further recommendations to follow based on her clinical course. ALONSO LEMOS M.D. [id number]
--- NOTE | 2017-08-16 18:09 | CONSULT ---
Consult - text type - Consultation Consultation Note: NEUROLOGY CONSULTATION is greatly appreciated: This 76 yo RH woman with h/o HTN, Breast CA, Lung CA, Bronchiectasis is well-known to me after 3 years of progressive tremors c/w Parkinson's disease. The complex part is a h/o Polymyalgia Rheumatica and Temporal arteritis (Bx neg ) for which she has received steroids since 2016.Headaches responded to prednisone in the past and Left monocular visual loss (04/26/17) responded to IV medrol. Seen by me last fall with c/o positional lightheaded c/w PD-related dysautonomia. Now admitted with weakness, SOB, and Chest X-Ray with pleural and cavitary disease sugestive of Aspirgillosis. No c/o headache or visual loss. EXAM: Thin. No bruits. In NAD Mild OMS Coarse, rhythmic jaw tremor. Coarse rest tremor (R>>L) with cogwheel rigidity No dystaxia Normal vibration Flexed, shuffling, retropulsive, unsteady. IMP: 1. Parkinson's disease 2. Probable orthostatic hypotension due to dysautonomia 3. Temporal arteritis and long-term steroid Rx. SUGGEST: Check orthostatic BP's D/C amlodipine. Check ESR, CRP- If normal, would begin to taper steroids PT for gait with walker. Continue Sinemet CR 25/100 but please give at 7, 12, 5. If no othostatic BP changes, I would increase L-Dopa to 1 1/2 (ie : 37.5/150) TID at 7, 12, 5) Thank you very much, Lino Hampton MD
[2017-08-17] MEDS: methylPREDNISolone NA SUCC 125 MG/2 ML VIAL IVPUSH SCH ×2 (01:46→10:47)
[2017-08-17] MEDS: ALBUTEROL SO4 0.083% IH SOL 2.5 MG/3 ML VIAL.NEB. NEB SCH ×4 (06:31→23:12)
--- NOTE | 2017-08-17 08:25 | PN ---
Progress Note (short form) - Note Progress Note: no new complaints has productive cough increased confusion noted this am CT noted possible worsening pneumonia Vital Signs Period Temp Pulse Resp BP Sys/Garcia Pulse Ox Last 24 Hr 97.3 F-98.7 F 69-111 18-22 95-147/61-84 96-97 S1S2 RRR Lungs scattered coarse rales no edema tremor present IMp ILD +- Pneumonia Parkinson's ds. PMR HTN with orthostatic features iv steroids iv abx f/up cultures physical therpay consults appreciated Problem List - Problems (1) Generalized weakness Code(s): R53.1 - WEAKNESS (2) ILD (interstitial lung disease) Code(s): J84.9 - INTERSTITIAL PULMONARY DISEASE, UNSPECIFIED (3) COPD (chronic obstructive pulmonary disease) Code(s): J44.9 - CHRONIC OBSTRUCTIVE PULMONARY DISEASE, UNSPECIFIED Qualifiers: COPD type: unspecified COPD Qualified Code(s): J44.9 - Chronic obstructive pulmonary disease, unspecified (4) History of polymyalgia rheumatica Code(s): Z87.39 - PERSONAL HISTORY OF DISEASES OF THE MS SYS AND CONN TISS (5) Dehydration Code(s): E86.0 - DEHYDRATION (6) Hypertension Code(s): I10 - ESSENTIAL (PRIMARY) HYPERTENSION Qualifiers: Hypertension type: essential hypertension Qualified Code(s): I10 - Essential (primary) hypertension
--- NOTE | 2017-08-17 09:52 | PN ---
Progress Note, Physician Chief Complaint: Subjective improvement Milenasyn NO fever - Current Medication List Current Medications: Active Medications Albuterol Sulfate (Ventolin 0.083% Nebulizer Soln -) 1 amp NEB QIDR [facility] Last Admin: 08/17/17 06:31 Dose: Not Given Albuterol Sulfate (Ventolin 0.083% Nebulizer Soln -) 1 amp NEB Q4H PRN PRN Reason: SHORT OF BREATH/WHEEZING Amlodipine Besylate (Norvasc -) 5 mg PO BID [facility] Last Admin: 08/16/17 21:22 Dose: 5 mg Aspirin (Ecotrin -) 81 mg PO DAILY [facility] Last Admin: 08/16/17 09:38 Dose: 81 mg Carbidopa/Levodopa (Sinemet *Cr* 25/100 -) 1 combo PO TIDCM [facility] Last Admin: 08/17/17 08:15 Dose: 1 combo Piperacillin Sod/Tazobactam (Sod 3.375 gm/ Dextrose) 100 mls @ 200 mls/hr IVPB Q8H-IV [facility] PRN Reason: Protocol Methylprednisolone Sodium Succinate (Solu-Medrol -) 60 mg IVPUSH Q8H-IV [facility] Last Admin: 08/17/17 01:46 Dose: 60 mg Pantoprazole Sodium (Protonix -) 40 mg PO DAILY [facility] Last Admin: 08/16/17 09:38 Dose: 40 mg - Objective Vital Signs: Vital Signs Temperature 97.2 F L 08/17/17 08:36 Pulse Rate 106 H 08/17/17 08:36 Respiratory Rate 20 08/17/17 08:36 Blood Pressure 136/77 08/17/17 08:36 O2 Sat by Pulse Oximetry (%) 97 08/16/17 22:00 Constitutional: Yes: No Distress Neck: Yes: WNL, Supple Cardiovascular: Yes: Tachycardia, S1, S2. No: Murmur Respiratory: Yes: WNL, Regular, CTA Bilaterally, Rales Gastrointestinal: Yes: WNL, Normal Bowel Sounds, Soft. No: Tenderness, Tenderness, Epigastrium Edema: No Labs: CBC, BMP 08/15/17 23:00 08/15/17 23:00 INR, PTT INR 1.04 (0.82-1.09) 08/15/17 23:00 Assessment/Plan Microbiology Laboratory Tests 08/15/17 08/15/17 08/16/17 23:00 23:00 16:25 WBC 7.4 RBC 3.87 Hct 33.5 Plt Count 371 D BUN 37 H Aspergillus flavus Ab Pending Aspergill fumigatus Ab Pending Aspergillus niger Ab Pending Assessment Severe bronchiectasis with colonization with MAC Plan Continue Zosyn short cource Not sure we are simply not dealing with severe bronchiectasis with colonization MAC. Certainly nothing specific to point to apergilloma ( chronic pulmonary aspergillomas)
[2017-08-17] MEDS ORDERED: PIPERACILLIN/TAZOB 3.375 GM 3.375 GM in DEXTROSE 5%-WATER - 100 ML IVPB SCH (10:00)
[2017-08-17] MEDS: ALBUTEROL SO4 0.083% IH SOL 2.5 MG/3 ML VIAL.NEB. NEB PRN (10:12)
[2017-08-17] MEDS: PANTOPRAZOLE 40 MG TABLET (FP) PO SCH (10:48)
[2017-08-17] MEDS: ASPIRIN COATED 81 MG TABLET.EC PO SCH (10:48)
[2017-08-17] MEDS: amLODIPine BESYLATE 5 MG TABLET (FP) PO SCH ×2 (10:48→21:06)
[2017-08-17] MEDS: PIPERACILLIN/TAZOB 3.375 GM 3.375 GM in DEXTROSE 5%-WATER - 100 ML IVPB SCH ×2 (11:25→17:25)
--- NOTE | 2017-08-17 12:07 | PN ---
Progress Note (short form) - Note Progress Note: PULMONARY APPEARS MODERATELY IMPROVED THIS AM REMAINS AFEBRILE PALE SCATTERED RHONCHI S1S2 BS+ TREMORS RIGHT UPPER EXT/THIAGO-ORAL LABS/CT/MEDS/NOTES/MICRO REVIEWED - Problems (1) Breast CA Code(s): C50.919 - MALIGNANT NEOPLASM OF UNSP SITE OF UNSPECIFIED FEMALE BREAST (2) Acute exacerbation of chronic obstructive bronchitis Code(s): J44.1 - CHRONIC OBSTRUCTIVE PULMONARY DISEASE W (ACUTE) EXACERBATION (3) Generalized weakness Code(s): R53.1 - WEAKNESS (4) Hypertension Code(s): I10 - ESSENTIAL (PRIMARY) HYPERTENSION Qualifiers: Hypertension type: essential hypertension Qualified Code(s): I10 - Essential (primary) hypertension (5) ILD (interstitial lung disease) Code(s): J84.9 - INTERSTITIAL PULMONARY DISEASE, UNSPECIFIED (6) Acute exacerbation of bronchiectasis Code(s): J47.1 - BRONCHIECTASIS WITH (ACUTE) EXACERBATION (7) Mycobacteria, atypical Code(s): A31.9 - MYCOBACTERIAL INFECTION, UNSPECIFIED (8) Cavitary lesion of lung Code(s): J98.4 - OTHER DISORDERS OF LUNG Assessment/Plan CHEST PT/O2/BRONCHODILATORS/TRIAL OF STEROIDS/SPUTUM FUNGAL CULTURE/GRAM STAIN PENDING ANTIBIOTICS PER ID ASPIRATION PRECAUTIONS/SWALLOW EVAL IF NOT PREVIOUSLY DONE SUGGEST NEURO RE-EVAL/CONTINUE [facility] Emerald CARRANZA MD Problem List - Problems (1) Breast CA Code(s): C50.919 - MALIGNANT NEOPLASM OF UNSP SITE OF UNSPECIFIED FEMALE BREAST (2) Acute exacerbation of chronic obstructive bronchitis Code(s): J44.1 - CHRONIC OBSTRUCTIVE PULMONARY DISEASE W (ACUTE) EXACERBATION (3) Generalized weakness Code(s): R53.1 - WEAKNESS (4) Hypertension Code(s): I10 - ESSENTIAL (PRIMARY) HYPERTENSION Qualifiers: Hypertension type: essential hypertension Qualified Code(s): I10 - Essential (primary) hypertension (5) ILD (interstitial lung disease) Code(s): J84.9 - INTERSTITIAL PULMONARY DISEASE, UNSPECIFIED (6) Acute exacerbation of bronchiectasis Code(s): J47.1 - BRONCHIECTASIS WITH (ACUTE) EXACERBATION (7) Mycobacteria, atypical Code(s): A31.9 - MYCOBACTERIAL INFECTION, UNSPECIFIED (8) Cavitary lesion of lung Code(s): J98.4 - OTHER DISORDERS OF LUNG
[2017-08-17] MEDS: methylPREDNISolone NA SUCC 40 MG/1 ML VIAL IVPUSH SCH (17:25)
[2017-08-18] MEDS ORDERED: PT OWN MED DRAWER 7, Y5N ONE ×2 (01:37→20:48)
[2017-08-18] MEDS: methylPREDNISolone NA SUCC 40 MG/1 ML VIAL IVPUSH SCH ×3 (01:41→21:27)
[2017-08-18] MEDS: PIPERACILLIN/TAZOB 3.375 GM 3.375 GM in DEXTROSE 5%-WATER - 100 ML IVPB SCH (01:41)
[2017-08-18] MEDS ORDERED: PIPERACIL/TAZOB 3.375 GM 3.375 GM/50 ML PREMIX IVPB SCH (02:00)
[2017-08-18] MEDS: ALBUTEROL SO4 0.083% IH SOL 2.5 MG/3 ML VIAL.NEB. NEB SCH ×4 (06:36→23:07)
--- NOTE | 2017-08-18 08:30 | PN ---
Progress Note (short form) - Note Progress Note: ID Remains on Zosyn Discussed with PMD Remains stable admitted with weakness with minimal to no respiratory complaints Selected Entries 08/17/17 22:00 Temperature 97.8 F Pulse Rate 103 H Respiratory 22 Rate Blood Pressure 137/78 Exam weak female bilateral rales Microbiology 08/16/17 18:25 Urine For Antigen Detection Legionella Antigen - Final 08/16/17 18:25 Urine For Antigen Detection Streptococcus pneumoniae Antigen (M - Final 08/16/17 00:30 Urine - Urine - Catheterized Urine Culture - Final NO GROWTH OBTAINED 08/16/17 21:30 Sputum - Expectorated MATTHEW Preparation - Preliminary 08/16/17 21:30 Sputum - Expectorated Fungal Culture - Preliminary 08/16/17 16:25 Blood - Peripheral Venous Blood Culture - Preliminary NO GROWTH OBTAINED AFTER 24 HOURS, INCUBATION TO CONTINUE FOR 4 DAYS. 08/16/17 16:25 Blood - Peripheral Venous Blood Culture - Preliminary NO GROWTH OBTAINED AFTER 24 HOURS, INCUBATION TO CONTINUE FOR 4 DAYS. Laboratory Tests 08/15/17 08/15/17 08/16/17 23:00 23:00 16:25 WBC 7.4 Hgb 10.7 Plt Count 371 D BUN 37 H Creatinine 1.6 H D Creat Clearance w eGFR 31.26 Aspergillus flavus Ab Pending Aspergill fumigatus Ab Pending Aspergillus niger Ab Pending Assessment Bronchiectasis unclear if any exacerbation History if MAC Plan Change to po therapy ciproflox 250mg daily 5 days Anil Hinojosa
--- NOTE | 2017-08-18 08:49 | PN ---
Progress Note (short form) - Note Progress Note: no new complaints has productive cough increased confusion noted this am-apparently clears by afternoon Vital Signs Period Temp Pulse Resp BP Sys/Garcia Pulse Ox Last 24 Hr 97.8 F-98.2 F 91-103 20-22 135-137/59-78 90-96 S1S2 RRR Lungs scattered coarse rales no edema tremor present, quite severe refused labs this am IMp ILD +- Pneumonia? Parkinson's ds. PMR HTN with orthostatic features iv steroids switch to po abx f/up cultures physical therpay consults appreciated orthostatic BP, and increase sinemet if possible Problem List - Problems (1) Generalized weakness Code(s): R53.1 - WEAKNESS (2) ILD (interstitial lung disease) Code(s): J84.9 - INTERSTITIAL PULMONARY DISEASE, UNSPECIFIED (3) COPD (chronic obstructive pulmonary disease) Code(s): J44.9 - CHRONIC OBSTRUCTIVE PULMONARY DISEASE, UNSPECIFIED Qualifiers: COPD type: unspecified COPD Qualified Code(s): J44.9 - Chronic obstructive pulmonary disease, unspecified (4) History of polymyalgia rheumatica Code(s): Z87.39 - PERSONAL HISTORY OF DISEASES OF THE MS SYS AND CONN TISS (5) Dehydration Code(s): E86.0 - DEHYDRATION (6) Hypertension Code(s): I10 - ESSENTIAL (PRIMARY) HYPERTENSION Qualifiers: Hypertension type: essential hypertension Qualified Code(s): I10 - Essential (primary) hypertension
[2017-08-18] MEDS: ASPIRIN COATED 81 MG TABLET.EC PO SCH (10:07)
[2017-08-18] MEDS: PANTOPRAZOLE 40 MG TABLET (FP) PO SCH (10:08)
[2017-08-18] MEDS: amLODIPine BESYLATE 5 MG TABLET (FP) PO SCH ×2 (10:08→21:26)
[2017-08-18] MEDS: CIPROFLOXACIN 250 MG TABLET (RESTRICTED TO ID) PO SCH ×2 (11:00→21:27)
[2017-08-18 13:08] LABS: BASO % 0.1 % (0-2.0); HEMATOCRIT 30.1 % (32.4-45.2); HEMOGLOBIN 9.4 GM/dL (10.7-15.3); LYMPH % 2.6 % (8-40); MCH 27.4 pg (25.7-33.7); MCHC 31.2 g/dl (32.0-36.0); MEAN CELL VOLUME 87.8 fl (80-96); MEAN PLT VOLUME 7.1 fl (7.5-11.1); NEUT % 91.3 % (42.8-82.8); PLATELET COUNT 307 K/MM3 (134-434); RBC 3.43 M/mm3 (3.60-5.2); RDW 17.7 % (11.6-15.6); WHITE BLOOD COUNT 6.8 K/mm3 (4.0-10.0)
[2017-08-18 13:37] LABS: ALBUMIN 2.5 g/dl (3.4-5.0); ALK PHOS 94 U/L (45-117); ANION GAP 7 (8-16); BILIRUBIN,TOTAL 0.5 mg/dL (0.2-1.0); BLOOD UREA NITROGEN 30 mg/dL (7-18); CALCIUM 8.5 mg/dL (8.5-10.1); CHLORIDE 103 mmol/L (98-107); CO2 30 mmol/L (21-32); CREATININE 1.4 mg/dL (0.55-1.02); GLUCOSE,RANDOM 240 mg/dL (74-106); POTASSIUM 3.4 mmol/L (3.5-5.1); SGOT/AST 28 U/L (15-37); SGPT/ALT 9 U/L (12-78); SODIUM 140 mmol/L (136-145); TOT PROT 6.3 g/dl (6.4-8.2)
--- NOTE | 2017-08-18 15:02 | PN ---
Progress Note, Physician History of Present Illness: PULMONARY ALERT,COMFORTABLE,-RESP DISTRESS. - Current Medication List Current Medications: Active Medications Albuterol Sulfate (Ventolin 0.083% Nebulizer Soln -) 1 amp NEB QIDR [facility] Last Admin: 08/18/17 11:02 Dose: 1 amp Albuterol Sulfate (Ventolin 0.083% Nebulizer Soln -) 1 amp NEB Q4H PRN PRN Reason: SHORT OF BREATH/WHEEZING Last Admin: 08/17/17 10:12 Dose: 1 amp Amlodipine Besylate (Norvasc -) 5 mg PO BID [facility] Last Admin: 08/18/17 10:08 Dose: 5 mg Aspirin (Ecotrin -) 81 mg PO DAILY [facility] Last Admin: 08/18/17 10:07 Dose: 81 mg Carbidopa/Levodopa (Sinemet *Cr* 25/100 -) 1 combo PO TIDCM [facility] Last Admin: 08/18/17 11:50 Dose: 1 combo Ciprofloxacin (Cipro (Restricted To Id)) 250 mg PO BID [facility] Last Admin: 08/18/17 11:00 Dose: 250 mg Methylprednisolone Sodium Succinate (Solu-Medrol -) 40 mg IVPUSH BID [facility] Last Admin: 08/18/17 10:07 Dose: 40 mg Pantoprazole Sodium (Protonix -) 40 mg PO DAILY [facility] Last Admin: 08/18/17 10:08 Dose: 40 mg - Objective Vital Signs: Vital Signs Temperature 98.0 F 08/18/17 14:37 Pulse Rate 102 H 08/18/17 14:37 Respiratory Rate 18 08/18/17 14:37 Blood Pressure 143/85 08/18/17 14:37 O2 Sat by Pulse Oximetry (%) 94 L 08/18/17 09:45 Constitutional: Yes: Well Nourished, Calm Eyes: Yes: WNL HENT: Yes: WNL Neck: Yes: WNL Cardiovascular: Yes: Regular Rate and Rhythm, S1, S2 Respiratory: Yes: Rhonchi (BILATERAL RHONCHI) Gastrointestinal: Yes: Normal Bowel Sounds, Soft Extremities: Yes: WNL Edema: No Labs: CBC, BMP 08/18/17 12:50 08/18/17 12:50 INR, PTT INR 1.04 (0.82-1.09) 08/15/17 23:00 Assessment/Plan Problems (1) Breast CA Code(s): C50.919 - MALIGNANT NEOPLASM OF UNSP SITE OF UNSPECIFIED FEMALE BREAST (2) Acute exacerbation of chronic obstructive bronchitis Code(s): J44.1 - CHRONIC OBSTRUCTIVE PULMONARY DISEASE W (ACUTE) EXACERBATION (3) Generalized weakness Code(s): R53.1 - WEAKNESS (4) Hypertension Code(s): I10 - ESSENTIAL (PRIMARY) HYPERTENSION Qualifiers: Hypertension type: essential hypertension Qualified Code(s): I10 - Essential (primary) hypertension (5) ILD (interstitial lung disease) Code(s): J84.9 - INTERSTITIAL PULMONARY DISEASE, UNSPECIFIED (6) Acute exacerbation of bronchiectasis Code(s): J47.1 - BRONCHIECTASIS WITH (ACUTE) EXACERBATION (7) Mycobacteria, atypical Code(s): A31.9 - MYCOBACTERIAL INFECTION, UNSPECIFIED (8) Cavitary lesion of lung Code(s): J98.4 - OTHER DISORDERS OF LUNG Assessment/Plan CHEST PT O2 BRONCHODILATORS STEROID taper ANTIBIOTICS DR HICKS Problem List - Problems (1) Breast CA Code(s): C50.919 - MALIGNANT NEOPLASM OF UNSP SITE OF UNSPECIFIED FEMALE BREAST (2) Acute exacerbation of chronic obstructive bronchitis Code(s): J44.1 - CHRONIC OBSTRUCTIVE PULMONARY DISEASE W (ACUTE) EXACERBATION (3) Generalized weakness Code(s): R53.1 - WEAKNESS (4) Hypertension Code(s): I10 - ESSENTIAL (PRIMARY) HYPERTENSION Qualifiers: Hypertension type: essential hypertension Qualified Code(s): I10 - Essential (primary) hypertension (5) ILD (interstitial lung disease) Code(s): J84.9 - INTERSTITIAL PULMONARY DISEASE, UNSPECIFIED (6) Acute exacerbation of bronchiectasis Code(s): J47.1 - BRONCHIECTASIS WITH (ACUTE) EXACERBATION (7) Mycobacteria, atypical Code(s): A31.9 - MYCOBACTERIAL INFECTION, UNSPECIFIED (8) Cavitary lesion of lung Code(s): J98.4 - OTHER DISORDERS OF LUNG
[2017-08-18 15:22] LABS: ERYTHROCYTE SEDIMENTATION RATE 97 mm/hr (0-30)
[2017-08-18] MEDS ORDERED: POTASSIUM CHLORIDE TABS 20 MEQ TABLET.ER (FP) PO ONE ×2 (18:15→18:45)
[2017-08-18] MEDS: ZOLPIDEM TARTRATE 5 MG TABLET PO PRN (22:56)
[2017-08-19] MEDS: ALBUTEROL SO4 0.083% IH SOL 2.5 MG/3 ML VIAL.NEB. NEB SCH ×4 (05:49→23:40)
[2017-08-19] MEDS: ASPIRIN COATED 81 MG TABLET.EC PO SCH (10:45)
[2017-08-19] MEDS: CIPROFLOXACIN 250 MG TABLET (RESTRICTED TO ID) PO SCH ×2 (10:45→21:08)
[2017-08-19] MEDS: amLODIPine BESYLATE 5 MG TABLET (FP) PO SCH ×2 (10:45→21:08)
[2017-08-19] MEDS: methylPREDNISolone NA SUCC 40 MG/1 ML VIAL IVPUSH SCH ×2 (10:46→21:08)
[2017-08-19] MEDS: PANTOPRAZOLE 40 MG TABLET (FP) PO SCH (10:46)
[2017-08-19] MEDS ORDERED: PT OWN MED DRAWER 7, Y5N ONE ×2 (11:02→20:35)
--- NOTE | 2017-08-19 13:31 | PN ---
Progress Note (short form) - Note Progress Note: feels better no new c/o vs CBC, BMP 08/18/17 12:50 08/18/17 12:50 Vital Signs Period Temp Pulse Resp BP Sys/Garcia Pulse Ox Last 24 Hr 97.7 F-98.3 F 92-102 - 141-143/76-85 94 S1S2 RRR Lungs scattered coarse rales no edema tremor present, quite severe refused labs this am IMp ILD +- Pneumonia? Parkinson's ds. PMR HTN with orthostatic features iv steroids switch to po abx f/up cultures physical therpay
--- NOTE | 2017-08-19 13:50 | PN ---
Progress Note, Physician History of Present Illness: PULMONARY ALERT,LESS CONGESTED ,+ COUGH - Current Medication List Current Medications: Active Medications Albuterol Sulfate (Ventolin 0.083% Nebulizer Soln -) 1 amp NEB QIDR [facility] 234 BEDS AT [facility] Last Admin: 08/19/17 11:28 Dose: 1 amp Albuterol Sulfate (Ventolin 0.083% Nebulizer Soln -) 1 amp NEB Q4H PRN PRN Reason: SHORT OF BREATH/WHEEZING Last Admin: 08/17/17 10:12 Dose: 1 amp Amlodipine Besylate (Norvasc -) 5 mg PO BID [facility] 234 B[facility]S [facility] Last Admin: 08/19/17 10:45 Dose: 5 mg Aspirin (Ecotrin -) 81 mg PO DAILY [facility] 234 B[facility]S [facility] Last Admin: 08/19/17 10:45 Dose: 81 mg Carbidopa/Levodopa (Sinemet *Cr* 25/100 -) 1 combo PO TIDCM [facility] 234 BEDS AT [facility] Last Admin: 08/19/17 08:44 Dose: 1 combo Ciprofloxacin (Cipro (Restricted To Id)) 250 mg PO BID [facility] 234 BEDS AT [facility] Last Admin: 08/19/17 10:45 Dose: 250 mg Methylprednisolone Sodium Succinate (Solu-Medrol -) 40 mg IVPUSH BID [facility] 234 BEDS AT [facility] Last Admin: 08/19/17 10:46 Dose: 40 mg Pantoprazole Sodium (Protonix -) 40 mg PO DAILY [facility] 234 BEDS AT [facility] Last Admin: 08/19/17 10:46 Dose: 40 mg Zolpidem Tartrate (Ambien -) 5 mg PO HS PRN PRN Reason: INSOMNIA Last Admin: 08/18/17 22:56 Dose: 5 mg - Objective Vital Signs: Vital Signs Temperature 98.3 F 08/18/17 21:30 Pulse Rate 92 H 08/18/17 21:30 Respiratory Rate 18 08/18/17 21:30 Blood Pressure 141/76 08/18/17 21:30 O2 Sat by Pulse Oximetry (%) 94 L 08/18/17 21:00 Constitutional: Yes: Well Nourished, Calm Eyes: Yes: WNL HENT: Yes: WNL Neck: Yes: WNL Cardiovascular: Yes: Regular Rate and Rhythm, S1, S2 Respiratory: Yes: Rales, Rhonchi (LILIAM RALES/RHONCHI) Gastrointestinal: Yes: Normal Bowel Sounds, Soft Extremities: Yes: WNL Edema: No Labs: CBC, BMP Assessment/Plan Problems (1) Breast CA Code(s): C50.919 - MALIGNANT NEOPLASM OF UNSP SITE OF UNSPECIFIED FEMALE BREAST (2) Acute exacerbation of chronic obstructive bronchitis Code(s): J44.1 - CHRONIC OBSTRUCTIVE PULMONARY DISEASE W (ACUTE) EXACERBATION (3) Generalized weakness Code(s): R53.1 - WEAKNESS (4) Hypertension Code(s): I10 - ESSENTIAL (PRIMARY) HYPERTENSION Qualifiers: Hypertension type: essential hypertension Qualified Code(s): I10 - Essential (primary) hypertension (5) ILD (interstitial lung disease) Code(s): J84.9 - INTERSTITIAL PULMONARY DISEASE, UNSPECIFIED (6) Acute exacerbation of bronchiectasis Code(s): J47.1 - BRONCHIECTASIS WITH (ACUTE) EXACERBATION (7) Mycobacteria, atypical Code(s): A31.9 - MYCOBACTERIAL INFECTION, UNSPECIFIED (8) Cavitary lesion of lung Code(s): J98.4 - OTHER DISORDERS OF LUNG Assessment/Plan CHEST PT O2 BRONCHODILATORS STEROIDS ANTIBIOTICS DR HICKS Problem List - Problems (1) Breast CA Code(s): C50.919 - MALIGNANT NEOPLASM OF UNSP SITE OF UNSPECIFIED FEMALE BREAST (2) Acute exacerbation of chronic obstructive bronchitis Code(s): J44.1 - CHRONIC OBSTRUCTIVE PULMONARY DISEASE W (ACUTE) EXACERBATION (3) Generalized weakness Code(s): R53.1 - WEAKNESS (4) Hypertension Code(s): I10 - ESSENTIAL (PRIMARY) HYPERTENSION Qualifiers: Hypertension type: essential hypertension Qualified Code(s): I10 - Essential (primary) hypertension (5) ILD (interstitial lung disease) Code(s): J84.9 - INTERSTITIAL PULMONARY DISEASE, UNSPECIFIED (6) Acute exacerbation of bronchiectasis Code(s): J47.1 - BRONCHIECTASIS WITH (ACUTE) EXACERBATION (7) Mycobacteria, atypical Code(s): A31.9 - MYCOBACTERIAL INFECTION, UNSPECIFIED (8) Cavitary lesion of lung Code(s): J98.4 - OTHER DISORDERS OF LUNG
[2017-08-19] MEDS: ZOLPIDEM TARTRATE 5 MG TABLET PO PRN (21:31)
[2017-08-20] MEDS: ALBUTEROL SO4 0.083% IH SOL 2.5 MG/3 ML VIAL.NEB. NEB SCH ×4 (06:25→23:03)
[2017-08-20] MEDS ORDERED: PT OWN MED DRAWER 7, Y5N ONE (10:18)
--- NOTE | 2017-08-20 10:26 | PN ---
Progress Note (short form) - Note Progress Note: feels better no new c/o vs Vital Signs Period Temp Pulse Resp BP Sys/Garcia Pulse Ox Last 24 Hr 97.4 F-98.6 F 99-104 18-20 145-157/71-87 93 S1S2 RRR Lungs scattered coarse rales no edema tremor present, quite severe refused labs this am IMp ILD +- Pneumonia? Parkinson's ds. PMR HTN with orthostatic features iv steroids switch to po abx physical therpay
[2017-08-20] MEDS: ASPIRIN COATED 81 MG TABLET.EC PO SCH (11:00)
[2017-08-20] MEDS: CIPROFLOXACIN 250 MG TABLET (RESTRICTED TO ID) PO SCH ×2 (11:00→22:41)
[2017-08-20] MEDS: amLODIPine BESYLATE 5 MG TABLET (FP) PO SCH ×2 (11:00→22:41)
[2017-08-20] MEDS: PANTOPRAZOLE 40 MG TABLET (FP) PO SCH (11:00)
[2017-08-20] MEDS: methylPREDNISolone NA SUCC 40 MG/1 ML VIAL IVPUSH SCH ×2 (11:12→22:42)
--- NOTE | 2017-08-20 14:07 | PN ---
Progress Note, Physician History of Present Illness: pulmonarey alert,feeling better,less cough,less dyspneic - Current Medication List Current Medications: Active Medications Albuterol Sulfate (Ventolin 0.083% Nebulizer Soln -) 1 amp NEB QIDR [facility] Last Admin: 08/20/17 12:00 Dose: 1 amp Albuterol Sulfate (Ventolin 0.083% Nebulizer Soln -) 1 amp NEB Q4H PRN PRN Reason: SHORT OF BREATH/WHEEZING Last Admin: 08/17/17 10:12 Dose: 1 amp Amlodipine Besylate (Norvasc -) 5 mg PO BID [facility] Last Admin: 08/20/17 11:00 Dose: 5 mg Aspirin (Ecotrin -) 81 mg PO DAILY [facility] Last Admin: 08/20/17 11:00 Dose: 81 mg Carbidopa/Levodopa (Sinemet *Cr* 25/100 -) 1 combo PO TIDCM [facility] Last Admin: 08/20/17 11:11 Dose: 1 combo Ciprofloxacin (Cipro (Restricted To Id)) 250 mg PO BID [facility] Last Admin: 08/20/17 11:00 Dose: 250 mg Methylprednisolone Sodium Succinate (Solu-Medrol -) 40 mg IVPUSH BID [facility] Last Admin: 08/20/17 11:12 Dose: 40 mg Pantoprazole Sodium (Protonix -) 40 mg PO DAILY [facility] Last Admin: 08/20/17 11:00 Dose: 40 mg Zolpidem Tartrate (Ambien -) 5 mg PO HS PRN PRN Reason: INSOMNIA Last Admin: 08/19/17 21:31 Dose: 5 mg - Objective Vital Signs: Vital Signs Temperature 98 F 08/20/17 05:39 Pulse Rate 99 H 08/20/17 05:39 Respiratory Rate 20 08/20/17 05:39 Blood Pressure 147/87 08/20/17 05:39 O2 Sat by Pulse Oximetry (%) 93 L 08/19/17 21:00 Constitutional: Yes: Well Nourished, Calm Eyes: Yes: WNL HENT: Yes: WNL Cardiovascular: Yes: Regular Rate and Rhythm, S1, S2 Respiratory: Yes: Rhonchi (bilateral rhonchi and coarse bs bilaterally) Extremities: Yes: WNL Edema: No Labs: CBC, BMP 08/18/17 12:50 Assessment/Plan Problems (1) Breast CA Code(s): C50.919 - MALIGNANT NEOPLASM OF UNSP SITE OF UNSPECIFIED FEMALE BREAST (2) Acute exacerbation of chronic obstructive bronchitis Code(s): J44.1 - CHRONIC OBSTRUCTIVE PULMONARY DISEASE W (ACUTE) EXACERBATION (3) Generalized weakness Code(s): R53.1 - WEAKNESS (4) Hypertension Code(s): I10 - ESSENTIAL (PRIMARY) HYPERTENSION Qualifiers: Hypertension type: essential hypertension Qualified Code(s): I10 - Essential (primary) hypertension (5) ILD (interstitial lung disease) Code(s): J84.9 - INTERSTITIAL PULMONARY DISEASE, UNSPECIFIED (6) Acute exacerbation of bronchiectasis Code(s): J47.1 - BRONCHIECTASIS WITH (ACUTE) EXACERBATION (7) Mycobacteria, atypical Code(s): A31.9 - MYCOBACTERIAL INFECTION, UNSPECIFIED (8) Cavitary lesion of lung Code(s): J98.4 - OTHER DISORDERS OF LUNG Assessment/Plan CHEST PT O2 BRONCHODILATORS STEROIDS SAME DOSE ANTIBIOTICS DR HICKS Problem List - Problems (1) Breast CA Code(s): C50.919 - MALIGNANT NEOPLASM OF UNSP SITE OF UNSPECIFIED FEMALE BREAST (2) Acute exacerbation of chronic obstructive bronchitis Code(s): J44.1 - CHRONIC OBSTRUCTIVE PULMONARY DISEASE W (ACUTE) EXACERBATION (3) Generalized weakness Code(s): R53.1 - WEAKNESS (4) Hypertension Code(s): I10 - ESSENTIAL (PRIMARY) HYPERTENSION Qualifiers: Hypertension type: essential hypertension Qualified Code(s): I10 - Essential (primary) hypertension (5) ILD (interstitial lung disease) Code(s): J84.9 - INTERSTITIAL PULMONARY DISEASE, UNSPECIFIED (6) Acute exacerbation of bronchiectasis Code(s): J47.1 - BRONCHIECTASIS WITH (ACUTE) EXACERBATION (7) Mycobacteria, atypical Code(s): A31.9 - MYCOBACTERIAL INFECTION, UNSPECIFIED (8) Cavitary lesion of lung Code(s): J98.4 - OTHER DISORDERS OF LUNG
[2017-08-20] MEDS: ZOLPIDEM TARTRATE 5 MG TABLET PO PRN (22:41)
--- NOTE | 2017-08-21 08:58 | DS ---
Physical Examination Vital Signs: Vital Signs Temperature 97.6 F 08/21/17 06:10 Pulse Rate 106 H 08/21/17 06:10 Respiratory Rate 20 08/21/17 06:10 Blood Pressure 151/96 08/21/17 06:10 O2 Sat by Pulse Oximetry (%) 90 L 08/20/17 21:00 Findings/Remarks: admitted for generalized weakness and fatigue CT chest showed possible pnaumonia vs. worsening bronchiectasis was seen by pulm. ID. neurology evaluation clinically improved with abx and iv steroids medically stable to dc home with VNS for PT finish abx course at home taper steroids as per rheum.as outpt Constitutional: Yes: Well Nourished, No Distress, Calm Eyes: Yes: Conjunctiva Clear HENT: Yes: Normocephalic, Thrush Neck: Yes: Trachea Midline Cardiovascular: Yes: Regular Rate and Rhythm Respiratory: Yes: Rales (coarse basal rales) Gastrointestinal: Yes: Normal Bowel Sounds, Soft Musculoskeletal: Yes: Muscle Weakness Edema: No Peripheral Pulses WNL: Yes Integumentary: Yes: Other (sacral decubitus) Neurological: Yes: Alert, Oriented, Tremors, Weakness Psychiatric: Yes: WNL Labs: CBC, BMP 08/18/17 12:50 08/18/17 12:50 Discharge Summary Reason For Visit: ACUTE EXCERBATION OF CHRONIC OBSTRUCTION BRON- Current Active Problems Acute exacerbation of chronic obstructive bronchitis (Acute) Aspergilloma (Acute) Breast CA (Acute) Bronchiectasis (Acute) Cavitary lesion of lung (Acute) Dehydration (Acute) Generalized weakness (Acute) Hypertension (Acute) ILD (interstitial lung disease) (Acute) Mycobacteria, atypical (Acute) Pneumonia (Acute) Condition: Guarded - Instructions Diet, Activity, Other Instructions: f/up with within 1 week f/up with , Referrals: Raysa Davis MD [Primary Care Provider] - Disposition: VNS/HOME HEALTH CARE - Home Medications Comprehensive Discharge Medication List: Ambulatory Orders Carbidopa/Levodopa *Cr* 25/100 [Sinemet *Cr* 25/100 -] 1 combo PO TIDCM #90 tab 04/20/17 Amlodipine Besylate [Norvasc -] 5 mg PO BID #60 tablet 04/29/17 Aspirin Coated [Ecotrin -] 81 mg PO DAILY #30 tablet 04/29/17 Pantoprazole Sodium [Protonix -] 40 mg PO DAILY #30 tab 04/29/17 Albuterol 0.083% Nebulizer Ester [Ventolin 0.083% Nebulizer Soln -] 1 amp NEB Q4H PRN #60 amp 05/27/17 Ciprofloxacin [Cipro -] 250 mg PO BID #6 tablet 08/21/17 Multivitamins [Multivit ([facility] Formulary)] 1 tab PO DAILY #30 tab 08/21/17 Nystatin Oral Suspension - [Nystatin Oral Susp 447173 Units/5 ML -] 500,000 units PO Q6HPO #500 ml 08/21/17 Prednisone [Deltasone -] 40 mg PO DAILY tablet 08/21/17
[2017-08-21] MEDS ORDERED: PT OWN MED DRAWER 7, Y5N ONE (10:12)
[2017-08-21] MEDS: amLODIPine BESYLATE 5 MG TABLET (FP) PO SCH ×2 (10:17→23:30)
[2017-08-21] MEDS: CIPROFLOXACIN 250 MG TABLET (RESTRICTED TO ID) PO SCH ×2 (10:17→22:35)
[2017-08-21] MEDS: MULTIVITAMINS (DAILY MVI) TABLET (FP) PO SCH (10:17)
[2017-08-21] MEDS: predniSONE 20 MG TABLET (UD) PO SCH (10:17)
[2017-08-21] MEDS: ASPIRIN COATED 81 MG TABLET.EC PO SCH (10:22)
[2017-08-21] MEDS: PANTOPRAZOLE 40 MG TABLET (FP) PO SCH (10:22)
[2017-08-21] MEDS: NYSTATIN 500,000 UNITS/5 ML SUSPENSION PO SCH ×2 (12:10→17:21)
[2017-08-21 13:14] LABS: HEMATOCRIT 32.4 % (32.4-45.2); MCH 27.4 pg (25.7-33.7); MCHC 30.9 g/dl (32.0-36.0); MEAN CELL VOLUME 88.7 fl (80-96); MEAN PLT VOLUME 7.5 fl (7.5-11.1); PLATELET COUNT 291 K/MM3 (134-434); RBC 3.65 M/mm3 (3.60-5.2); RDW 17.7 % (11.6-15.6); WHITE BLOOD COUNT 10.4 K/mm3 (4.0-10.0)
[2017-08-21 13:38] LABS: ALBUMIN 2.6 g/dl (3.4-5.0); ANION GAP 10 (8-16); BLOOD UREA NITROGEN 27 mg/dL (7-18); CALCIUM 8.7 mg/dL (8.5-10.1); CHLORIDE 103 mmol/L (98-107); CO2 29 mmol/L (21-32); GLUCOSE,RANDOM 166 mg/dL (74-106); POTASSIUM 3.5 mmol/L (3.5-5.1); SGOT/AST 79 U/L (15-37); SODIUM 142 mmol/L (136-145)
[2017-08-21 13:41] LABS: ALK PHOS 116 U/L (45-117); BILIRUBIN,TOTAL 0.6 mg/dL (0.2-1.0); SGPT/ALT 25 U/L (12-78); TOT PROT 6.5 g/dl (6.4-8.2)
[2017-08-21 14:23] LABS: ANISOCYTOSIS 1+; MACROCYTOSIS 0; PLATELET ESTIMATE NORMAL
--- NOTE | 2017-08-21 20:00 | CONSULT ---
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 She denies changes in headaches, joint pain, changes in vision or fever. The patient has a 3 year history of diagnosis of polymyalgia rheumatica treated with Prednisone (about 10 mg/d). . On 10/15/15 she was admitted with headaches and ESR of 40. She had a temporal artery biopsy that was negative for vasculitis. On 04/16/17 she was admitted after a syncope episode and 10 days later she was re-admitted with transient hemianopia in the left eye that resolved after 3 hours. She was treated with Solumedrol 60 mg IV. ~~~~~~~MRI was reported with small acute right occipital /temporal cortical infarct and small chronic left cerebellar infarct. Other changes (mild volume loss with multiple foci of small vessel infarction in the periventricular white matter and brainstem) unchanged when compared with previous study. The patient was seen by Dr. Hampton who considered there was no CVA. Laboratory work-up revealed ESR 75 and CRP 1.6. Creatinine 1.2. The patient continued treatment with Prednisone 60 mg/d. that at the time of discharge was tapered down to 20 mg /d. During the hospital stay and after discharge there were no changes in the headaches. My impression is that she did not have temporal arteritis. Laboratory work-up revealed an ESR of 97 (on 04/27/17: 50 and on 04/25/17: 75) creatinine was 1.0 and yesterday LFT were normal. CT of the chest with new right lower lobe pneumonia. Sputum cultures positive for pseudomona aeruginosa. 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 temporal artery biopsy on was not consistent with arteritis.) - Past Surgical History Past Surgical History: Yes: Appendectomy (at age 18), Hernia Repair (L inguinal 1983) - Alcohol/Substance Use Hx Alcohol Use: No - Smoking History Smoking history: Never smoked Have you smoked in the past 12 months: No Aproximately how many cigarettes per day: 0 - Social History Usual Living Arrangement: With Spouse ADL: Independent History of Recent Travel: No Home Medications - Allergies Allergies/Adverse Reactions: Allergies Allergy/AdvReac Type Severity Reaction Status Date / Time No Known Drug Allergies Allergy Verified 08/16/17 05:42 morphine AdvReac Mild N/V Verified 08/15/17 22:14 - Home Medications Home Medications: Ambulatory Orders Carbidopa/Levodopa *Cr* 25/100 [Sinemet *Cr* 25/100 -] 1 combo PO TIDCM #90 tab 04/20/17 Amlodipine Besylate [Norvasc -] 5 mg PO BID #60 tablet 04/29/17 Aspirin Coated [Ecotrin -] 81 mg PO DAILY #30 tablet 04/29/17 Pantoprazole Sodium [Protonix -] 40 mg PO DAILY #30 tab 04/29/17 Albuterol 0.083% Nebulizer Ester [Ventolin 0.083% Nebulizer Soln -] 1 amp NEB Q4H PRN #60 amp 05/27/17 Ciprofloxacin [Cipro -] 250 mg PO BID #6 tablet 08/21/17 Multivitamins [Multivit ([facility] Formulary)] 1 tab PO DAILY #30 tab 08/21/17 Nystatin Oral Suspension - [Nystatin Oral Susp 810605 Units/5 ML -] 500,000 units PO Q6HPO #500 ml 08/21/17 Prednisone [Deltasone -] 40 mg PO DAILY tablet 08/21/17 Family Disease History - Family Disease History Family Disease History: Other: Father ( of CVA in 90s, HTN), Brother (HTN, prostate ca), Sister (HTN), Daughter Review of Systems - Review of Systems Constitutional: reports: Weakness Eyes: reports: No Symptoms HENT: reports: No Symptoms Neck: reports: No Symptoms Cardiovascular: reports: No Symptoms Respiratory: reports: No Symptoms Gastrointestinal: reports: No Symptoms Genitourinary: reports: No Symptoms Musculoskeletal: reports: No Symptoms Neurological: reports: Tremors Endocrine: reports: No Symptoms Physical Exam Vital Signs: Vital Signs Temperature 98.3 F 08/21/17 18:00 Pulse Rate 108 H 08/21/17 18:00 Respiratory Rate 18 08/21/17 18:00 Blood Pressure 160/93 08/21/17 18:00 O2 Sat by Pulse Oximetry (%) 94 L 08/21/17 14:15 Constitutional: Yes: Moderate Distress Eyes: Yes: WNL HENT: Yes: WNL Neck: Yes: WNL Cardiovascular: Yes: WNL Respiratory: Yes: Other (Bilateral basal coarse crepitus.) Gastrointestinal: Yes: WNL Musculoskeletal: Yes: Other (No active joints.) Neurological: Yes: Tremors Labs: CBC, BMP 08/21/17 12:15 08/21/17 12:15 Microbiology 08/16/17 21:30 Sputum - Expectorated Gram Stain - Final 08/16/17 21:30 Sputum - Expectorated Sputum Culture - Final Pseudomonas Aeruginosa#2 Pseudomonas Aeruginosa Staphylococcus Aureus Laboratory Tests 08/16/17 08/16/17 08/18/17 00:30 16:25 12:50 ESR 97 H Random Glucose Calcium Total Bilirubin AST ALT Alkaline Phosphatase Total Protein Albumin Urine Color Yellow Urine Appearance Clear Urine pH 5.0 Ur Specific [place]man 1.014 Urine Protein Negative Urine Glucose (UA) Negative Urine Ketones Trace H Urine Blood Negative Urine Nitrite Negative Urine Bilirubin Negative Urine Urobilinogen Negative Ur Leukocyte Esterase Negative Aspergillus flavus Ab Negative Aspergill fumigatus Ab Negative Aspergillus niger Ab Negative 08/21/17 12:15 ESR Random Glucose 166 H D Calcium 8.7 Total Bilirubin 0.6 AST 79 H D ALT 25 D Alkaline Phosphatase 116 D Total Protein 6.5 Albumin 2.6 L Urine Color Urine Appearance Urine pH Ur Specific [place] Urine Protein Urine Glucose (UA) Urine Ketones Urine Blood Urine Nitrite Urine Bilirubin Urine Urobilinogen Ur Leukocyte Esterase Aspergillus flavus Ab Aspergill fumigatus Ab Aspergillus niger Ab Problem List - Problems (1) Polymyalgia rheumatica Assessment/Plan: The patient has a 3 year history history of polymyalgia rheumatica 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 Temporal artery biopsy was negative for vasculitis. She has history of chronic headaches and she had an episode of transient hemianopia with abnormalities in the MRI suggestive of infarct. She has been treated with high doses of steroids with no improvement of headaches. It is my impression that she did not have temporal arteritis. She has had progressive elevation of ESR, however she has bronchiectasis and admitted with new lung infiltrate. I suggest to give Prednisone only as needed for pulmonary disease. Code(s): M35.3 - POLYMYALGIA RHEUMATICA
[2017-08-21] MEDS: ALBUTEROL SO4 0.083% IH SOL 2.5 MG/3 ML VIAL.NEB. NEB PRN (23:30)
[2017-08-21] MEDS ORDERED: ZOLPIDEM TARTRATE 5 MG TABLET PO PRN (23:42)
[2017-08-22] MEDS: NYSTATIN 500,000 UNITS/5 ML SUSPENSION PO SCH ×3 (06:37→12:17)
[2017-08-22 10:19] VITALS: PULSE 100
[2017-08-22] MEDS ORDERED: PT OWN MED DRAWER 7, Y5N ONE (11:00)
--- NOTE | 2017-08-22 11:08 | PN ---
Progress Note (short form) - Note Progress Note: dc was held yesterday due to weakness, O2 sats were low, home o2 was ordered CBC, BMP 08/21/17 12:15 08/21/17 12:15 Vital Signs Period Temp Pulse Resp BP Sys/Garcia Pulse Ox Last 24 Hr 98.1 F-98.3 F 100-116 18-20 139-160/77-93 94-94 S1S2 RRR Lungs scattered coarse rales no edema tremor present, quite severe refused labs this am IMp ILD +- Pneumonia/Bronchiectasis Parkinson's ds. PMR HTN with orthostatic features finish oral abx and taper steroids as outpt home O2 VNS Problem List - Problems (1) Generalized weakness Code(s): R53.1 - WEAKNESS (2) ILD (interstitial lung disease) Code(s): J84.9 - INTERSTITIAL PULMONARY DISEASE, UNSPECIFIED (3) COPD (chronic obstructive pulmonary disease) Code(s): J44.9 - CHRONIC OBSTRUCTIVE PULMONARY DISEASE, UNSPECIFIED Qualifiers: COPD type: unspecified COPD Qualified Code(s): J44.9 - Chronic obstructive pulmonary disease, unspecified (4) History of polymyalgia rheumatica Code(s): Z87.39 - PERSONAL HISTORY OF DISEASES OF THE MS SYS AND CONN TISS (5) Dehydration Code(s): E86.0 - DEHYDRATION (6) Hypertension Code(s): I10 - ESSENTIAL (PRIMARY) HYPERTENSION Qualifiers: Hypertension type: essential hypertension Qualified Code(s): I10 - Essential (primary) hypertension
[2017-08-22] MEDS: CIPROFLOXACIN 250 MG TABLET (RESTRICTED TO ID) PO SCH (11:19)
[2017-08-22] MEDS: predniSONE 20 MG TABLET (UD) PO SCH (11:20)
[2017-08-22] MEDS: PANTOPRAZOLE 40 MG TABLET (FP) PO SCH (11:21)
[2017-08-22] MEDS: MULTIVITAMINS (DAILY MVI) TABLET (FP) PO SCH (11:21)
[2017-08-22] MEDS: ASPIRIN COATED 81 MG TABLET.EC PO SCH (11:21)
[2017-08-22] MEDS: amLODIPine BESYLATE 5 MG TABLET (FP) PO SCH (11:21)
[2017-08-22 15:17] VITALS: BP 149/73; TEMP 98.6
== END 2017-08-22 12:55 | disposition home health service (06) | DRG 191 ==
LOC: JER 22:05 → JERBED 08-16 01:09 → J7W 08-16 03:51
PROVIDERS: ADMIT Internal Medicine; ATTEND Internal Medicine
DX: J47.1 Bronchiectasis with (acute) exacerbation (principal); J44.1 Chronic obstructive pulmonary disease with (acute) exacerbation; A31.9 Mycobacterial infection, unspecified; J18.9 Pneumonia, unspecified organism; J84.9 Interstitial pulmonary disease, unspecified; R53.1 Weakness; E86.0 Dehydration; I10 Essential (primary) hypertension; M35.3 Polymyalgia rheumatica; C50.919 Malignant neoplasm of unspecified site of unspecified female breast; J98.4 Other disorders of lung; G20 Parkinson's disease; R62.7 Adult failure to thrive
CPT/HCPCS: 36415; 71045-TC; 71250-TC; 80053; 81003; 82550; 84484; 85025; 85610; 85651; 86140; 87040; 87070; 87086; 87102; 87186; 87205; 87210; 87899; 93005; 93010; 94640; 94761; 97116-GP; 97161-GP; 99284-25

== ENCOUNTER 2017-08-30 08:44 | Inpatient (IN) | payer OTHER, MEDICARE ==
[2017-08-30 09:03] VITALS: BMI 19.1
[2017-08-30] MEDS ORDERED: ACETAMINOPHEN 1000 MG/100 ML VIAL (NON FORMULARY) IVPB ONE (09:11)
[2017-08-30] MEDS ORDERED: SODIUM CHLORIDE 500 ML IV STA (09:11)
--- NOTE | 2017-08-30 09:14 | PDOC ---
History of Present Illness - General Chief Complaint: Respiratory Stated Complaint: PNE Time Seen by Provider: 08/30/17 09:04 History Source: Patient Exam Limitations: No Limitations - History of Present Illness Initial Comments: 08/30/17 09:23 Patient is a 76-year-old female with past medical history of CA( left breast 1997), CVA (05/2017), COPD, anemia, pneumonia, seizures, pulmonary hypertension , Parkinson's who presents to the emergency department today complaining of increasing shortness of breath and left-sided chest pain. Patient was recently admitted on 08/15/17 for pneumonia/COPD exacerbation. Patient today presents with similar symptoms however today she has a moist productive cough. Denies fevers or chills at home. States that she has increased difficulty breathing at rest and with exertion. She states that she feels overall weak. Patient believes that she has pneumonia at this time. Past History - Travel Traveled outside of the country in the last 30 days: No Close contact w/someone who was outside of country & ill: No - Past Medical History Allergies/Adverse Reactions: Allergies Allergy/AdvReac Type Severity Reaction Status Date / Time morphine AdvReac Mild N/V Verified 08/30/17 08:55 Home Medications: Ambulatory Orders Carbidopa/Levodopa *Cr* 25/100 [Sinemet *Cr* 25/100 -] 1 combo PO TIDCM #90 tab 04/20/17 Amlodipine Besylate [Norvasc -] 5 mg PO BID #60 tablet 04/29/17 Aspirin Coated [Ecotrin -] 81 mg PO DAILY #30 tablet 04/29/17 Pantoprazole Sodium [Protonix -] 40 mg PO DAILY #30 tab 04/29/17 Albuterol 0.083% Nebulizer Ester [Ventolin 0.083% Nebulizer Soln -] 1 amp NEB Q4H PRN #60 amp 05/27/17 Ciprofloxacin [Cipro -] 250 mg PO BID #6 tablet 08/21/17 Multivitamins [Multivit ([facility] Formulary)] 1 tab PO DAILY #30 tab 08/21/17 Nystatin Oral Suspension - [Nystatin Oral Susp 288217 Units/5 ML -] 500,000 units PO Q6HPO #500 ml 08/21/17 Prednisone [Deltasone -] 40 mg PO DAILY tablet 08/21/17 Anemia: Yes Asthma: No Cancer: Yes (BREAST) Cardiac Disorders: No CVA: Yes (tia) COPD: Yes (interstitial lung disease) CHF: No Dementia: No Diabetes: No GI Disorders: Yes (diverticulosis,) Disorders: No HTN: Yes Hypercholesterolemia: No Liver Disease: No Psychiatric Problems: No Seizures: No Thyroid Disease: No Other medical history: PARKINSONS. - Surgical History Abdominal Surgery: Yes (stent placement pancreas) Appendectomy: Yes Cholecystectomy: No Orthopedic Surgery: No - Immunization History Immunization Up to Date: Yes - Suicide/Smoking/Psychosocial Hx Smoking Status: No Smoking History: Never smoked Have you smoked in the past 12 months: No Number of Cigarettes Smoked Daily: 0 Cigars Per Day: 0 Hx Alcohol Use: No Drug/Substance Use Hx: No Substance Use Type: None Hx Substance Use Treatment: No Review of Systems - Review of Systems Able to Perform ROS?: Yes Comments:: 08/30/17 09:23 CONSTITUTIONAL: Present: generalized weakness. Absent: fever, chills, diaphoresis, malaise, loss of appetite HEENT: Present: nasal congestion Absent: rhinorrhea, throat pain, throat swelling, difficulty swallowing, mouth swelling, ear pain, eye pain, visual Changes CARDIOVASCULAR: Present: chest pain Absent: loss of consciousness, palpitations, irregular heart rate, peripheral edema RESPIRATORY: Present: moist productive cough, shortness of breath, dyspnea with exertion Absent: orthopnea, wheezing, stridor, hemoptysis GASTROINTESTINAL: Absent: abdominal pain, abdominal distension, nausea, vomiting, diarrhea, constipation, melena, hematochezia GENITOURINARY: Absent: dysuria, frequency, urgency, hesitancy, hematuria, flank pain, genital pain MUSCULOSKELETAL: Absent: myalgia, arthralgia, joint swelling SKIN: Absent: rash, itching, pallor HEMATOLOGIC/IMMUNOLOGIC: Absent: easy bleeding, easy bruising, lymphadenopathy, frequent infections ENDOCRINE: Absent: unexplained weight gain, unexplained weight loss, heat intolerance, cold intolerance NEUROLOGIC: Absent: headache, focal weakness or paresthesias, dizziness, unsteady gait, seizure, mental status changes, bladder or bowel incontinence PSYCHIATRIC: Absent: anxiety, depression, suicidal or homicidal ideation, hallucinations. Is the patient limited Romanian proficient: No *Physical Exam - Vital Signs Last Vital Signs Temp Pulse Resp BP Pulse Ox 99.5 F 122 H 26 H 144/85 100 08/30/17 08:52 08/30/17 08:52 08/30/17 08:52 08/30/17 08:52 08/30/17 08:52 ED Treatment Course - LABORATORY CBC & Chemistry Diagram: 08/30/17 10:05 08/30/17 10:05 - RADIOLOGY Radiology Studies Ordered: Category Date Time Status CHEST X-RAY PORTABLE* [RAD] Stat Radiology 08/30/17 09:09 Ordered Medical Decision Making - Medical Decision Making 08/30/17 09:51 Patient is a 76-year-old female with past medical history of CA( left breast 1997), CVA (05/2017), COPD, anemia, pneumonia, seizures, pulmonary hypertension , Parkinson's who presents to the emergency department today complaining of increasing shortness of breath and left-sided chest pain. Patient was recently minutes to the emergency department with exacerbation of her interstitial lung disease. She was discharged on the . Patient today sounds very congested with a moist productive cough and rhonchi throughout both lungs. Differential diagnosis includes but is not limited to pneumonia acute exacerbation of her lung disease, ACS given chest pain. 1.CBC, CMP, troponin, PT/INR, UA, UC 2.cardiac monitoring, oxygen, DuoNeb 3.chest x-ray, EKG 4.reevaluate 08/30/17 11:26 Chest x-ray appears unchanged from chest x-ray on August 16. Troponin is positive at 0.06. We'll trend at this time. Patient is still tachycardic at this time despite treatments and oxygen. We will admit at this time for elevated troponins, chest pain, exacerbation of her interstitial lung disease. EKG shows a rate of 128, sinus tachycardia with PACs. LVH. Unspecified ST-T wave changes. 08/30/17 12:01 Patient's primary care doctor is Dr. Davis. Dr. Helton covering for him. Discussed case with her and she agrees for admission. Added cardiac consult, Dr. Gasca. 08/30/17 14:25 2nd troponin 0.09. Trending up. 3rd profile ordered. Aspirin given. Repeat EKG obtained. 08/30/17 15:40 Repeat EKG: rate 109, sinus tach with PAC's , LVH, unspecified ST-T wave changes. Unchanged from first EKG. *DC/Admit/Observation/Transfer Diagnosis at time of Disposition: Acute exacerbation of chronic obstructive bronchitis Chest pain Qualifiers: Chest pain type: chest pain on breathing Qualified Code(s): R07.1 - Chest pain on breathing COPD (chronic obstructive pulmonary disease) Qualifiers: COPD type: unspecified COPD Qualified Code(s): J44.9 - Chronic obstructive pulmonary disease, unspecified - Discharge Dispostion Condition at time of disposition: Stable Admit: Yes - Referrals - Patient Instructions - Post Discharge Activity
[2017-08-30 10:30] LABS: HEMATOCRIT 35.2 % (32.4-45.2); MCH 27.8 pg (25.7-33.7); MCHC 31.3 g/dl (32.0-36.0); MEAN CELL VOLUME 88.6 fl (80-96); MEAN PLT VOLUME 7.2 fl (7.5-11.1); PLATELET COUNT 291 K/MM3 (134-434); RBC 3.98 M/mm3 (3.60-5.2); RDW 17.9 % (11.6-15.6); WHITE BLOOD COUNT 10.7 K/mm3 (4.0-10.0)
[2017-08-30 10:31] LABS: INR 1.04 (0.82-1.09); PROTHROMBIN TIME (PATIENT) 11.8 SEC (9.98-11.88)
[2017-08-30 10:46] LABS: ALBUMIN 2.5 g/dl (3.4-5.0); ANION GAP 8 (8-16); BLOOD UREA NITROGEN 26 mg/dL (7-18); CALCIUM 8.5 mg/dL (8.5-10.1); CHLORIDE 111 mmol/L (98-107); CO2 27 mmol/L (21-32); CREATININE 1.1 mg/dL (0.55-1.02); GLUCOSE,RANDOM 121 mg/dL (74-106); POTASSIUM 3.4 mmol/L (3.5-5.1); SGOT/AST 22 U/L (15-37); SGPT/ALT 19 U/L (12-78); SODIUM 146 mmol/L (136-145)
[2017-08-30 10:49] LABS: ALK PHOS 92 U/L (45-117); BILIRUBIN,TOTAL 0.6 mg/dL (0.2-1.0); TOT PROT 6.4 g/dl (6.4-8.2)
[2017-08-30] MEDS ORDERED: ALBUTEROL SO4 2.5/IPRATROPIUM 0.5 INH SOL 3 ML VIAL.NEB. NEB ONE ×2 (11:08→11:39)
--- NOTE | 2017-08-30 11:34 | EKG ---
Test Reason : Blood Pressure : / mmHG Vent. Rate : 128 BPM Atrial Rate : 128 BPM P-R Int : 124 ms QRS Dur : 096 ms QT Int : 314 ms P-R-T Axes : 055 -25 116 degrees QTc Int : 458 ms POOR DATA QUALITY, INTERPRETATION MAY BE ADVERSELY AFFECTED SINUS TACHYCARDIA WITH PREMATURE ATRIAL COMPLEXES WITH ABERRANT CONDUCTION LEFT VENTRICULAR HYPERTROPHY WITH REPOLARIZATION ABNORMALITY CANNOT RULE OUT SEPTAL INFARCT , AGE UNDETERMINED INFERIOR INFARCT , AGE UNDETERMINED ABNORMAL ECG WHEN COMPARED WITH ECG OF 16-AUG-2017 00:52, MINIMAL CRITERIA FOR SEPTAL INFARCT ARE NOW PRESENT INFERIOR INFARCT IS NOW PRESENT INVERTED T WAVES HAVE REPLACED NONSPECIFIC T WAVE ABNORMALITY IN LATERAL LEADS Confirmed by JULIÁN LEON, LESLIE ([id number]) on 08/30/2017 11:33:46 AM Referred By: Confirmed By:LESLIE GALLEGO MD
[2017-08-30 12:35] LABS: URINE APPEARANCE CLOUDY; URINE BILIRUBIN NEGATIVE (NEGATIVE); URINE BLOOD 1+ (NEGATIVE); URINE COLOR DKYELLOW; URINE GLUCOSE (UA) NEGATIVE (NEGATIVE); URINE KETONE NEGATIVE (NEGATIVE); URINE NITRITE NEGATIVE (NEGATIVE); URINE UROBILINOGEN NEGATIVE mg/dL (0.2-1.0)
[2017-08-30 12:46] LABS: URINE LEUK ESTERASE 3+ (NEGATIVE); URINE PROTEIN 2+ (NEGATIVE)
[2017-08-30 12:51] LABS: EPI CELLS RARE /HPF (FEW); URINE BACTERIA MANY /hpf (NONE SEEN)
[2017-08-30 13:33] LABS: PLATELET ESTIMATE NORMAL
[2017-08-30] MEDS ORDERED: ASPIRIN 81 MG CHEWABLE TABLETS PO ONE (14:25)
--- NOTE | 2017-08-30 15:51 | CONS ---
DATE OF CONSULTATION: DATE OF DICTATION: 08/30/2017 REQUESTED BY: Raysa Davis MD LOCATION: Emergency room. CHIEF COMPLAINT: 1. Chest pain. 2. Shortness of breath. 3. Cough. HISTORY OF PRESENT ILLNESS: A 76-year-old [place] female with longstanding history of hypertension, chronic lung disease/bronchiectasis, history of polymyalgia rheumatica, parkinsonism, history of carcinoma of the left breast, underwent lumpectomy followed by chemotherapy and radiation, history of anemia, recent pneumonia and exacerbation of underlying pulmonary disease on August 15, 2017. Patient says she developed left-sided chest pain that radiated to both the left arm and was nonpleuritic in nature. She also experienced dyspnea. Had a cough that was mostly nonproductive. There was no history of diaphoresis. No history of nausea or vomiting. The pain since admission has abated, but she has been complaining of left lower quadrant discomfort. There is no history of lightheadedness, dizziness, presyncope or syncope. History of moderate mitral and tricuspid regurgitation by Doppler interrogation. She also has history of a TIA/CVA. She had a history of recurring pancreatitis and has been diagnosed to have a pancreas divisum and had undergone stenting of the pancreatic duct. Back in September 2015 she had a sudden loss of consciousness and there were probable tonic-clonic seizures. PAST HISTORY: As mentioned in the history of present illness. SURGICAL HISTORY: 1. Status post left breast lumpectomy. 2. Status post appendectomy. 3. Stenting of the pancreatic duct. 4. ? status post tonsillectomy. SOCIAL HISTORY: She is , has 2 sons and a daughter. The daughter had fallopian tube carcinoma and also thyroid carcinoma. She also is known to have hypertension. Her sons are apparently healthy. She does not smoke or use alcohol. FAMILY HISTORY: Father of natural causes in his 90s. Mother at the age of 40 apparently related to a cerebrovascular accident and she was known to be hypertensive. Has 2 brothers. One of them is hypertensive. The other brother apparently had carcinoma of the prostate. She also has 3 sisters. All of them are hypertensive. ALLERGIES: She is intolerant to MORPHINE. MEDICATIONS: As documented were as follows: 1. Carbidopa-levodopa 25/100 mg 1 p.o. t.i.d. 2. Amlodipine 5 mg p.o. b.i.d. 3. Aspirin 81 mg p.o. daily. 4. Pantoprazole 40 mg p.o. daily. 5. Albuterol via nebulizer q.4 h. p.r.n. 6. Ciprofloxacin 250 mg p.o. b.i.d. 7. Multivitamin 1 p.o. daily. 8. Nystatin oral suspension. 9. Prednisone 40 mg p.o. daily. Current medications are not documented. REVIEW OF SYSTEMS: Constitutional: No history of chills, fever or night sweats, history of unintentional weight loss. HEENT: History of chronic intermittent headaches, no history of diplopia, blurred vision reported, no history of epistaxis, no history of hoarseness. No history of deafness. She on rare occasion has transient left ear tinnitus. Cardiovascular: See history of present illness. Respiratory: See history of present illness. Gastrointestinal: No history of nausea, vomiting, melena or hematemesis. Complaining of left lower quadrant pain. Central Nervous System: See history of present illness. History of coarse tremors and was diagnosed to have parkinsonism. No history of recent seizures. History of small strokes recorded on an MRI. Genitourinary: No history of dysuria, frequency or hematuria reported. Musculoskeletal: No history of myalgias or arthralgias. Endocrine: No history of polyuria or polydipsia. No history of intolerance to cold or warm weather. Hematological: No history of anemia or ecchymosis reported. PHYSICAL EXAMINATION:General: A 76-year-old female was lying in bed, had coarse tremors involving the arms, legs and facial muscles. There is no pallor noted, no cyanosis, clubbing or jaundice. Vital Signs: Weight 115 pounds. Blood pressure 146/84 mmHg. Pulse was 105 beats per minute and regular. Temperature on August 30 was 99.5 degrees Fahrenheit. Oxygen saturation was 96% on 2 L of oxygen. Neck: Supple, no jugular venous distention, hepatojugular reflux was negative, carotids were 2+, upstrokes were normal, no bruits or thyromegaly was appreciated. Heart: PMI was in the 5th intercostal space, no heaves or thrills, S1 and S2 were normal, grade 1 to 2/6 decrescendo systolic murmur was heard at the apex and left sternal border, no diastolic murmur or gallops were heard. Lungs: Bibasilar crepitation posteriorly more pronounced on the left. No expiratory wheezing was heard. Abdomen: Soft, there was left upper and lower quadrant tenderness on deep palpation. No rebound tenderness was elicited. There was mild guarding. No hepatosplenomegaly or palpable masses were felt. Bowel sounds were decreased, no bruits were heard. Extremities: No calf tenderness or dependent edema. Pulses were equal. There were coarse tremors of all extremities. DIAGNOSTIC DATA: ECG, August 30, 2017: Suboptimal tracing, baseline artifacts are recorded. Sinus tachycardia with frequent supraventricular premature beats that were single. Left axis deviation, LVH by voltage criteria, anteroseptal wall myocardial infarction cannot be excluded. Lab data: Sodium 136, potassium 3.4, chloride 111. CO2 27 mM/L. BUN 26, creatinine 1.1 mg/dL. Random glucose 121 mg/dL. CK 19 and 27, respectively. Troponin 0.07 and 0.09. CBC: WBC count 10,700. Hemoglobin 11 g/dL. Platelet count 297,000. Differential revealed a left shift. IMPRESSION: 1. Chest pain syndrome, etiology: a. Secondary to coronary artery disease, angina pectoris, exclude myocardial infarction. 2. Dyspnea on exertion, etiology: a. Left ventricular failure needs to be excluded. b. Secondary to exacerbation of chronic lung disease/bronchiectasis. c. Pneumonia needs to be excluded. 3. Hypertension, hypertensive cardiovascular disease. 4. Parkinsonism. 5. Status post polymyalgia rheumatica. 6. Status post left breast carcinoma. 7. Mitral regurgitation by Doppler interrogation. 8. History of tricuspid regurgitation. 9. Hypokalemia. 10. History of cerebrovascular accident. 11. Left upper and lower quadrant pain, etiology to be determined. 12. Hypokalemia. 13. Pancreas divisum. 14. Status post stenting of the pancreatic duct. RECOMMENDATIONS: 1. Serial EKGs and enzymes. 2. Resume all cardiac therapy and patient could be converted to diltiazem from amlodipine and titrate dose. 3. BNP to exclude the possibility of left ventricular failure. 4. Evaluation of abdominal discomfort. 5. Resume preadmission medications. 6. Further suggestions will depend upon the results of the above-mentioned tests. PROGNOSIS: Guarded. Thank you for your referral. Yours sincerely, ADAM WEBSTER M.D. [id number]
[2017-08-30] MEDS ORDERED: NITROGLYCERIN 2% OINTMENT - 1GM PACKET TD ONE ×2 (15:57→17:47)
[2017-08-30] MEDS ORDERED: LEVOFLOXACIN 500 MG IVPB 500 MG/100 ML BAG IVPB ONE ×2 (16:10→17:47)
--- NOTE | 2017-08-30 16:15 | HP ---
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 temporal artery biopsy on was not consistent with arteritis.) - Past Surgical History Past Surgical History: Yes: Appendectomy (at age 18), Hernia Repair (L inguinal 1983) - Smoking History Smoking history: Never smoked Have you smoked in the past 12 months: No Aproximately how many cigarettes per day: 0 - Alcohol/Substance Use Hx Alcohol Use: No - Social History ADL: Independent History of Recent Travel: No Home Medications - Allergies Allergies/Adverse Reactions: Allergies Allergy/AdvReac Type Severity Reaction Status Date / Time morphine AdvReac Mild N/V Verified 08/30/17 08:55 - Home Medications Home Medications: Ambulatory Orders Carbidopa/Levodopa *Cr* 25/100 [Sinemet *Cr* 25/100 -] 1 combo PO TIDCM #90 tab 04/20/17 Amlodipine Besylate [Norvasc -] 5 mg PO BID #60 tablet 04/29/17 Aspirin Coated [Ecotrin -] 81 mg PO DAILY #30 tablet 04/29/17 Pantoprazole Sodium [Protonix -] 40 mg PO DAILY #30 tab 04/29/17 Albuterol 0.083% Nebulizer Ester [Ventolin 0.083% Nebulizer Soln -] 1 amp NEB Q4H PRN #60 amp 05/27/17 Ciprofloxacin [Cipro -] 250 mg PO BID #6 tablet 08/21/17 Multivitamins [Multivit ([facility] Formulary)] 1 tab PO DAILY #30 tab 08/21/17 Nystatin Oral Suspension - [Nystatin Oral Susp 779009 Units/5 ML -] 500,000 units PO Q6HPO #500 ml 08/21/17 Prednisone [Deltasone -] 40 mg PO DAILY tablet 08/21/17 Family Disease History - Family Disease History Family Disease History: Other: Father ( of CVA in 90s, HTN), Brother (HTN, prostate ca), Sister (HTN), Daughter Review of Systems - Review of Systems Constitutional: reports: Lethargy, Loss of Appetite Cardiovascular: reports: Chest Pain, Palpitations, Shortness of Breath Respiratory: reports: SOB on Exertion Gastrointestinal: reports: No Symptoms Neurological: reports: Tremors, Unsteady Gait Psychiatric: reports: No Symptoms Physical Examination Vital Signs: Vital Signs Temperature 99.5 F 08/30/17 08:52 Pulse Rate 105 H 08/30/17 12:52 Respiratory Rate 26 H 08/30/17 08:52 Blood Pressure 146/84 08/30/17 12:52 O2 Sat by Pulse Oximetry (%) 96 08/30/17 12:52 Constitutional: Yes: Moderate Distress HENT: Yes: Normocephalic, Thrush Neck: Yes: Supple, Trachea Midline Cardiovascular: Yes: Tachycardia, S1, S2 Respiratory: Yes: Rales, Rhonchi (diffuse bilateral, deep productive cough, unable to expectorate) Gastrointestinal: Yes: Normal Bowel Sounds, Soft Edema: No Peripheral Pulses WNL: Yes Neurological: Yes: Oriented, Tremors Labs: CBC, BMP 08/30/17 10:05 08/30/17 10:05 Abnormal Lab Results 08/30/17 08/30/17 08/30/17 10:05 10:05 11:14 WBC 10.7 H MCHC 31.3 L RDW 17.9 H MPV 7.2 L Neutrophils % (Manual) 85.0 H Lymphocytes % (Manual) 2.0 L D Monocytes % (Manual) 3 L Sodium 146 H Potassium 3.4 L Chloride 111 H BUN 26 H Creatinine 1.1 H Random Glucose 121 H Creatine Kinase 19 L Troponin I 0.07 H 0.09 H Albumin 2.5 L Urine Protein Urine Blood Ur Leukocyte Esterase 08/30/17 12:20 WBC MCHC RDW MPV Neutrophils % (Manual) Lymphocytes % (Manual) Monocytes % (Manual) Sodium Potassium Chloride BUN Creatinine Random Glucose Creatine Kinase Troponin I Albumin Urine Protein 2+ H Urine Blood 1+ H Ur Leukocyte Esterase 3+ H Imaging - Results Chest X-ray: Report Reviewed EKG: Report Reviewed Problem List - Problems (1) Acute exacerbation of chronic obstructive bronchitis Code(s): J44.1 - CHRONIC OBSTRUCTIVE PULMONARY DISEASE W (ACUTE) EXACERBATION (2) COPD (chronic obstructive pulmonary disease) Code(s): J44.9 - CHRONIC OBSTRUCTIVE PULMONARY DISEASE, UNSPECIFIED Qualifiers: COPD type: unspecified COPD Qualified Code(s): J44.9 - Chronic obstructive pulmonary disease, unspecified (3) Chest pain Code(s): R07.9 - CHEST PAIN, UNSPECIFIED Qualifiers: Chest pain type: chest pain on breathing Qualified Code(s): R07.1 - Chest pain on breathing; R07.81 - Pleurodynia (4) Generalized weakness Code(s): R53.1 - WEAKNESS (5) History of polymyalgia rheumatica Code(s): Z87.39 - PERSONAL HISTORY OF DISEASES OF THE MS SYS AND CONN TISS Assessment/Plan serial cardiac enzymes, r/o NSTEMI echo/ekg one time NTP dc amlodipine start diltiazem with holding parameters one dose levaquin iv steroids chest PT DVT prophylaxis GI prophylaxis will need STR
--- NOTE | 2017-08-30 16:37 | CON.PULM ---
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 Patient was discharged from [facility] on August 21 with similiar symptoms. 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 temporal artery biopsy on was not consistent with arteritis.) - Past Surgical History Past Surgical History: Yes: Appendectomy (at age 18), Hernia Repair (L inguinal 1983) - Alcohol/Substance Use Hx Alcohol Use: No - Smoking History Smoking history: Never smoked Have you smoked in the past 12 months: No Aproximately how many cigarettes per day: 0 - Social History Usual Living Arrangement: With Spouse ADL: Independent History of Recent Travel: No Home Medications - Allergies Allergies/Adverse Reactions: Allergies Allergy/AdvReac Type Severity Reaction Status Date / Time morphine AdvReac Mild N/V Verified 08/30/17 08:55 - Home Medications Home Medications: Ambulatory Orders Carbidopa/Levodopa *Cr* 25/100 [Sinemet *Cr* 25/100 -] 1 combo PO TIDCM #90 tab 04/20/17 Amlodipine Besylate [Norvasc -] 5 mg PO BID #60 tablet 04/29/17 Aspirin Coated [Ecotrin -] 81 mg PO DAILY #30 tablet 04/29/17 Pantoprazole Sodium [Protonix -] 40 mg PO DAILY #30 tab 04/29/17 Albuterol 0.083% Nebulizer Ester [Ventolin 0.083% Nebulizer Soln -] 1 amp NEB Q4H PRN #60 amp 05/27/17 Ciprofloxacin [Cipro -] 250 mg PO BID #6 tablet 08/21/17 Multivitamins [Multivit ([facility] Formulary)] 1 tab PO DAILY #30 tab 08/21/17 Nystatin Oral Suspension - [Nystatin Oral Susp 210725 Units/5 ML -] 500,000 units PO Q6HPO #500 ml 08/21/17 Prednisone [Deltasone -] 40 mg PO DAILY tablet 08/21/17 Family Disease History - Family Disease History Family Disease History: Other: Father ( of CVA in 90s, HTN), Brother (HTN, prostate ca), Sister (HTN), Daughter Review of Systems Unable to obtain ROS, reason: difficult to obtain - Review of Systems Constitutional: reports: Chills, Fever, Lethargy, Loss of Appetite, Unintentional Wgt. Loss, Weakness Eyes: denies: Blind Spots HENT: reports: Difficult Swallowing Neck: reports: Decreased ROM Cardiovascular: reports: Shortness of Breath. denies: Chest Pain Respiratory: reports: Cough, Exercise Intolerance, SOB, SOB on Exertion, Wheezing. denies: Hemoptysis Gastrointestinal: denies: Abdominal Pain Genitourinary: denies: Burning Breasts: reports: No Symptoms Reported Integumentary: reports: No Symptoms Neurological: reports: Pre-Existing Deficit Endocrine: reports: No Symptoms Physical Exam Vital Sings: Vital Signs Temperature 99.5 F 08/30/17 08:52 Pulse Rate 105 H 08/30/17 12:52 Respiratory Rate 26 H 08/30/17 08:52 Blood Pressure 146/84 08/30/17 12:52 O2 Sat by Pulse Oximetry (%) 96 08/30/17 12:52 Constitutional: Yes: Anxious, Mild Distress, Pallor Eyes: Yes: EOM Intact HENT: Yes: Normocephalic Neck: Yes: Decreased ROM Cardiovascular: Yes: Tachycardia, S1, S2 Respiratory: Yes: Rales, Rhonchi, Wheezes Gastrointestinal: Yes: Soft Edema: No Neurological: Yes: Alert, Pre-Existing Deficit Labs: CBC, BMP 08/30/17 10:05 08/30/17 10:05 rest reviewed Imaging - Results Chest X-ray: Report Reviewed, Image Reviewed EKG: Report Reviewed, Image Reviewed Problem List - Problems (1) Bronchiectasis with acute lower respiratory infection Code(s): J47.0 - BRONCHIECTASIS WITH ACUTE LOWER RESPIRATORY INFECTION (2) Parkinson disease Code(s): G20 - PARKINSON'S DISEASE (3) COPD (chronic obstructive pulmonary disease) Code(s): J44.9 - CHRONIC OBSTRUCTIVE PULMONARY DISEASE, UNSPECIFIED Qualifiers: COPD type: unspecified COPD Qualified Code(s): J44.9 - Chronic obstructive pulmonary disease, unspecified (4) Pneumonia Code(s): J18.9 - PNEUMONIA, UNSPECIFIED ORGANISM Assessment/Plan ACUTE EXACERBATION BRONCHIECTASIS INFECTED R/O PNEUMONIA MULTIPLE CO-MORBID CONDITIONS LISTED PANCULTURE IV ANTIBIOTICS/IV FLUIDS IV STEROIDS BRONCHODILATORS O2 SUPPLEMENTATION SWALLOW EVAL IF NOT RECENTLY DONE INFLU SWAB WOULD CONSIDER SNF REHAB WHEN READY FOR DISCHARGE Emerald CARRANZA MD
[2017-08-30] MEDS ORDERED: CARBIDOPA/LEVODOPA 25/100 TABLET (FP) ONE (17:47)
--- NOTE | 2017-08-30 17:49 | CON.ID ---
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 temporal artery biopsy on was not consistent with arteritis.) - Past Surgical History Past Surgical History: Yes: Appendectomy (at age 18), Hernia Repair (L inguinal 1983) - Alcohol/Substance Use Hx Alcohol Use: No - Smoking History Smoking history: Never smoked Have you smoked in the past 12 months: No Aproximately how many cigarettes per day: 0 - Social History Usual Living Arrangement: With Spouse ADL: Independent History of Recent Travel: No Home Medications - Allergies Allergies/Adverse Reactions: Allergies Allergy/AdvReac Type Severity Reaction Status Date / Time morphine AdvReac Mild N/V Verified 08/30/17 08:55 - Home Medications Home Medications: Ambulatory Orders Carbidopa/Levodopa *Cr* 25/100 [Sinemet *Cr* 25/100 -] 1 combo PO TIDCM #90 tab 04/20/17 Amlodipine Besylate [Norvasc -] 5 mg PO BID #60 tablet 04/29/17 Aspirin Coated [Ecotrin -] 81 mg PO DAILY #30 tablet 04/29/17 Pantoprazole Sodium [Protonix -] 40 mg PO DAILY #30 tab 04/29/17 Albuterol 0.083% Nebulizer Ester [Ventolin 0.083% Nebulizer Soln -] 1 amp NEB Q4H PRN #60 amp 05/27/17 Ciprofloxacin [Cipro -] 250 mg PO BID #6 tablet 08/21/17 Multivitamins [Multivit ([facility] Formulary)] 1 tab PO DAILY #30 tab 08/21/17 Nystatin Oral Suspension - [Nystatin Oral Susp 884541 Units/5 ML -] 500,000 units PO Q6HPO #500 ml 08/21/17 Prednisone [Deltasone -] 40 mg PO DAILY tablet 08/21/17 Family Disease History - Family Disease History Family Disease History: Other: Father ( of CVA in 90s, HTN), Brother (HTN, prostate ca), Sister (HTN), Daughter Review of Systems - Review of Systems Constitutional: reports: Weakness Eyes: reports: No Symptoms HENT: reports: No Symptoms Neck: reports: No Symptoms Cardiovascular: reports: Chest Pain Respiratory: reports: Cough, SOB Gastrointestinal: reports: No Symptoms. denies: Abdominal Pain Genitourinary: reports: No Symptoms Musculoskeletal: reports: No Symptoms Physical Exam Vital Signs: Vital Signs Temperature 99.5 F 08/30/17 08:52 Pulse Rate 105 H 08/30/17 12:52 Respiratory Rate 26 H 08/30/17 08:52 Blood Pressure 146/84 08/30/17 12:52 O2 Sat by Pulse Oximetry (%) 96 08/30/17 12:52 Constitutional: Yes: Thin HENT: Yes: WNL, Atraumatic, Normocephalic Neck: Yes: WNL, Supple Cardiovascular: Yes: Regular Rate and Rhythm, Tachycardia Respiratory: Yes: Regular, Cough, Rales, Rhonchi Gastrointestinal: Yes: Normal Bowel Sounds, Soft ...Rectal Exam: Yes: Deferred Extremities: Yes: WNL Neurological: Yes: Alert, Oriented Labs: CBC, BMP 08/30/17 10:05 08/30/17 10:05 Imaging - Results Chest X-ray: Report Reviewed, Image Reviewed Problem List - Problems (1) Acute exacerbation of chronic obstructive bronchitis Code(s): J44.1 - CHRONIC OBSTRUCTIVE PULMONARY DISEASE W (ACUTE) EXACERBATION (2) Bronchiectasis with acute lower respiratory infection Code(s): J47.0 - BRONCHIECTASIS WITH ACUTE LOWER RESPIRATORY INFECTION (3) Chest pain Code(s): R07.9 - CHEST PAIN, UNSPECIFIED Qualifiers: Chest pain type: chest pain on breathing Qualified Code(s): R07.1 - Chest pain on breathing; R07.81 - Pleurodynia (4) Parkinson disease Code(s): G20 - PARKINSON'S DISEASE Assessment/Plan prior history of pseudomonas in the sputum, would switch to zosyn for now chest pain may be cardiac given her underlying lung disease it is difficult to exclude an acute lung process would check influenza antigen as well obtain sputum culture
[2017-08-30] MEDS ORDERED: PIPERACILLIN/TAZOB 3.375 GM/50 ML PRE-DOCKED IVPB SCH (18:00)
--- NOTE | 2017-08-30 18:11 | CONS ---
DATE OF CONSULTATION: 08/30/2017 PULMONARY CONSULTATION REFERRING PHYSICIAN: Bozena Helton M.D. HISTORY OF PRESENT ILLNESS: The patient is a 76-year-old white female known to me from previous hospitalization with past medical history extensive with COPD, presents with chronic bronchiectasis, aspergilloma, left breast CA in 1997, history of CVA in May of 2017, anemia, pneumonia, seizures, pulmonary hypertension, Parkinson's, admitted to [facility] with a complaint of 1-day history increasing shortness of breath, chest congestion. Patient was recently hospitalized later this month secondary to COPD and pneumonia exacerbation. At the time she was treated with antibiotics and inhaled bronchodilators and steroids with good response. She is discharged home in stable condition, and she was advised to go to pulmonary rehabilitation but refused. The patient the past day or so again has been noticing increasing shortness of breath and chest congestion. She also complains of left-sided chest discomfort. She was evalucated by Dr. Gasca for cardiology consultation. Patient denies any fevers or chills. Denies any hemoptysis. States the cough is productive of yellow-green sputum. She does complain of increasing weakness. PAST MEDICAL HISTORY: Again includes CVA, TIA, history of COPD, interstitial lung disease, history of MAC, unable to tolerate medication, aspergilloma, extensive bronchiectasis, diverticulosis, gastritis, anemia, history of breast CA, Parkinson's. CURRENT MEDICATIONS: Include Solu-Medrol, Tylenol, Levaquin, Lovenox, albuterol, Cardizem, Sinemet, Ecotrin, nystatin and Protonix. REVIEW OF SYSTEMS: Positive cough. Positive chest congestion. Positive chest pain. No fever. No chills. No hemoptysis. No abdominal pain. No lower extremity edema. PHYSICAL EXAMINATION: General: The patient is an elderly white female well-developed, awake, alert, congested. She is currently afebrile. Vital signs: Heart rate 122, O2 saturation is 96% on 6 L 40% Ventimask, blood pressure 146/84. HEENT: Head is normocephalic, atraumatic. Neck: Supple. Heart: Regular. Tachycardic. Normal S1, S2. Chest: Diffuse bilateral rhonchi and wheezes. Abdomen: Soft. Bowel sounds positive. Extremities: No cyanosis, edema. LABORATORY: WBC is 10.7, hemoglobin 11, hematocrit 35.2, with a platelet count of 291,000. BUN 26, creatinine 1.1. Troponin 0.09. Chest x-ray: chronic bilateral disease, extensive bronchiectatic change, no true consolidations appreciated. IMPRESSION: 1. Acute respiratory distress secondary acute chronic obstructive pulmonary disease exacerbation. 2. Extensive bronchiectasis. 3. History of mycobacterium avium complex. 4. History of cerebrovascular accident. 5. Parkinson's. 6. History of breast carcinoma. 7. Positive troponins. 8. Acute kidney injury. 9. Chest pain. PLAN: Supplemental O2. Inhaled bronchodilators. IV steroids. Antibiotic therapy. Sputum for C&S. Chest PT. Troponins. IV fluids. Thank you. Will follow closely with you. LUIS HICKS M.D. [id number]
[2017-08-30] MEDS: ACETAMINOPHEN 325 MG TABLET (FP) PO PRN (20:38)
[2017-08-30] MEDS: ALBUTEROL SO4 0.083% IH SOL 2.5 MG/3 ML VIAL.NEB. NEB PRN (20:45)
[2017-08-30] MEDS: PIPERACILLIN/TAZOB 3.375 GM 3.375 GM in DEXTROSE 5%-WATER - 100 ML IVPB SCH (20:53)
[2017-08-30] MEDS: NYSTATIN 500,000 UNITS/5 ML SUSPENSION PO SCH (21:47)
[2017-08-30] MEDS: dilTIAZem HCL 30 MG TABLET (FP) PO SCH (21:47)
[2017-08-30] MEDS ORDERED: amLODIPine BESYLATE 5 MG TABLET (FP) PO SCH (22:00)
[2017-08-30] MEDS: methylPREDNISolone NA SUCC 125 MG/2 ML VIAL IVPB SCH (22:10)
[2017-08-31] MEDS: NYSTATIN 500,000 UNITS/5 ML SUSPENSION PO SCH ×5 (00:19→23:20)
[2017-08-31] MEDS: ACETAMINOPHEN 325 MG TABLET (FP) PO PRN ×2 (01:31→09:14)
[2017-08-31] MEDS: PIPERACILLIN/TAZOB 3.375 GM 3.375 GM in DEXTROSE 5%-WATER - 100 ML IVPB SCH ×3 (01:33→17:11)
[2017-08-31 02:27] LABS: ARTERIAL BLD GAS O2 SATURATION 87.8 % (90-98.9); ARTERIAL BLOOD GAS BASE EXCESS -1.6 meq/l (-2-2); ARTERIAL BLOOD GAS PCO2 47.4 mmHg (35-45); ARTERIAL BLOOD GAS PO2 58.7 mmHg (70-100); ARTERIAL BLOOD GAS pH 7.33 (7.35-7.45)
[2017-08-31 02:28] LABS: ALLENS TEST POSITIVE
[2017-08-31] MEDS ORDERED: ACETYLCYSTEINE 20% 200MG/ML 4 ML VIAL *FOR ORAL / INH USE ONLY ONE (02:32)
[2017-08-31] MEDS: ALBUTEROL SO4 0.083% IH SOL 2.5 MG/3 ML VIAL.NEB. NEB PRN ×2 (02:36→08:30)
[2017-08-31] MEDS ORDERED: ACETYLCYSTEINE 20% 200MG/ML 4 ML VIAL *FOR ORAL / INH USE ONLY NEB ONE (02:45)
--- NOTE | 2017-08-31 03:08 | RAPID ---
Physical Examination Vital Signs: Vital Signs Temperature 98.6 F 08/30/17 20:20 Pulse Rate 123 H 08/30/17 20:20 Respiratory Rate 24 08/30/17 20:20 Blood Pressure 137/74 08/30/17 20:20 O2 Sat by Pulse Oximetry (%) 94 L 08/30/17 20:05 Constitutional: Yes: Mild Distress, Moderate Distress Eyes: Yes: WNL HENT: Yes: WNL Neck: Yes: Supple Cardiovascular: Yes: WNL Respiratory: Yes: Cough, Rales, Wheezes Neurological: Yes: WNL Labs: CBC, BMP 08/30/17 10:05 08/30/17 10:05 Rapid Response - Rapid Response Assessment: Rapid response called at ~2AM, as pt became increasingly hypoxic, in respiratory distress with 02 sat decreasing into low 70's. Pt oral secretions suctioned (bloody), nebulizer tx given, and pt changed from venti mask to non- rebreather venti mask. HOB also elevated. stat ABG done with pH 7.33, 47.2 pC02 , 58.7 P02, 24 HC03. Respiratory team at bedside with BiPAP on stand-by. Goals of care discussed concerning intubation- pt stated to only intubate "if it needs to be done." Gave as family contact for discussion. Repeat ABG put in for AM labs. Pt currently sat 93-94% on non-rebreather and due for mucomyst tx.
[2017-08-31 06:15] LABS: ARTERIAL BLD GAS O2 SATURATION 95.2 % (90-98.9); ARTERIAL BLOOD GAS BASE EXCESS 0.2 meq/l (-2-2); ARTERIAL BLOOD GAS PCO2 39.5 mmHg (35-45); ARTERIAL BLOOD GAS PO2 75.2 mmHg (70-100); ARTERIAL BLOOD GAS pH 7.41 (7.35-7.45)
[2017-08-31 06:16] LABS: ALLENS TEST POSITIVE
[2017-08-31] MEDS: dilTIAZem HCL 30 MG TABLET (FP) PO SCH ×3 (06:20→23:20)
[2017-08-31 06:49] LABS: HEMATOCRIT 33.3 % (32.4-45.2); HEMOGLOBIN 10.4 GM/dL (10.7-15.3); MCHC 31.2 g/dl (32.0-36.0); MEAN CELL VOLUME 89.7 fl (80-96); PLATELET COUNT 246 K/MM3 (134-434); RBC 3.71 M/mm3 (3.60-5.2); RDW 17.9 % (11.6-15.6); WHITE BLOOD COUNT 8.4 K/mm3 (4.0-10.0)
[2017-08-31 07:12] LABS: CALCIUM 8.1 mg/dL (8.5-10.1); CHLORIDE 110 mmol/L (98-107); POTASSIUM 4.5 mmol/L (3.5-5.1); SODIUM 145 mmol/L (136-145)
[2017-08-31 07:18] LABS: ALK PHOS 84 U/L (45-117); ANION GAP 7 (8-16); BILIRUBIN,TOTAL 0.7 mg/dL (0.2-1.0); BLOOD UREA NITROGEN 31 mg/dL (7-18); CO2 28 mmol/L (21-32); CREATININE 1.1 mg/dL (0.55-1.02); GLUCOSE,RANDOM 155 mg/dL (74-106); SGOT/AST 20 U/L (15-37); SGPT/ALT 12 U/L (12-78); TOT PROT 5.5 g/dl (6.4-8.2)
--- NOTE | 2017-08-31 09:13 | PN ---
Progress Note (short form) - Note Progress Note: Events noted at night pt c/o "everything is wrong" Vital Signs Period Temp Pulse Resp BP Sys/Garcia Pulse Ox Last 24 Hr 96.9 F-98.7 F 104-124 21-28 126-147/71-92 94-96 CBC, BMP 08/31/17 05:05 08/31/17 05:05 CK wnlx3, troponin was still trending upwards yesterday 0.13 Blood culture gram negative bacilli in anaerobe bottle-h/o pseudomonas in sputum S1S2 tachy ~110 diffuse rhonchi, pt does not expectorate, basal coarse rales dry oral mucosa abd diffusely tender, +BS, soft no edema, pos. pulses awake alert, but fatigued on 100% NRB IMP gram negative bacteremia advanced interstitial lung ds. NSTEMI? vs. cardiac strain HTN Parkinson's ds. polymylagia Plan iv abx NPO iv fluids chest pt echo abd ct if medically more stable swallow eval consults appreciated d/w daughter at length requested palliative care eval Problem List - Problems (1) Acute exacerbation of chronic obstructive bronchitis Code(s): J44.1 - CHRONIC OBSTRUCTIVE PULMONARY DISEASE W (ACUTE) EXACERBATION (2) COPD (chronic obstructive pulmonary disease) Code(s): J44.9 - CHRONIC OBSTRUCTIVE PULMONARY DISEASE, UNSPECIFIED Qualifiers: COPD type: unspecified COPD Qualified Code(s): J44.9 - Chronic obstructive pulmonary disease, unspecified (3) Chest pain Code(s): R07.9 - CHEST PAIN, UNSPECIFIED Qualifiers: Chest pain type: chest pain on breathing Qualified Code(s): R07.1 - Chest pain on breathing; R07.81 - Pleurodynia (4) Generalized weakness Code(s): R53.1 - WEAKNESS (5) History of polymyalgia rheumatica Code(s): Z87.39 - PERSONAL HISTORY OF DISEASES OF THE MS SYS AND CONN TISS
[2017-08-31] MEDS: ENOXAPARIN NA (PORCINE) 40 MG/0.4 ML DISP.SYRIN SQ SCH (09:14)
[2017-08-31] MEDS: PANTOPRAZOLE 40 MG TABLET (FP) PO SCH (09:14)
[2017-08-31] MEDS ORDERED: SODIUM CHLORIDE 0.45% 1,000 ML IV SCH (09:15)
[2017-08-31] MEDS: methylPREDNISolone NA SUCC 125 MG/2 ML VIAL IVPB SCH ×2 (09:15→23:20)
[2017-08-31] MEDS: ASPIRIN COATED 81 MG TABLET.EC PO SCH (09:15)
[2017-08-31] MEDS ORDERED: FLU VACCINE QUAD 60 MCG/0.5 ML (MDV 17-18) IM ONE (10:00)
--- NOTE | 2017-08-31 10:19 | CONSULT ---
Admitting History and Physical - Primary Care Physician PCP: Bozena Helton - Admission History of Present Illness: Per EMR: Chief Complaint: chest pain, shortness of breath History of Present Illness: discharged form hospital 1 week ago, has been ok for couple days, then started getting weaker since yesterday evening has left sided chest pain with associated progressive dyspnea Seen by me 04/27/17 - Speech Evaluation, Impression/Plan Impression: jaw/tongue tremor, said to be baseline.Tolerating diet. Speech/ language/swallow/cognition intact. Dysphonia. MRI with small right occipital, temporal cortical acute infarcts - Dysphagia Impressions/Plan Swallowing Skills: WFL Dysphagia Impressions: No Impairment *Silent aspiration: cannot be R/O at bedside Recommendations: Neuro Consult, Modified Barium Swallow (if cough, congestion, fever.) - Recommendations Diet Consistency: Regular Medication Administration: Whole with water Liquids: Thin Liquids ID 08/16/17 ct scan reviewed, stable SHARATH/RML cavities c/w aspergilloma, extensive bronchiectasis with new infiltrate RLL RLL pneumonia- extensive bronchiectasis-prior pseudomonas History Source: Medical Record - Past Medical History 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 temporal artery biopsy on was not consistent with arteritis.) - Past Surgical History Past Surgical History: Yes: Appendectomy (at age 18), Hernia Repair (L inguinal 1983) - Smoking History Smoking history: Never smoked Have you smoked in the past 12 months: No Aproximately how many cigarettes per day: 0 - Alcohol/Substance Use Hx Alcohol Use: No - Social History ADL: Independent History of Recent Travel: No History - Admission Reason For Visit: ELEVATED TROPONIN,CHEST PAIN - Diagnostics X-ray: Report Reviewed - General Mental Status: Able to Follow Commands Attention: Intact Ability to Follow Directions: Fair Head/Neck Control: Fair - Hearing Hearing: Functional Speech Evaluation - Communication Primary Language: DUTCH Communication: Yes: Simple Responses - Speech Production Able to Make Needs Known: Yes: WNL Intelligibility: Yes: WNL - Speech Characteristics Voice Loudness: Normal Voice Pitch: Yes: Normal Voice Phonatory-based Quality: Yes: Dysphonia (mild), Vocal Wetness ( intermittent) Nasal Resonance: Normal Articulation: Yes: Precise - Language/Auditory Comprehension Follows: Yes: 1 Stage Simple Commands Observation: Comprehends Conversational Speech: Yes - Language/Verbal Expression Able to Respond to Simple Queries: Yes: WNL Able to Communicate Wants and Needs: Yes: WNL Functional Communication Status: Yes: WNL - Swallow Evaluation/Bedside Assessment Current Nutritional Intake: NPO Facial Symmetry at Rest: Symmetrical Laryngeal Movement: Labored,delay initiation Oral Prep Time: WFL A-P Transit: WFL Timing of Swallow: Delayed (likely exaccerbated by increased RR. On NRB) Coughing/Throat Clear: Yes (thin liquid) Recommendations - Speech Evaluation, Impression/Plan Impression: Pt with NRB on, stating she "just want to sleep." Rapid constant jaw tremor. Dysphonic. Cough/vocal wetness increases after drinking water from a straw. Suspect increased risk of aspiration with pulmonary deficits. Suspect intermittent aspiration on thin liquids. - Dysphagia Impressions/Plan Swallowing Skills: Impaired Dysphagia Impressions: Ongoing Evaluation *Silent aspiration: cannot be R/O at bedside Dysphagia Treatment Plan: Chin Tuck/Down, Safe Rate, 1/2 tsp. at a time, Elevate HOB during feed, Other (Feed when fully alert and less SOB.) Recommendations: Modified Barium Swallow (when able to tolerate) - Recommendations Diet Consistency: Dysphagia Pureed Medication Administration: Crushed with applesauce Liquids: [place] Thick, Other (no straws. single small sips at a time.) Supplement: Magic Cup, Ensure Pudding, Other (ensure compact)
--- NOTE | 2017-08-31 12:28 | EKG ---
Test Reason : Blood Pressure : / mmHG Vent. Rate : 116 BPM Atrial Rate : 337 BPM P-R Int : 000 ms QRS Dur : 094 ms QT Int : 316 ms P-R-T Axes : 072 -20 109 degrees QTc Int : 439 ms POOR DATA QUALITY, INTERPRETATION MAY BE ADVERSELY AFFECTED SINUS TACHYCARDIA ABNORMAL ECG Confirmed by NISHANT LEON, ALYCIA ([id number]) on 08/31/2017 12:28:12 PM Referred By: Confirmed By:ALYCIA DILLARD MD
--- NOTE | 2017-08-31 12:35 | EKG ---
Test Reason : Blood Pressure : / mmHG Vent. Rate : 109 BPM Atrial Rate : 109 BPM P-R Int : 122 ms QRS Dur : 098 ms QT Int : 328 ms P-R-T Axes : 072 -19 102 degrees QTc Int : 441 ms POOR DATA QUALITY, INTERPRETATION MAY BE ADVERSELY AFFECTED SINUS TACHYCARDIA WITH PREMATURE ATRIAL COMPLEXES LEFT VENTRICULAR HYPERTROPHY WITH REPOLARIZATION ABNORMALITY ABNORMAL ECG WHEN COMPARED WITH ECG OF 30-AUG-2017 09:12, NO SIGNIFICANT CHANGE WAS FOUND Confirmed by ALYCIA DILLARD MD ([id number]) on 08/31/2017 12:35:00 PM Referred By: Confirmed By:ALYCIA DILLARD MD
--- NOTE | 2017-08-31 14:23 | PN ---
Progress Note, Physician Chief Complaint: ID Critically ill Dyspneic wearing Vent ask Pip Tazobactam Congested - Current Medication List Current Medications: Active Medications Acetaminophen (Tylenol -) 650 mg PO Q4H PRN PRN Reason: PAIN OR FEVER Last Admin: 08/31/17 09:14 Dose: 650 mg Albuterol Sulfate (Ventolin 0.083% Nebulizer Soln -) 1 amp NEB Q4H PRN PRN Reason: SHORT OF BREATH/WHEEZING Last Admin: 08/31/17 08:30 Dose: 1 amp Aspirin (Ecotrin -) 81 mg PO DAILY [facility] Last Admin: 08/31/17 09:15 Dose: 81 mg Carbidopa/Levodopa (Sinemet *Cr* 25/100 -) 1 combo PO TIDCM [facility] Last Admin: 08/31/17 12:21 Dose: 1 combo Diltiazem HCl (Cardizem -) 30 mg PO TID [facility] Last Admin: 08/31/17 14:07 Dose: 30 mg Enoxaparin Sodium (Lovenox -) 40 mg SQ DAILY [facility] Last Admin: 08/31/17 09:14 Dose: 40 mg Piperacillin Sod/Tazobactam (Sod 3.375 gm/ Dextrose) 100 mls @ 200 mls/hr IVPB Q8H-IV [facility] Last Admin: 08/31/17 09:13 Dose: 200 mls/hr Sodium Chloride (1/2 Normal Saline) 1,000 mls @ 50 mls/hr IV ASDIR [facility] Stop: 09/01/17 09:06 Last Admin: 08/31/17 12:22 Dose: 50 mls/hr Methylprednisolone Sodium Succinate (Solu-Medrol -) 40 mg IVPB BID [facility] Last Admin: 08/31/17 09:15 Dose: 40 mg Nystatin (Nystatin Oral Suspension -) 500,000 units PO Q6HPO [facility] Last Admin: 08/31/17 12:21 Dose: 500,000 units Pantoprazole Sodium (Protonix -) 40 mg PO DAILY [facility] Last Admin: 08/31/17 09:14 Dose: 40 mg - Objective Vital Signs: Vital Signs Temperature 98.4 F 08/31/17 09:00 Pulse Rate 124 H 08/31/17 09:00 Respiratory Rate 28 H 08/31/17 09:00 Blood Pressure 142/92 08/31/17 09:00 O2 Sat by Pulse Oximetry (%) 94 L 08/30/17 20:05 Constitutional: Yes: Moderate Distress Neck: Yes: WNL, Supple Cardiovascular: Yes: S1, S2 Respiratory: Yes: Rhonchi, Other (Cource rhonchi) Gastrointestinal: Yes: WNL, Normal Bowel Sounds, Soft. No: Tenderness, Tenderness, Epigastrium Edema: No Labs: CBC, BMP 08/31/17 05:05 08/31/17 05:05 INR, PTT INR 1.04 (0.82-1.09) 08/30/17 10:05 Problem List - Problems (1) Sepsis Code(s): A41.9 - SEPSIS, UNSPECIFIED ORGANISM (2) Gram-negative bacteremia Code(s): R78.81 - BACTEREMIA (3) UTI (urinary tract infection) Code(s): N39.0 - URINARY TRACT INFECTION, SITE NOT SPECIFIED Assessment/Plan Microbiology 08/30/17 12:15 Urine - Urine Clean Catch Urine Culture - Preliminary Lactose Fermenting Neg Bacilli Group D Strep Or Entero Coccus 08/30/17 10:05 Blood - Peripheral Venous Blood Culture - Preliminary Pending Organism Laboratory Tests 08/31/17 08/31/17 05:05 05:05 WBC 8.4 Hgb 10.4 L Plt Count 246 BUN 31 H Creatinine 1.1 H Creat Clearance w eGFR 48.16 Assessment Sepsis syndrome urinary tract infection Gram negative bacteremia Chronic lung disaease Plan Zosyn as ordered Palliative care evaluation seems warrented Discussed PMD Anil LEON
[2017-08-31] MEDS ORDERED: ALBUTEROL SO4 0.083% IH SOL 2.5 MG/3 ML VIAL.NEB. NEB PRN (14:36)
--- NOTE | 2017-08-31 14:41 | PN ---
Progress Note (short form) - Note Progress Note: Patient seen and examined on the Telemetry unit. Tachypneic on NRBM. Tachycardia. Family/ at the bedside. Awake and responsive. Concern for tachycardia and tremors with Albuterol. Intake & Output 08/28/17 08/29/17 08/30/17 08/31/17 23:59 23:59 23:59 23:59 Intake Total 340 220 Balance 340 220 Weight 115 lb Last Vital Signs Temp Pulse Resp BP Pulse Ox 98.4 F 124 H 28 H 142/92 92 L 08/31/17 09:00 08/31/17 09:00 08/31/17 09:00 08/31/17 09:00 08/31/17 09:00 Active Medications Acetaminophen (Tylenol -) 650 mg PO Q4H PRN PRN Reason: PAIN OR FEVER Last Admin: 08/31/17 09:14 Dose: 650 mg Albuterol Sulfate (Ventolin 0.083% Nebulizer Soln -) 1 amp NEB Q4H PRN PRN Reason: SHORT OF BREATH/WHEEZING Aspirin (Ecotrin -) 81 mg PO DAILY [facility] Last Admin: 08/31/17 09:15 Dose: 81 mg Carbidopa/Levodopa (Sinemet *Cr* 25/100 -) 1 combo PO TIDCM [facility] Last Admin: 08/31/17 12:21 Dose: 1 combo Diltiazem HCl (Cardizem -) 30 mg PO TID [facility] Last Admin: 08/31/17 14:07 Dose: 30 mg Enoxaparin Sodium (Lovenox -) 40 mg SQ DAILY [facility] Last Admin: 08/31/17 09:14 Dose: 40 mg Piperacillin Sod/Tazobactam (Sod 3.375 gm/ Dextrose) 100 mls @ 200 mls/hr IVPB Q8H-IV [facility] Last Admin: 08/31/17 09:13 Dose: 200 mls/hr Sodium Chloride (1/2 Normal Saline) 1,000 mls @ 50 mls/hr IV ASDIR [facility] Stop: 09/01/17 09:06 Last Admin: 08/31/17 12:22 Dose: 50 mls/hr Ipratropium [place] (Atrovent 0.02% Nebulizer -) 1 amp NEB RTID [facility] Methylprednisolone Sodium Succinate (Solu-Medrol -) 40 mg IVPB BID [facility] Last Admin: 08/31/17 09:15 Dose: 40 mg Nystatin (Nystatin Oral Suspension -) 500,000 units PO Q6HPO [facility] Last Admin: 08/31/17 12:21 Dose: 500,000 units Pantoprazole Sodium (Protonix -) 40 mg PO DAILY [facility] Last Admin: 08/31/17 09:14 Dose: 40 mg Constitutional: Yes: Awake and alert, Tachypneic at rest on NRBM Eyes: Yes: EOM Intact HENT: Yes: Normocephalic Neck: Yes: Decreased ROM Cardiovascular: Yes: Tachycardia, S1, S2 Respiratory: Yes: Bilateral coarse crackles and wheezes Gastrointestinal: Yes: Soft Edema: No Neurological: Yes: Alert, Pre-Existing Deficit Labs: Laboratory Results - last 24 hr 08/30/17 08/31/17 08/31/17 18:05 02:20 05:05 WBC 8.4 RBC 3.71 Hgb 10.4 L Hct 33.3 MCV 89.7 MCH 28.0 MCHC 31.2 L RDW 17.9 H Plt Count 246 MPV 8.0 D Neutrophils % No Result Required. Lymphocytes % No Result Required. Puncture Site Right radial ABG pH 7.33 L ABG pCO2 at Pt Temp 47.4 H ABG pO2 at Pt Temp 58.7 L D ABG HCO3 24.0 ABG O2 Sat (Measured) 87.8 L ABG O2 Content 12.6 L ABG Base Excess -1.6 David Test Positive O2 Delivery Device Nrm Oxygen Flow Rate 100% Sodium Potassium Chloride Carbon Dioxide Anion Gap BUN Creatinine Creat Clearance w eGFR Random Glucose Calcium Total Bilirubin AST ALT Alkaline Phosphatase Creatine Kinase 31 Troponin I 0.13 H Total Protein Albumin 08/31/17 08/31/17 05:05 06:05 WBC RBC Hgb Hct MCV MCH MCHC RDW Plt Count MPV Neutrophils % Lymphocytes % Puncture Site Right radial ABG pH 7.41 ABG pCO2 at Pt Temp 39.5 ABG pO2 at Pt Temp 75.2 D ABG HCO3 24.3 ABG O2 Sat (Measured) 95.2 ABG O2 Content 13.0 L ABG Base Excess 0.2 David Test Positive O2 Delivery Device Non rebreather Oxygen Flow Rate Yes Sodium 145 Potassium 4.5 Chloride 110 H Carbon Dioxide 28 Anion Gap 7 L BUN 31 H Creatinine 1.1 H Creat Clearance w eGFR 48.16 Random Glucose 155 H Calcium 8.1 L Total Bilirubin 0.7 AST 20 ALT 12 Alkaline Phosphatase 84 Creatine Kinase 20 L Troponin I 0.09 H Total Protein 5.5 L Albumin 2.0 L Problem List - Problems (1) Bronchiectasis with acute lower respiratory infection Code(s): J47.0 - BRONCHIECTASIS WITH ACUTE LOWER RESPIRATORY INFECTION (2) Parkinson disease Code(s): G20 - PARKINSON'S DISEASE (3) COPD (chronic obstructive pulmonary disease) Code(s): J44.9 - CHRONIC OBSTRUCTIVE PULMONARY DISEASE, UNSPECIFIED Qualifiers: COPD type: unspecified COPD Qualified Code(s): J44.9 - Chronic obstructive pulmonary disease, unspecified (4) Pneumonia Code(s): J18.9 - PNEUMONIA, UNSPECIFIED ORGANISM Assessment/Plan ACUTE EXACERBATION BRONCHIECTASIS INFECTED R/O PNEUMONIA MULTIPLE CO-MORBID CONDITIONS LISTED FOLLOW CULTURE IV ANTIBIOTICS PER ID INCREASE IV STEROIDS BRONCHODILATOR : ATROVENT O2 SUPPLEMENTATION / IF WORSENS CAN ORDER NIPPV ASPIRATION PRECAUTIONS SHOULD CLARIFY GOC IF SHE WORSENS DR MAE
[2017-08-31] MEDS: IPRATROPIUM BR 0.02% 0.5 MG/2.5 ML VIAL.NEB. NEB SCH ×2 (14:53→21:45)
[2017-08-31 15:23] LABS: PLATELET ESTIMATE ADEQUATE
[2017-08-31] MEDS ORDERED: PT OWN MED DRAWER 7, Y5N ONE (16:57)
[2017-08-31] MEDS: HYDROmorphone HCL CARPU-JECT 2 MG/1 ML DISP.SYRIN IVPB PRN (17:06)
--- NOTE | 2017-08-31 18:40 | PN ---
Progress Note (short form) - Note Progress Note: 76 year old female admitted wth cough and SOB and diagnosed to [facility] acute bronchitis. H/o of parkinsonism, COPD,and bronchiectasis. Patient remains SOB on O2, restless, and has severe coarse tremors. Active Medications Generic Name Dose Route Start Last Admin Trade Name Freq PRN Reason Stop Dose Admin Acetaminophen 650 mg 08/30/17 16:02 08/31/17 09:14 Tylenol - PO 650 mg Q4H PRN Administration PAIN OR FEVER Albuterol Sulfate 1 amp 08/31/17 14:36 Ventolin 0.083% Nebulizer Soln - NEB Q4H PRN SHORT OF BREATH/WHEEZING Aspirin 81 mg 08/31/17 10:00 08/31/17 09:15 Ecotrin - PO 81 mg DAILY [facility] Administration Carbidopa/Levodopa 1 combo 08/30/17 17:30 08/31/17 17:11 Sinemet *Cr* 25/100 - PO 1 combo TIDCM [facility] Administration Diltiazem HCl 30 mg 08/30/17 22:00 08/31/17 14:07 Cardizem - PO 30 mg TID [facility] Administration Enoxaparin Sodium 40 mg 08/31/17 10:00 08/31/17 09:14 Lovenox - SQ 40 mg DAILY [facility] Administration Hydromorphone HCl 0.5 mg 08/31/17 16:44 08/31/17 17:06 Dilaudid Injection - IVPB 0.5 mg Q4H PRN Administration PAIN LEVEL 6-10 Piperacillin Sod/Tazobactam 100 mls @ 200 mls/hr 08/30/17 18:00 08/31/17 17: 11 Sod 3.375 gm/ Dextrose IVPB 200 mls/hr Q8H-IV [facility] Administration Sodium Chloride 1,000 mls @ 50 mls/hr 08/31/17 09:15 08/31/17 12:22 1/2 Normal Saline IV 09/01/17 09:06 50 mls/hr ASDIR [facility] Administration Ipratropium [place] 1 amp 08/31/17 14:45 08/31/17 14:53 Atrovent 0.02% Nebulizer - NEB 1 amp RTID [facility] Administration Methylprednisolone Sodium Succinate 40 mg 08/30/17 22:00 08/31/17 09:15 Solu-Medrol - IVPB 40 mg BID [facility] Administration Nystatin 500,000 units 08/30/17 18:00 08/31/17 17:11 Nystatin Oral Suspension - PO 500,000 units Q6HPO [facility] Administration Pantoprazole Sodium 40 mg 08/31/17 10:00 08/31/17 09:14 Protonix - PO 40 mg DAILY [facility] Administration Last Vital Signs Temp Pulse Resp BP Pulse Ox 97.6 F 124 H 21 136/75 92 L 08/31/17 14:46 08/31/17 09:00 08/31/17 14:46 08/31/17 14:46 08/31/17 09:00 NECK: supple, no JVD, carotids2+. HEART: PMI in the 5th ICS, heart sounds obscured by coarse breath sounds. LUNGS: Coarse crepitations at the left base. ABDOMEN: soft and nontender, on organomegaly, no masses felt. EXT: no calf tenderness or pedal edema. CBC, BMP 08/31/17 05:05 08/31/17 05:05 Troponin, BNP 08/30/17 08/31/17 18:05 05:05 Troponin I 0.13 H 0.09 H A: 1. Acute Asthmatic bronchitis. 2. Chest pain syndrome compatible with CAD, angina pectoris. 3. Parkinsonism 4. Pancreas divisum,s/p recurring pancreatitis. Recommendation: 1. Increase dose of cardizem. 2. Add oral nitrates. 3. BNP. 4. If troponins remain elevated iv nitro and heparin. 5. If repiratory distress persists transfer to ccu. Prognosis critical.
[2017-09-01] MEDS ORDERED: PT OWN MED DRAWER 7, Y5N ONE ×2 (02:07→09:43)
[2017-09-01] MEDS: PIPERACILLIN/TAZOB 3.375 GM 3.375 GM in DEXTROSE 5%-WATER - 100 ML IVPB SCH ×2 (02:15→10:31)
[2017-09-01] MEDS: dilTIAZem HCL 30 MG TABLET (FP) PO SCH ×3 (06:31→21:48)
[2017-09-01] MEDS: NYSTATIN 500,000 UNITS/5 ML SUSPENSION PO SCH ×3 (06:31→17:20)
[2017-09-01] MEDS: IPRATROPIUM BR 0.02% 0.5 MG/2.5 ML VIAL.NEB. NEB SCH ×3 (07:40→21:44)
[2017-09-01 09:01] LABS: HEMATOCRIT 34.8 % (32.4-45.2); HEMOGLOBIN 10.5 GM/dL (10.7-15.3); MCH 27.7 pg (25.7-33.7); MCHC 30.2 g/dl (32.0-36.0); MEAN CELL VOLUME 91.7 fl (80-96); MEAN PLT VOLUME 7.8 fl (7.5-11.1); PLATELET COUNT 251 K/MM3 (134-434); RBC 3.79 M/mm3 (3.60-5.2); RDW 18.6 % (11.6-15.6); WHITE BLOOD COUNT 6.6 K/mm3 (4.0-10.0)
[2017-09-01 09:42] LABS: ALBUMIN 1.8 g/dl (3.4-5.0); ANION GAP 11 (8-16); BILIRUBIN,TOTAL 0.6 mg/dL (0.2-1.0); BLOOD UREA NITROGEN 56 mg/dL (7-18); CHLORIDE 110 mmol/L (98-107); CO2 25 mmol/L (21-32); GLUCOSE,RANDOM 109 mg/dL (74-106); POTASSIUM 5.1 mmol/L (3.5-5.1); SGOT/AST 33 U/L (15-37); SGPT/ALT 7 U/L (12-78); SODIUM 146 mmol/L (136-145); TOT PROT 5.4 g/dl (6.4-8.2)
[2017-09-01 09:43] LABS: ALK PHOS 73 U/L (45-117)
[2017-09-01] MEDS: ENOXAPARIN NA (PORCINE) 40 MG/0.4 ML DISP.SYRIN SQ SCH (10:32)
[2017-09-01] MEDS: methylPREDNISolone NA SUCC 125 MG/2 ML VIAL IVPB SCH ×2 (10:32→21:59)
[2017-09-01] MEDS: ASPIRIN COATED 81 MG TABLET.EC PO SCH (10:32)
[2017-09-01] MEDS: PANTOPRAZOLE 40 MG TABLET (FP) PO SCH (10:32)
--- NOTE | 2017-09-01 11:10 | PN ---
Progress Note (short form) - Note Progress Note: 76 year old female admitted with cough and SOB and diagnosed to have acute bronchitis. H/o of Parkinsonism, COPD,and bronchiectasis. Patient progressive deterioration of respiratory status on BiPAP and patient has been made DNR/DNI. Son is in attendance and is aware of medical status. Active Medications Generic Name Dose Route Start Last Admin Trade Name Freq PRN Reason Stop Dose Admin Acetaminophen 650 mg 08/30/17 16:02 08/31/17 09:14 Tylenol - PO 650 mg Q4H PRN Administration PAIN OR FEVER Albuterol Sulfate 1 amp 08/31/17 14:36 Ventolin 0.083% Nebulizer Soln - NEB Q4H PRN SHORT OF BREATH/WHEEZING Aspirin 81 mg 08/31/17 10:00 09/01/17 10:32 Ecotrin - PO 81 mg DAILY ADRIAN Administration Carbidopa/Levodopa 1 combo 08/30/17 17:30 09/01/17 08:40 Sinemet *Cr* 25/100 - PO 1 combo TIDCM ADRIAN Administration Diltiazem HCl 30 mg 08/30/17 22:00 09/01/17 06:31 Cardizem - PO 30 mg TID ADRIAN Administration Enoxaparin Sodium 40 mg 08/31/17 10:00 09/01/17 10:32 Lovenox - SQ 40 mg DAILY ADRIAN Administration Hydromorphone HCl 0.5 mg 08/31/17 16:44 08/31/17 17:06 Dilaudid Injection - IVPB 0.5 mg Q4H PRN Administration PAIN LEVEL 6-10 Piperacillin Sod/Tazobactam 100 mls @ 200 mls/hr 08/30/17 18:00 09/01/17 10: 31 Sod 3.375 gm/ Dextrose IVPB 200 mls/hr Q8H-IV ADRIAN Administration Ipratropium [place] 1 amp 08/31/17 14:45 09/01/17 07:40 Atrovent 0.02% Nebulizer - NEB 1 amp RTID ADRIAN Administration Methylprednisolone Sodium Succinate 40 mg 08/30/17 22:00 09/01/17 10:32 Solu-Medrol - IVPB 40 mg BID ADRIAN Administration Nystatin 500,000 units 08/30/17 18:00 09/01/17 06:31 Nystatin Oral Suspension - PO 500,000 units Q6HPO ADRIAN Administration Pantoprazole Sodium 40 mg 08/31/17 10:00 09/01/17 10:32 Protonix - PO 40 mg DAILY ADRIAN Administration Last Vital Signs Temp Pulse Resp BP Pulse Ox 98.4 F 108 H 24 88/58 92 L 09/01/17 08:10 09/01/17 08:10 09/01/17 08:10 09/01/17 08:10 09/01/17 06:10 NECK: supple, no JVD, carotids2+. HEART: PMI in the 5th ICS, heart sounds obscured by coarse breath sounds. LUNGS: Coarse crepitations at the right base and fine scattered crepitations- right lung. ABDOMEN: soft and nontender, on organomegaly, no masses felt. EXT: no calf tenderness or pedal edema. CBC, BMP 09/01/17 08:15 09/01/17 08:15 A: 1. Acute respiratory failure. 2. Acute bronchitis. 3. Parkinsonism. 4. CAD, acute coronary syndrome. 5. Pancreas divisum,s/p recurring pancreatitis. Recommendation: 1. Supportive care as requested by family. Prognosis: Grave.
[2017-09-01 11:34] LABS: ANISOCYTOSIS 1+; MACROCYTOSIS 1+; OVALOCYTE 1+; PLATELET ESTIMATE NORMAL
--- NOTE | 2017-09-01 12:13 | PN ---
Progress Note (short form) - Note Progress Note: advanced directive d/w family yesterday CBC, BMP 09/01/17 08:15 09/01/17 08:15 Vital Signs Period Temp Pulse Resp BP Sys/Garcia Pulse Ox Last 24 Hr 97.6 F-100.4 F 105-124 21-28 88-145/58-75 86-96 S1S2 less tachy scattered rhonchi, basal crackles arousable on BIPAP-sats are below 90 abd tender without guarding or rebound on left no edema resting tremor not eating IMP gram negative bacteremia advanced interstitial lung ds. NSTEMI? vs. cardiac strain HTN Parkinson's ds. polymylagia ARF Plan iv abx-adjust to renal function iv fluids BIPAP chest pt abd ct if medically more stable will get renal US, abd US consults appreciated d/w daughter and son at bedside at length continue palliative care DNR/DNI Problem List - Problems (1) Acute exacerbation of chronic obstructive bronchitis Code(s): J44.1 - CHRONIC OBSTRUCTIVE PULMONARY DISEASE W (ACUTE) EXACERBATION (2) COPD (chronic obstructive pulmonary disease) Code(s): J44.9 - CHRONIC OBSTRUCTIVE PULMONARY DISEASE, UNSPECIFIED Qualifiers: COPD type: unspecified COPD Qualified Code(s): J44.9 - Chronic obstructive pulmonary disease, unspecified (3) Chest pain Code(s): R07.9 - CHEST PAIN, UNSPECIFIED Qualifiers: Chest pain type: chest pain on breathing Qualified Code(s): R07.1 - Chest pain on breathing; R07.81 - Pleurodynia (4) Generalized weakness Code(s): R53.1 - WEAKNESS (5) History of polymyalgia rheumatica Code(s): Z87.39 - PERSONAL HISTORY OF DISEASES OF THE MS SYS AND CONN TISS
[2017-09-01] MEDS ORDERED: DEXTROSE 5%-0.45% SALINE 1,000 ML IV SCH ×2 (12:15→12:16)
--- NOTE | 2017-09-01 15:08 | PN ---
Progress Note, Physician History of Present Illness: PULMONARY COMFORTABLE ON BIPAP,LESS DYSPNEIC,LESS CONGESTED - Current Medication List Current Medications: Active Medications Acetaminophen (Tylenol -) 650 mg PO Q4H PRN PRN Reason: PAIN OR FEVER Last Admin: 08/31/17 09:14 Dose: 650 mg Albuterol Sulfate (Ventolin 0.083% Nebulizer Soln -) 1 amp NEB Q4H PRN PRN Reason: SHORT OF BREATH/WHEEZING Aspirin (Ecotrin -) 81 mg PO DAILY [facility] Last Admin: 09/01/17 10:32 Dose: 81 mg Carbidopa/Levodopa (Sinemet *Cr* 25/100 -) 1 combo PO TIDCM [facility] Last Admin: 09/01/17 12:56 Dose: 1 combo Diltiazem HCl (Cardizem -) 30 mg PO TID [facility] Last Admin: 09/01/17 13:33 Dose: Not Given Enoxaparin Sodium (Lovenox -) 40 mg SQ DAILY [facility] Last Admin: 09/01/17 10:32 Dose: 40 mg Hydromorphone HCl (Dilaudid Injection -) 0.5 mg IVPB Q4H PRN PRN Reason: PAIN LEVEL 6-10 Last Admin: 08/31/17 17:06 Dose: 0.5 mg Piperacillin Sod/Tazobactam (Sod 3.375 gm/ Dextrose) 100 mls @ 200 mls/hr IVPB Q8H-IV [facility] Last Admin: 09/01/17 10:31 Dose: 200 mls/hr Dextrose/Sodium Chloride (D5-1/2ns -) 1,000 mls @ 100 mls/hr IV ASDIR [facility] Ipratropium [place] (Atrovent 0.02% Nebulizer -) 1 amp NEB RTID [facility] Last Admin: 09/01/17 07:40 Dose: 1 amp Methylprednisolone Sodium Succinate (Solu-Medrol -) 40 mg IVPB BID [facility] Last Admin: 09/01/17 10:32 Dose: 40 mg Nystatin (Nystatin Oral Suspension -) 500,000 units PO Q6HPO [facility] Last Admin: 09/01/17 12:56 Dose: 500,000 units Pantoprazole Sodium (Protonix -) 40 mg PO DAILY [facility] Last Admin: 09/01/17 10:32 Dose: 40 mg - Objective Vital Signs: Vital Signs Temperature 97.4 F L 09/01/17 13:27 Pulse Rate 102 H 09/01/17 13:27 Respiratory Rate 24 09/01/17 13:27 Blood Pressure 84/44 09/01/17 13:27 O2 Sat by Pulse Oximetry (%) 86 L 09/01/17 11:35 Constitutional: Yes: Well Nourished, Calm Eyes: Yes: WNL HENT: Yes: WNL Neck: Yes: WNL Cardiovascular: Yes: WNL, Regular Rate and Rhythm Respiratory: Yes: Rhonchi (LILIAM RHONCHI) Gastrointestinal: Yes: Normal Bowel Sounds, Soft Extremities: Yes: WNL Edema: No Labs: CBC, BMP 09/01/17 08:15 09/01/17 08:15 INR, PTT INR 1.04 (0.82-1.09) 08/30/17 10:05 Assessment/Plan Problem List - Problems (1) Bronchiectasis with acute lower respiratory infection Code(s): J47.0 - BRONCHIECTASIS WITH ACUTE LOWER RESPIRATORY INFECTION (2) Parkinson disease Code(s): G20 - PARKINSON'S DISEASE (3) COPD (chronic obstructive pulmonary disease) Code(s): J44.9 - CHRONIC OBSTRUCTIVE PULMONARY DISEASE, UNSPECIFIED Qualifiers: COPD type: unspecified COPD Qualified Code(s): J44.9 - Chronic obstructive pulmonary disease, unspecified (4) Pneumonia Code(s): J18.9 - PNEUMONIA, UNSPECIFIED ORGANISM Assessment/Plan ACUTE EXACERBATION BRONCHIECTASIS INFECTED R/O PNEUMONIA MULTIPLE CO-MORBID CONDITIONS LISTED IV ANTIBIOTICS PER ID INCREASE IV STEROIDS BRONCHODILATOR : ATROVENT O2 SUPPLEMENTATION NIPPV ASPIRATION PRECAUTIONS DR HICKS
--- NOTE | 2017-09-01 15:27 | PN ---
Progress Note (short form) - Note Progress Note: ID Zosyn day 2 therapy Selected Entries 09/01/17 13:27 Temperature 97.4 F L Pulse Rate 102 H Respiratory 24 Rate Blood Pressure 84/44 Microbiology 08/31/17 02:30 Sputum - Expectorated Gram Stain - Final 08/31/17 02:30 Sputum - Expectorated Sputum Culture - Preliminary Non Lactose Fermenting Gnb 08/30/17 12:15 Urine - Urine Clean Catch Urine Culture - Preliminary Escherichia Coli Group D Strep Or Entero Coccus 08/30/17 10:05 Blood - Peripheral Venous Blood Culture - Preliminary Escherichia Coli Laboratory Tests 09/01/17 09/01/17 08:15 08:15 WBC 6.6 Hgb 10.5 L Hct 34.8 Plt Count 251 BUN 56 H D Creatinine 3.0 H Creat Clearance w eGFR 15.13 Assessment E Coli bacteremia UTI source pansensitive Plan Stop Zosyn and give Ceftriaxone Only treating with Ceftriaxone the blood culture Anil LEON Problem List - Problems (1) Sepsis Code(s): A41.9 - SEPSIS, UNSPECIFIED ORGANISM (2) Gram-negative bacteremia Code(s): R78.81 - BACTEREMIA (3) UTI (urinary tract infection) Code(s): N39.0 - URINARY TRACT INFECTION, SITE NOT SPECIFIED
[2017-09-01] MEDS: HYDROmorphone HCL CARPU-JECT 2 MG/1 ML DISP.SYRIN IVPB PRN (16:26)
[2017-09-01] MEDS ORDERED: CEFTRIAXONE 1 G/50 ML PREMIX 50 ML IVPB SCH (18:00)
[2017-09-01 21:33] VITALS: TEMP 97.8
[2017-09-02] MEDS: NYSTATIN 500,000 UNITS/5 ML SUSPENSION PO SCH (00:36)
--- NOTE | 2017-09-02 03:05 | PN ---
Progress Note (short form) - Note Progress Note: Hospitalist team called to pronounce an patient at 2:47am. Patient did not exhibit any breath sounds. No pulse was palpable peripherally and heart sounds were not present on auscultation. Pupils were fixed and were not reactive to light. No corneal reflex was elicited. Date of : 09/02/17 Time of : 2:55am -- Tahir Negron D.O., PGY1
[2017-09-02 03:47] VITALS: BP 55/32; PULSE 84
== END 2017-09-02 07:00 | disposition expired | DRG 871 ==
LOC: JER 08:44 → JERBED 12:05 → J4W 19:30
PROVIDERS: ADMIT Internal Medicine; ATTEND Internal Medicine
DX: A41.9 Sepsis, unspecified organism (principal); J96.00 Acute respiratory failure, unspecified whether with hypoxia or hypercapnia; J18.9 Pneumonia, unspecified organism; J44.1 Chronic obstructive pulmonary disease with (acute) exacerbation; N17.9 Acute kidney failure, unspecified; J84.9 Interstitial pulmonary disease, unspecified; N39.0 Urinary tract infection, site not specified; R53.1 Weakness; Z87.39 Personal history of other diseases of the musculoskeletal system and connective tissue; G20 Parkinson's disease; J20.9 Acute bronchitis, unspecified; R07.89 Other chest pain
CPT/HCPCS: 36415; 36600; 71045-TC; 76700-TC; 80053; 81003; 81015; 82550; 82803; 83605; 84484; 85025; 85610; 87040; 87070; 87086; 87186; 87205; 87804; 93005; 93010; 93306-TC; 94640; 94660; 99285-25